=== PATIENT | female | born 2005 | race Caucasian/White ===

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

== ENCOUNTER 2024-05-26 17:03 | Outpatient (REF) | payer MEDICAID, SELFPAY ==
[2024-05-26 15:09] LABS: Epithelial Cells Moderate HPF (Negative)
[2024-05-26 15:10] LABS: Bacteria Few HPF (Negative); C & S Indicated? C&S Done As Ordered; Crystals Negative HPF (Negative); Mucus Negative (Negative)
--- OUTSIDE RECORDS SUMMARY | 2024-05-26 17:15 | XMS_ITS | Continuity of Care Document ---
Author Organization [facility] Address [address] [place] [address] Care Team Providers Care Ribbon Cleaner Name Role Phone SIERRA GUAJARDO Primary Care Physician Encounter [facility] NBR [id number] Date(s): 09/03/23 - 09/03/23 [facility] [address] [place] [address]- [place] Encounter Diagnosis Encounter for supervision of normal first , second trimester(Final) - Weeks of gestation of not specified(Final) - Discharge Disposition: Home or Self Care Attending Physician: Javier Nance MD Admitting Physician: Javier Nance MD Allergies, Adverse Reactions, Alerts No Known Allergies Assessment and Plan Future Appointments Appointment Date:09/17/2023 02:00:00 PM Scheduled Provider:Pamela Hill APRN Location:[facility] Appointment Type:OB Follow Up Medications C-Titus DHA oral capsule 1 cap, Oral, Daily, # 90 cap, 3 Refill(s), Pharmacy: [facility] #93 Start Date: 06/24/23 Status: Ordered Phenergan 12.5 mg oral tablet 12.5 mg = 1 tab, Oral, every 6 hr, PRN as needed for nausea/vomiting, # 30 tab, 1 Refill(s), Pharmacy: [facility] #[facility] Start Date: 04/15/23 Status: Ordered Tylenol 325 mg oral capsule 325 mg = 1 cap, Oral, every 4 hr, PRN as needed for pain, # 20 cap, 0 Refill(s) Start Date: 04/15/23 Status: Ordered Vitamin C 500 mg oral tablet 500 mg = 1 tab, Oral, Daily, # 90 tab, 0 Refill(s) Start Date: 06/11/23 Status: Ordered Problem List Condition Confirmation Course Effective Dates Status Health St atus Informant Confirmed 04/15/23 Active Normal first in second trimester Confirmed Active Rubella non-immune status, antepartum Confirmed Active Procedures Procedure Date Related Diagnosis Body Site Status Extraction of wisdom tooth 1 2021 Completed 1X 4 Results Laboratory List Name Date CBC w/ Diff 09/03/23 Glucose 1Hr 50 gm OB 09/03/23 Automated Diff 09/03/23 Most recent to oldest [Reference Range]: 1 WBC [4.8-10.8 K/mcL] 10.1 K/mcL (09/03/23 1:29 PM) RBC [4.20-5.40 Million/mcL] 3.73 Million /mcL *LOW* (09/03/23 1:29 PM) Neutro Auto [42.2-75.2 %] 78.3 % *HI* (09/03/23 1:29 PM) Lymph Auto [20.5-51.1 %] 16.4 % *LOW* (09/03/23 1:29 PM) Mccone Auto [1.7-9.3 %] 4.7 % (09/03/23 1:29 PM) Basophil Auto [0.0-0.8 %] 0.3 % (09/03/23 1:29 PM) Baso Absolute [0.0-0.2 K/mcL] 0.0 K/mcL (09/03/23 1:29 PM) MCV [81.0-99.0 fL] 91.5 fL (09/03/23 1:29 PM) MCHC [32.0-37.0 g/dL] 34.0 g/dL (09/03/23 1:29 PM) Lymph Absolute [1.2-3.4 K/mcL] 1.7 K/mcL (09/03/23 1:29 PM) Hct [37.0-47.0 %] 34.1 % *LOW* (09/03/23 1:29 PM) Mccone Absolute [0.1-0.6 K/mcL] 0.5 K/mcL (09/03/23 1:29 PM) MCH [27.0-31.0 pg] 31.1 pg *HI* (09/03/23 1:29 PM) Neutro Absolute [1.4-6.5 K/mcL] 7.9 K/mc L *HI* (09/03/23 1:29 PM) Hgb [12.0-16.0 g/dL] 11.6 g/dL *LOW* (09/03/23 1:29 PM) MPV [7.4-10.4 fL] 9.1 fL (09/03/23 1:29 PM) Platelets [130-400 K/mcL] 185 K/mcL (09/03/23 1:29 PM) Eos Absolute [0.0-0.2 K/mcL] 0.0 K/mcL (09/03/23 1:29 PM) RDW-CV [11.5-14.5 %] 12.8 % (09/03/23 1:29 PM) Slide Review Not Indicated (09/03/23 1:29 PM) Gluc 1hr OB 72 *NA* (09/03/23 1:29 PM) Eos, Auto [0.00-3.00 %] 0.30 % (09/03/23 1:29 PM) Social History Social History Type Response Smoking Status Smoking tobacco use: Never tobacco user;Never entered on: 06/11/23 Sex Female Patient Care team information Care Team Personnel Name: SIERRA GUAJARDO Position: No Access Member Role: Primary Care Physician Address: Address: [address] Care Team Related Persons Name: FLORESITA VICTORIA Address: Home [address] [place], [place] [phone] [facility] Name: FLORESITA VICTORIA Address: Home [address] [place], [place] [phone] [place]
--- OUTSIDE RECORDS SUMMARY | 2024-05-26 17:15 | XMS_ITS | Continuity of Care Document ---
Author Organization [facility] Address [address] [place] [address] Care Team Providers Care Machine Baster Name Role Phone SIERRA GUAJARDO Primary Care Physician Encounter [facility] NBR [id number] Date(s): 12/03/23 - 12/03/23 [facility] [address] [place] [address] [place] Encounter Diagnosis Encounter for supervision of normal first , third trimester(Final) - Discharge Disposition: Home or Self Care Attending Physician: Javier Nance MD Admitting Physician: Javier Nance MD Referring Physician: Javier Nance MD Allergies, Adverse Reactions, Alerts No Known Allergies Assessment and Plan Future Appointments Medications C-Titus DHA oral capsule 1 cap, Oral, Daily, # 90 cap, 3 Refill(s), Pharmacy: [facility] #[facility] Start Date: 06/24/23 Status: Ordered NIFEdipine 10 mg oral capsule 10 mg = 1 cap, Oral, every 6 hr, 0 Refill(s) Start Date: 10/31/23 Status: Ordered Phenergan 12.5 mg oral tablet 12.5 mg = 1 tab, Oral, every 6 hr, PRN as needed for nausea/vomiting, # 30 tab, 1 Refill(s), Pharmacy: [email or web address] Start Date: 04/15/23 Status: Ordered Protonix 40 mg oral delayed release tablet 40 mg = 1 tab, Oral, Daily, # 30 tab, 1 Refill(s), Pharmacy: [facility] #93, 165.1, cm, 11/18/23 15:24:00 EST, Height, 60.5, kg, 12/01/23 15:42:00 EST, Weight Dosing Start Date: 12/01/23 Status: Ordered Tylenol 325 mg oral capsule 325 mg = 1 cap, Oral, every 4 hr, PRN as needed for pain, # 20 cap, 0 Refill(s) Start Date: 04/15/23 Status: Ordered Vitamin C 500 mg oral tablet 500 mg = 1 tab, Oral, Daily, # 90 tab, 0 Refill(s) Start Date: 06/11/23 Status: Ordered Problem List Condition Confirmation Course Effective Dates Status H ealth Status Informant growth restriction Confirmed Active Oligohydramnios without rupture of membranes Confirmed Active Confirmed 04/15/23 Active labor Confirmed Active Rubella non-immune status, antepartum Confirmed Active Encounter for care in third trimester of first Confirmed Active Uterine size-date discrepancy, third trimester Confirmed Active Procedures Procedure Date Related Diagnosis Body Site Status Extraction of wisdom tooth 2021 Completed 1X 4 Results Radiology Reports * Exam Date Time Procedure Performing Provider Status 12/03/23 7:35 AM US OB Follow Up Fadia Rodriguez; Renu ( Verified) Notes: (US OB Follow Up) Reason For Exam: Growth S<D US OB Follow Up EXAM DESCRIPTION: US OB Follow Up 12/03/2023 INDICATION: GROWTH S<D TECHNIQUE: Grayscale obstetric ultrasound COMPARISON: 10/06/2023 FINDINGS: Single live intrauterine gestation in cephalic position with average ultrasound age of 35 weeks 0 days for an ultrasound ANGELIQUE of 01/07/2024. This gestational age is significantly less than expected gestational age of approximately 39 weeks 3 days based on prior study and time interval. BPD: 33 weeks 0 days Head circumference: 35 weeks 4 days Abdominal circumference: 35 weeks 3 days Femur length: 36 weeks 0 days heart rate was 143 beats per minute. NI is 4.8 cm which is abnormally low. Estimated weight is 2637 g which is the 2nd percentile by LMP. IMPRESSION: Single live intrauterine gestation in cephalic position with average ultrasound age of 35 weeks 0 days for an ultrasound ANGELIQUE of 01/07/2024. This gestational age is significantly less than expected gestational age based on prior study and time interval as detailed above. Oligohydramnios Estimated weight is at the 2nd percentile by LMP. Results telephoned to referring physician at the time of interpretation. JOB #: [id number] Final Signed by: Javier Allan MD Signed (Electronic Signature): 12/03/2023 8:27 am Social History Social History Type Response Smoking Status Smoking tobacco use: Never tobacco user;Never entered on: 06/11/23 Sex Female Patient Care team information Care Team Personnel Name: CASANDRA SIERRA Position: No Access Member Role: Primary Care Physician Address: Address: [id number] [place] [address] Care Team Related Persons Name: LADONNA VICTORIA Address: Home [address] [place], [place] [id number] Name: FLORESITA VICTORIA Address: Home [address] [place], [place] [phone] [facility]
--- OUTSIDE RECORDS SUMMARY | 2024-05-26 17:15 | XMS_ITS | Continuity of Care Document ---
Author Organization [facility] Address [address] [place] [address] Care Team Providers Care Pre Planning Advisor Name Role Phone SIERRA GUAJARDO Primary Care Physician Encounter [facility] NBR [id number] Date(s): 07/10/23 - 07/10/23 [facility] [address] [place] [address] [place] Discharge Disposition: Home or Self Care Attending Physician: Dillon Connolly MD Admitting Physician: Dillon Connolly MD Referring Physician: Dillon Connolly MD Allergies, Adverse Reactions, Alerts No Known Allergies Assessment and Plan Future Scheduled Tests Radiology* US OB Limited 07/10/23 Medications C-Titus DHA oral capsule 1 cap, Oral, Daily, # 90 cap, 3 Refill(s), Pharmacy: [facility] Start Date: 06/24/23 Status: Ordered Phenergan 12.5 mg oral tablet 12.5 mg = 1 tab, Oral, every 6 hr, PRN as needed for nausea/vomiting, # 30 tab, 1 Refill(s), Pharmacy: [facility] #[facility] Start Date: 04/15/23 Status: Ordered Tylenol [...] of wisdom tooth 2021 Completed 1X 4 Social History Social History Type Response Smoking Status Smoking tobacco use: Never tobacco user;Never entered on: 06/11/23 Sex Female Patient Care team information Care Team Personnel Name: CASANDRA SIERRA Position: No Access Member Role: Primary Care Physician Address: Address: [id number] [place] [address] Care Team Related Persons Name: FLORESITA VICTORIA Address: Home [address] [place] [phone] [facility] Name: FLORESITA VICTORIA Address: Home [address] [place] [phone] [facility]
--- OUTSIDE RECORDS SUMMARY | 2024-05-26 17:15 | XMS_ITS | Continuity of Care Document ---
Author Organization [facility] Address [address] [place] [address] Care Team Providers Care Manager Fashion Name Role Phone SIERRA GUAJARDO Primary Care Physician Encounter [facility] NBR [id number] Date(s): 06/11/23 - 06/11/23 [facility] Ambulatory Clinics [address] [place], [place] [address] Discharge Disposition: Home Allergies, Adverse Reactions, Alerts No Known Allergies Assessment and Plan Future Appointments Appointment Date:07/16/2023 11:15:00 AM Scheduled Provider:Pamela Hill APRN Location:[facility] Appointment Type:OB Follow Up Future Scheduled Tests Radiology* US OB Greater Than 14 Weeks 07/16/23 Medications multivitamin adult, oral tablet 1 tab, Oral, Daily, # 30 tab, 0 Refill(s) Start Date: 04/15/23 Status: Ordered Phenergan 12.5 mg oral tablet 12.5 mg = 1 tab, Oral, every 6 hr, PRN as needed for nausea/vomiting, # 30 tab, 1 Refill(s), Pharmacy: [facility] #93 Start Date: 04/15/23 Status: Ordered Multivitamins 0 Refill(s) Start Date: 05/14/23 Status: Ordered Tylenol 325 mg oral capsule [...] Member Role: Primary Care Physician Address: Address: [place] [address]- Care Team Related Persons Name: FLORESITA VICTORIA Address: Home [address] [place] [phone] [facility] Name: FLORESITA VICTORIA Address: Home [address] [place] [phone] [facility]
--- OUTSIDE RECORDS SUMMARY | 2024-05-26 17:15 | XMS_ITS | Continuity of Care Document ---
Author Organization [facility] Ambulatory Clinics Address [address] [place] [address] Care Team Providers Care Social Security Assessor Name Role Phone SIERRA GUAJARDO Primary Care Physician [phone] Encounter [facility] NBR [id number] Date(s): 09/17/23 - 09/17/23 [facility] Ambulatory Clinics [address] [place], [place] [address] Encounter Diagnosis Encounter for care in third trimester of first (Discharge Diagnosis) - 09/17/23 Discharge Disposition: Home or Self Care Attending Physician: Pamela Hill APRN Allergies, Adverse Reactions, Alerts No Known Allergies Assessment and Plan Future Appointments Appointment Date:09/30/2023 02:45:00 PM Scheduled Provider:Pamela Hill APRN Location:[facility] Appointment Type:OB Follow Up Medications C-Titus DHA oral capsule 1 cap, Oral, Daily, # 90 cap, 3 Refill(s), Pharmacy: [facility] #[facility] Start Date: 06/24/23 Status: Ordered Phenergan 12.5 mg oral tablet 12.5 mg = 1 tab, Oral, every 6 hr, PRN as needed for nausea/vomiting, # 30 tab, 1 Refill(s), Pharmacy: [facility] #93 Start Date: 04/15/23 Status: Ordered Tylenol [...] Dates Status Health St atus Informant Confirmed 7/19/23 Active Rubella non-immune status, antepartum Confirmed Active Encounter for care in third trimester of first Confirmed Active Procedures Procedure Date Related Diagnosis Body Site Status Extraction of wisdom tooth 1 2021 Completed 1X 4 Vital Signs Most recent to oldest [Reference Range]: 1 Blood Pressure [90-140/60-90 mmHg] 94/56 mmHg (09/17/23 2:07 PM) Mean Arterial Pressure, Cuff [70-110 mmH g] 69 mmHg *LOW* (09/17/23 2:07 PM) Weight 58.3 kg (09/17/23 2:07 PM) Weight Measured (lbs) 128.529 lb (09/17/23 2:07 PM) Weight Dosing 58.300 kg (09/17/23 2:07 PM) [place] Body Weight Calculated 57 kg (09/17/23 2:07 PM) Height 165.1 cm (09/17/23 2:07 PM) Height/Length Measured (inches) 65 inch (09/17/23 2:07 PM) BSA Measured 1.64 m2 (09/17/23 2:07 PM) Body Mass Index 21.39 kg/m2 (09/17/23 2:07 PM) Body Mass Index Percentile 47.97 1 (09/17/23 2:07 PM) Height/Length Percentile 61.20 2 (09/17/23 2:07 PM) Weight Percentile 53.95 3 (09/17/23 2:07 PM) 1Result Comment: ^~:!Percentile Source -[facility] 2Result Comment: ^~:!Percentile Source -[facility] 3Result Comment: ^~:!Percentile Source -[facility] Social History Social History Type Response Smoking Status Smoking tobacco use: Never tobacco user;Never entered on: 06/11/23 Sex Female Physician Outpatient Note * Pamela Hill, EXPLOSIVE ORDNANCE MANAGER: PERFORM Event Display: Office Clinic Note Physician Authored Date: [id number] MIKEY VICTORIA :2005 Age:18 years Sex:Female Visit Date:09/17/2023 Primary Care Physician: SIERRA GUAJARDO ANGELIQUE/EGA Gestational Age (EGA) and ANGELIQUE? * Note: EGA calculated as of 09/17/2023 ?? ANGELIQUE:??12/05/2023?EGA*:??28 weeks 5 days ?Type:??Authoritative?Method Date:??04/15/2023 ?Method:??Ultrasound??(04/15/2023) ?Confirmation:??Confirmed ?Description:??-- ?Comments:??-- ?Entered by:??Shashank Ling MD on 05/14/2023? Other ANGELIQUE Calculations for this : ?Method:??Ultrasound ?Method Date:??07/31/2023 ?ANGELIQUE:??12/07/2023 ?EGA (At Entry):??21 weeks 4 days ?Type:??Non-Authoritative ?Comments:?? anatomy survey was completed ?Entered by:??Pamela Hill APRN on 09/16/2023 ?Method:??Ultrasound ?Method Date:??07/10/2023 ?ANGELIQUE:??12/07/2023 ?EGA (At Entry):??18 weeks 4 days ?Type:??Non-Authoritative ?Comments:??The technologist reports that the kidneys, abdominal ? cord insertion and spine are not well seen ?Entered by:??Pamela Hill APRN on 09/16/2023 ?Method:??Ultrasound ?Method Date:??05/14/2023 ?ANGELIQUE:??12/02/2023 ?EGA (At Entry):??11 weeks 1 days ?Type:??Non-Authoritative ?Comments:??BSUS transabd ?Entered by:??Shashank Ling MD on 05/14/2023 Chief Complaint OB follow up some RLP History of Present Illness OB f/u Physical Exam Vitals & Measurements BP:??94/56?? HT:??61.20??(Percentile)?? HT:??165.1??cm?? WT:??53.95??(Percentile)?? WT:??58.3??kg?? BMI:??47.97??(Percentile)?? BMI:??21.39?? BSA:??1.64?? Risk Factors Risk Factors, Antepartum Current Preg: Other: rubella nonimmune (05/15/23) Assessment/Plan 1.??Encounter for care in third trimester of first ??Z34.03 Baby is active. No lof/bleeding/ctx. Reviewed fm counting in the setting of decreased fm. Reviewed TDAP and RSV and will consider. Cards Exam and Notes ?? Exams and Notes ?? Date:??09/17/23 EGA:??28w5d Weight (lbs kg):??*128... Fundal Height (cm):??28 ? Blood Pressure (mmHg):??94/56 ? Cervix Exam (Dil cm/Eff %/Sta -):--/--/--?? Labor S/S:??None Urine Glucose:?? Urine Protein:?? Next Visit:??+2 weeks from 09/17/2023 Baby A?FHR:??145 ? Movement:??Present per patient ?Presentation:??-- ? Date:??09/03/23 EGA:??26w5d Weight (lbs kg):??*128... Fundal Height (cm):??-- ? Blood Pressure (mmHg):??92/50 ? Cervix Exam (Dil cm/Eff %/Sta -):--/--/--?? Labor S/S:?? Urine Glucose:?? Urine Protein:?? Next Visit:? Date:??08/07/23 EGA:??22w6d Weight (lbs kg):??*117... Fundal Height (cm):??23 ? Blood Pressure (mmHg):??98/52 ? Cervix Exam (Dil cm/Eff %/Sta -):--/--/--?? Labor S/S:??None Urine Glucose:?? Urine Protein:?? Next Visit:??+4 weeks from 08/07/2023 Baby A?FHR:??156 ? Movement:??Present per patient ?Presentation:??-- ? Date:??07/10/23 EGA:??18w6d Weight (lbs kg):??*118... Fundal Height (cm):??18 ? Blood Pressure (mmHg):??108/54 ? Cervix Exam (Dil cm/Eff %/Sta -):--/--/--?? Labor S/S:??None Urine Glucose:??Negative Urine Protein:??Negative Next Visit:??+4 weeks from 07/10/2023 Baby A?FHR:??150 ? Movement:?Presentation:??-- ? Date:??06/11/23 EGA:??14w5d Weight (lbs kg):??*112... Fundal Height (cm):??14 ? Blood Pressure (mmHg):??98/62 ? Cervix Exam (Dil cm/Eff %/Sta -):--/--/--?? Labor S/S:??None Urine Glucose:??Negative Urine Protein:??Trace Next Visit:??+5 weeks from 06/11/2023 Baby A?FHR:??154 ? Movement:?Presentation:??-- ? Date:??05/14/23 EGA:??10w5d Weight (lbs kg):??*110... Fundal Height (cm):??11 ? Blood Pressure (mmHg):??106/68 ? Cervix Exam (Dil cm/Eff %/Sta -):--/--/--?? Labor S/S:?? Urine Glucose:??Negative Urine Protein:??Trace Next Visit:??+4 weeks from 05/14/2023 Baby A?FHR:??165 ? Movement:?Presentation:??-- ? Date:??04/15/23 EGA:??6w4d?? Weight (lbs kg):??*109... Fundal Height (cm):??-- ? Blood Pressure (mmHg):??104/62 ? Cervix Exam (Dil cm/Eff %/Sta -):--/--/--?? Labor S/S:?? Urine Glucose:?? Urine Protein:?? Next Visit:? Problem List/Past Medical History Ongoing Encounter for care in third trimester of first Rubella non-immune status, antepartum Historical No qualifying data Procedure/Surgical History ???Extraction of wisdom tooth (2021) Medications C-Titus DHA oral capsule, 1 cap, Oral, Daily, 3 refills Phenergan 12.5 mg oral tablet, 12.5 mg= 1 tab, Oral, every 6 hr, PRN, 1 refills Tylenol 325 mg oral capsule, 325 mg= 1 cap, Oral, every 4 hr, PRN Vitamin C 500 mg oral tablet, 500 mg= 1 tab, Oral, Daily Allergies No Known Allergies Social History Alcohol Never Electronic Cigarette/Vaping Electronic Cigarette Use: Never. Employment/School Work/School description: Looking for work. 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 Previous employment/school: Inprocess of taking GED.. Exercise Exercise frequency: 3-4 times/week. Home/Environment Lives with Father, Mother, Siblings. Living situation: Home/Independent. Sexual Sexually active: Yes. Sexual orientation: Straight or heterosexual. Substance Use Never Tobacco Never tobacco user Tobacco Use:. Never Smokeless Tobacco use:. Family History Alive and well: Mother, Father, Brother, Grandfather (M), Grandfather (P), Grandmother (M) and Grandmother (P). PCM Transcribed Labs ABO/Rh Echo: A POS Blood Type, Transcribed: A positive Chlamydia Date Performed: 05/14/23 Chlamydia, Transcribed: Negative Genetic Testing Date Performed: 05/14/23 Genetic Testing, Results Text: Inheritest: negativeMaterniT 21: negative Genetic Testing, Transcribed: Yes Gonorrhea Date Performed: 05/14/23 Gonorrhea, Transcribed: Negative Hep Bs Ag: Non Reactive1 Hepatitis B Date Performed: 05/14/23 Hepatitis B, Transcribed: Negative HIV Antibodies, Transcribed: Negative HIV Date Performed: 05/14/23 RPR Date Performed: 05/14/23 RPR, Transcribed: Negative Rubella Date Performed: 05/14/23 Rubella,Transcribed: Nonimmune Electronically Signed on 09/17/23 02:38 PM Pamela Hill APRN Patient Care team information Care Team Personnel Name: SIERRA GUAJARDO Position: No Access Member Role: Primary Care Physician Address: Address: [id number] [place] [address] Care Team Related Persons Name: FLORESITA VICTORIA Address: Home [address] [place], [place] [phone] [facility] Name: FLORESITA VICTORIA Address: Home [address] [facility] [facility] [facility] [place], [place] [phone] [facility]
--- OUTSIDE RECORDS SUMMARY | 2024-05-26 17:15 | XMS_ITS | Continuity of Care Document ---
Author Organization [facility] Ambulatory Clinics Address [address] [place] [address] Care Team Providers Care Quality Assurance Lead Name Role Phone CASANDRA SIERRA Primary Care Physician Encounter [facility] NBR [id number] Date(s): 05/14/23 - 05/14/23 [facility] Ambulatory Clinics [address] [place], [place] [address] Encounter Diagnosis Irregular menses(Discharge Diagnosis) - 05/14/23 Supervision of normal first in first trimester(Discharge Diagnosis) - 05/14/23 Discharge Disposition: Home or Self Care Attending Physician: Shashank Ling MD Allergies, Adverse Reactions, Alerts No Known Allergies Assessment and Plan Future Appointments Appointment Date:06/11/2023 09:45:00 AM Scheduled Provider:Dillon Connolly Location:[facility] Appointment Type:OB Follow Up Medications multivitamin adult, oral tablet 1 tab, Oral, Daily, # 30 tab, 0 Refill(s) Start Date: 04/15/23 Status: Ordered Phenergan 12.5 mg oral tablet 12.5 mg = 1 tab, Oral, every 6 hr, PRN as needed for nausea/vomiting, # 30 tab, 1 Refill(s), Pharmacy: [id number] Start Date: 04/15/23 Status: Ordered DHA 200 mg oral capsule 200 mg = 1 cap, Oral, Daily, # 90 cap, 4 Refill(s), Pharmacy: [id number] Start Date: 04/15/23 Status: Ordered Multivitamins 0 Refill(s) Start Date: 05/14/23 Status: Ordered Tylenol 325 mg oral capsule 325 mg = 1 cap, Oral, every 4 hr, PRN as needed for pain, # 20 cap, 0 Refill(s) Start Date: 04/15/23 Status: Ordered Problem List Condition Confirmation Course Effective Dates Status Health St [facility] Informant Confirmed 04/15/23 Active Results Most recent to oldest [Reference Range]: 1 Protein Urine Dipstick Trace (05/14/23 9:58 AM) Glucose Urine Dipstick Negative (05/14/23 9:58 AM) Urine Color Urine Dipstick Yellow (05/14/23 9:58 AM) Urine Appearance Urine Dipstick Clear (05/14/23 9:58 AM) Vital Signs Most recent to oldest [Reference Range]: 1 2 Blood Pressure [90-140/60-90 mmHg] 106/6 8mmHg (05/14/23 9:58 AM) Weight 49.9 kg (05/14/23 9:58 AM) Weight Measured (lbs) 110.011 lb (05/14/23 9:58 AM) Moon Body Weight Calculated 57 kg (05/14/23 9:58 AM) Height 165.10 cm (05/14/23 9:58 AM) 165.10 cm (05/14/23 9:58 AM) Height/Length Measured (inches) 65 inch (05/14/23 9:58 AM) BSA Measured 1.51 m2 (05/14/23 9:58 AM) Body Mass Index 18.31 kg/m2 (05/14/23 9:58 AM) 18.31 kg/m2 (05/14/23 9:58 AM) Body Mass Index Percentile 9.60 1 (05/14/23 9:58 AM) Height/Length Percentile 61.41 2 (05/14/23 9:58 AM) Weight Percentile 17.84 3 (05/14/23 9:58 AM) 1Result Comment: ^~:!Percentile Source -CDC 2Result Comment: ^~:!Percentile Source -CDC 3Result Comment: ^~:!Percentile Source -CDC Social History Social History Type Response Tobacco Never tobacco user T obacco Use:. Sex Female Physician Outpatient Note * Shashank Ling MD: PERFORM Event Display: Office Clinic Note Physician Authored Date: [id number] MIKEY VICTORIA :2005 Age:17 years Sex:Female Visit Date:05/14/2023 Primary Care Physician: YOUNG, SIERRA ANGELIQUE/EGA Gestational Age (EGA) and ANGELIQUE? * Note: EGA calculated as of 05/14/2023 ?? ANGELIQUE:??12/05/2023?EGA*:??10 weeks 5 days ?Type:??Authoritative?Method Date:??04/15/2023 ?Method:??Ultrasound??(04/15/2023) ?Confirmation:??Confirmed ?Description:??-- ?Comments:??-- ?Entered by:??Shashank Ling MD on 05/14/2023? Other ANGELIQUE Calculations for this : ?Method:??Ultrasound ?Method Date:??05/14/2023 ?ANGELIQUE:??12/02/2023 ?EGA (At Entry):??11 weeks 1 days ?Type:??Non-Authoritative ?Comments:??BSUS transabd ?Entered by:??Shashank Ling MD on 05/14/2023 Chief Complaint OB follow-up History of Present Illness She feels well overall.?? No cramps or bleeding.?? 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 She would like to move forward with genetic screening.?? She states her partner??is involved and excited about the .?? As best as she??can tell, his??health is??fine. ??He does not see a doctor for anything on a regular basis. ??No known genetic??issues in his family. Physical Exam Vitals & Measurements BP:??106/68?? HT:??61.41??(Percentile)?? HT:??165.10??cm?? HT:??165.10??cm?? WT:??17.84??(Percentile)?? WT:??49.9??kg?? BMI:??9.60??(Percentile)?? BMI:??18.31?? BMI:??18.31?? BSA:??1.51?? Risk Factors No risk factors documented Assessment/Plan 1.??Irregular menses??N92.6 ?? 2.??Supervision of normal first in first trimester??Z34.01 Overall things look good with the .?Progressing nicely.?? Her nausea has improved significantly.?? I reviewed some??early OB?? care information.?? No??concerning??issues??on further??questioning.?? She would like to move forward with genetic testing and would like to know the gender of the baby as well.?? Down for these tests as well as her routine labs today.?? I reviewed information surrounding the logistics of our practice.?? I explained the different labs that we typically recommend??and??explained when she would have her formal ultrasound. Ordered: ABO/Rh Echo, Blood, Routine, 05/14/23 17:20:00 EDT, by Gro[facility] Lab Collect, Encounter for supervision of normal first , first trimester ABSC Echo, Blood, Routine, 05/14/23 17:20:00 EDT, by Grover GOLD, Lab Collect, Encounter for supervision of normal first , first trimester Automated Diff, Blood, Routine, Collected, 05/14/23 10:51:00 EDT, by Grover GOLD, Lab Collect, Encounter for supervision of normal first , first trimester, [id number] CBC w/ Diff, Blood, Routine, Collected, 05/14/23 10:51:00 EDT, by [facility] Lab Collect, Encounter for supervision of normal first , first trimester Hepatitis B Surface Antigen, Blood, Routine, 05/14/23 17:20:00 EDT, by Grover GOLD, Lab Collect,Encounter for supervision of normal first , first trimester HIV Ag/Ab Combo 1/2, Blood, Routine, Collected, 05/14/23 10:51:00 EDT, by Grover GOLD, Lab Collect, Encounter for supervision of normal first , first trimester Inheritest Core Panel Ref, Blood, Routine, 05/14/23 17:20:00 EDT, by Grover GOLD, Lab Collect, Encounter for supervision of normal first , first trimester MaterniT 21 PLUS w/ESS and SCA Ref, Blood, Routine, 05/14/23 17:20:00 EDT, by Grover GOLD, Lab Collect, Encounter for supervision of normal first , first trimester Rubella IgG, Blood, Routine, 05/14/23 17:20:00 EDT, by Grover GOLD, Lab Collect, Encounter for supervision of normal first , first trimester Syphilis Abs Qual, Blood, Routine, 05/14/23 17:20:00 EDT, by Grover GOLD, Lab Collect, Encounterfor supervision of normal first , first trimester ?? Orders: Chlamydia trachomatis and Neisseria gonorrhoeae (GeneXpert), Urine, Routine Collect, 05/14/23 17:19:00 EDT, Once, Nurse collect, Print Label, Routine screening for STI (sexually transmitted infection) Cards Exam and Notes ?? Exams and Notes ?? Date:??05/14/23 EGA:??10w5d Weight (lbs kg):??*110... Fundal Height [...] Next Visit:? Problem List/Past Medical History Ongoing Historical No qualifying data Medications multivitamin adult, oral tablet, 1 tab, Oral, Daily Phenergan 12.5 mg oral tablet, 12.5 mg= 1 tab, Oral, every 6 hr, PRN, 1 refills DHA 200 mg oral capsule, 200 mg= 1 cap, Oral, Daily, 4 refills Multivitamins Tylenol 325 mg oral capsule, 325 mg= 1 cap, Oral, every 4 hr, PRN Allergies No Known Allergies Social History Alcohol Never Electronic Cigarette/Vaping Electronic Cigarette Use: Never. Employment/School Work/School description: Looking for work. 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 Previous employment/school: Inprocess of taking GED.. Exercise Exercise frequency: 3-4 times/week. Home/Environment Lives with Father, Mother, Siblings. Living situation: Home/Independent. Sexual Sexually active: Yes. Sexual orientation: Straight or heterosexual. Substance Use Never Tobacco Never tobacco user Tobacco Use:. Family History Alive and well: Mother, Father, Brother, Grandfather (M), Grandfather (P), Grandmother (M) and Grandmother (P). PCM Transcribed Labs No qualifying data Electronically Signed on 05/14/23 10:57 AM Shashank Ling MD Patient Care team information Care Team Personnel Name: SIERRA GUAJARDO Position: No Access Member Role: Primary Care Physician Address: Address: [place] [address]- Care Team Related Persons Name: FLORESITA VICTORIA Address: Home [address] [place], [place] [id number] [facility] Name: FLORESITA VICTORIA Address: Home [address] [place], [place] [id number] [place]
--- OUTSIDE RECORDS SUMMARY | 2024-05-26 17:15 | XMS_ITS | Continuity of Care Document ---
Author Organization [facility] Ambulatory Clinics Address [address] [place] [address] Care Team Providers Care Biofuels Processing Technician Name Role Phone SIERRA GUAJARDO Primary Care Physician [phone] Encounter [facility] NBR [id number] Date(s): 08/06/23 - 08/06/23 [facility] Ambulatory Clinics [address] [place], [place] [address] Discharge Disposition: Home Allergies, Adverse Reactions, Alerts No Known Allergies Medications C-Titus DHA oral capsule 1 cap, Oral, Daily, # 90 cap, 3 Refill(s), Pharmacy: [id number] Start Date: 06/24/23 Status: Ordered Phenergan 12.5 mg oral tablet 12.5 mg = 1 tab, Oral, every 6 hr, PRN as needed for nausea/vomiting, # 30 tab, 1 Refill(s), Pharmacy: [id number] Start Date: 04/15/23 Status: Ordered [...] Member Role: Primary Care Physician Address: Address: [address] [address]- Care Team Related Persons Name: FLORESITA VICTORIA Address: Home [address] [place], [place] [id number] [facility] Name: FLORESITA VICTORIA Address: Home [address] [place], [place] [phone] [facility]
--- OUTSIDE RECORDS SUMMARY | 2024-05-26 17:15 | XMS_ITS | Continuity of Care Document ---
Author Organization [facility] Ambulatory Clinics Address [address] [place] [address] Care Team Providers Care Substation Operator Apprentice Name Role Phone CASANDRA SIERRA Primary Care Physician [phone] Encounter [facility] NBR [id number] Date(s): 11/24/23 - 11/24/23 [facility] Ambulatory Clinics [address] [place] [address]- Encounter Diagnosis Encounter for care in third trimester of first (Discharge Diagnosis) - 11/24/23 Discharge Disposition: Home or Self Care Attending Physician: Javier Nance MD Allergies, Adverse Reactions, Alerts No Known Allergies Assessment and Plan Extracted from: Title:OB Extended Office Visit Author:Javier redman MD Date:11/24/23 1.??Encounter for c are in third trimester of first ??Z34.03 Low abdominal cramping Has had fevers and chills for 1-2 days. Had home Covid test that returned negative. Referred to urgent care for flu swab. Size measures less than dates. Referred for growth US this week. ? Ordered: US OB Follow Up, 11/24/23, Routine, Reason: Growth S<D, Transport Mode: Ambulatory, Encounter for care in third trimester of first ?? Future Appointments Appointment Date:12/03/2023 08:00:00 AM Scheduled Provider:Javier Nance MD Location:[facility] Appointment Type:OB Follow Up Appointment Date:12/07/2023 02:30:00 PM Scheduled Provider:Dillon Connolly MD Location:[facility] Appointment Type:OB Follow Up Future Scheduled Tests Radiology* US OB Follow Up 12/03/23 Medications C-Titus DHA oral capsule 1 cap, Oral, Daily, # 90 cap, 3 Refill(s), Pharmacy: [id number] Start Date: 06/24/23 Status: Ordered NIFEdipine 10 mg oral capsule 10 mg = 1 cap, Oral, every 6 hr, 0 Refill(s) Start Date: 10/31/23 Status: Ordered Phenergan 12.5 mg oral tablet 12.5 mg = 1 tab, Oral, every 6 hr, PRN as needed for nausea/vomiting, # 30 tab, 1 Refill(s), Pharmacy: [id number] Start Date: 04/15/23 Status: Ordered Tylenol [...] Health [facility] Informant Confirmed 04/15/23 Active labor Confirmed Active Rubella non-immune status, antepartum Confirmed Active Encounter for care in third trimester of first Confirmed Active Uterine size-date discrepancy, third trimester Confirmed Active Procedures Procedure Date Related Diagnosis Body Site Status Extraction of wisdom tooth 2021 Completed 1X 4 Results Most recent to oldest [Reference Range]: 1 Protein Urine Dipstick 1+ (30 mg/dl) (11/24/23 1:36 PM) Glucose Urine Dipstick Negative (11/24/23 1:36 PM) Urine Color Urine Dipstick Dark yellow (11/24/23 1:36 PM) Urine Appearance Urine Dipstick Clear (11/24/23 1:36 PM) Vital Signs Most recent to oldest [Reference Range]: 1 Blood Pressure [90-140/60-90 mmHg] 108/8 0mmHg (11/24/23 1:36 PM) Mean Arterial Pressure, Cuff [65-140 mmH g] 89 mmHg (11/24/23 1:36 PM) Weight 60.8 kg (11/24/23 1:36 PM) Weight Measured (lbs) 134.041 lb (11/24/23 1:36 PM) Weight Dosing 60.800 kg (11/24/23 1:36 PM) Weight Percentile 62.62 1 (11/24/23 1:36 PM) 1Result Comment: ^~:!Percentile Source -[facility] Social History Social History Type Response Smoking Status Smoking tobacco use: Never tobacco user;Never entered on: 06/11/23 Sex Female Physician Outpatient Note * Javier Nance MD: PERFORM Event Display: Office Clinic Note Physician Authored Date: [id number] MIKEY VICTORIA :2005 Age:18 years Sex:Female Visit Date:11/24/2023 Primary Care Physician: SIERRA GUAJARDO Chief Complaint OB FU 38wks, 3d. GBS negative 10/30. Fever and aches. COVID and flu negative. No nausea or vomiting. Staying well hydrated. Not eating, feels she has no appetite. Visit Vital Signs/Measurements Systolic Blood Ubjwryng234 mmHg Diastolic Blood Efvxiads53 mmHg Zheuen65.8 kg Urine POC Protein Urine Dipstick1+ (30 mg/dl) Glucose Urine DipstickNegative Physical Exam Vitals & Measurements BP:??108/80?? WT:??60.8??kg?? WT:??62.62??(Percentile)?? Assessment/Plan 1.??Encounter for care in third trimester of first ??Z34.03 Low abdominal cramping Has had fevers and chills for 1-2 days. Had home Covid test that returned negative. Referred to urgent care for flu swab. Size measures less than dates. Referred for growth US this week. ?? Ordered: US OB Follow Up, 11/24/23, Routine, Reason: Growth S<D, Transport Mode: Ambulatory, Encounter for care in third trimester of first ?? Future Orders US OB Follow Up, 11/24/23, Routine, Reason: Growth S<D, Transport Mode: Ambulatory, Encounter for care in third trimester of first LMP/EGA/ANGELIQUE No qualifying data available. Gestational Age (EGA) and ANGELIQUE? * Note: EGA calculated as of 11/24/2023 ?? ANGELIQUE:??12/05/2023?EGA*:??38 weeks 3 days ?Type:??Authoritative?Method Date:??04/15/2023 ?Method:??Ultrasound??(04/15/2023) ?Confirmation:??Confirmed ?Description:??-- ?Comments:??-- ?Entered by:??Shashank Ling MD on 05/14/2023? Other ANGELIQUE Calculations for this : ?Method:??Ultrasound ?Method Date:??10/06/2023 ?ANGELIQUE:??12/07/2023 ?EGA (At Entry):??31 weeks 1 days ?Type:??Non-Authoritative ?Comments:??NI 8.7 1776 grams, 40th percentile ?Entered by:??Pamela Hill APRN on 10/06/2023 ?Method:??Ultrasound ?Method Date:??07/31/2023 ?ANGELIQUE:??12/07/2023 ?EGA (At Entry):??21 [...] transabd ?Entered by:??Shashank Ling MD on 05/14/2023 OB History History?(0,0,0,0)?No previous pregnancies history have been recorded Risk Screening Risk Factors (Current ) Unique Risk Factors:?Other: 10/06/2023 growth US NI 8.7cm, 1776 grams, 40th percentile, Other: rubella nonimmune ?? Ethnic Screening Self: ??, *Other ?? *Comments Other: ??[place]ican ?? Genetic Disorders Screening Baby's Mother - Negative:?? Defect, Cystic Fibrosis, Down Syndrome, Hemophilia, Rafa's Chorea, Mental Retardation, Muscular Dystrophy, Neural Tube, Sickle Cell Disease, Odell Sachs, Thalassemia, Other, Alda Disease, Congenital Heart Defect, Maternal Metabolic Disorder, Recurrent Preg Los s/Stillbirth Problem List/Past Medical History Ongoing Encounter for care in third trimester of first labor Rubella non-immune status, antepartum Uterine size-date discrepancy, third trimester Historical Breech presentation Procedure/Surgical History ???Extraction of wisdom tooth (2021) Medications C-Titus DHA oral capsule, 1 cap, Oral, Daily, 3 refills NIFEdipine 10 mg oral capsule, 10 mg= 1 cap, Oral, every 6 hr Phenergan 12.5 mg oral tablet, 12.5 mg= 1 tab, Oral, every 6 hr, PRN, 1 refills Tylenol 325 mg oral capsule, 325 mg= 1 cap, Oral, every 4 hr, PRN Vitamin C 500 mg oral tablet, 500 mg= 1 tab, Oral, Daily Allergies No Known Allergies Social History Alcohol Never Electronic Cigarette/Vaping Electronic Cigarette Use: Never. 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 Previous employment/school: In process of taking GED.. Exercise Exercise frequency: 3-4 times/week. Home/Environment Lives with Father, Mother, Siblings. Living situation: Home/Independent. Sexual Sexually active: Yes. Sexual orientation: Straight or heterosexual. Substance Use Never Tobacco Never tobacco user Tobacco Use:. Never Smokeless Tobacco use:. Family History Alive and well: Mother, Father, Brother, Grandfather (M), Grandfather (P), Grandmother (M) and Grandmother (P). Transcribed Labs ABO/Rh Echo: A POS Blood [...] Performed: 05/14/23 Rubella,Transcribed: Nonimmune Electronically Signed on 11/24/23 02:03 PM Javier Nance MD Patient Care team information Care Team Personnel Name: SIERRA GUAJARDO Position: No Access Member Role: Primary Care Physician Address: Address: [address] [address] Care Team Related Persons Name: FLORESITA VICTORIA Address: Home [address] [id number] [facility]
--- OUTSIDE RECORDS SUMMARY | 2024-05-26 17:15 | XMS_ITS | Continuity of Care Document ---
Author Organization [facility] Ambulatory Clinics Address [address] [place] [address] Care Team Providers Care Locum Tenens Psychiatrist Name Role Phone CASANDRA SIERRA Primary Care Physician Encounter [facility] NBR [id number] Date(s): 04/15/23 - 04/15/23 [facility] Ambulatory Clinics [address] [place], [place] [address] Encounter Diagnosis Early stage of (Discharge Diagnosis) - 04/15/23 Discharge Disposition: Home or Self Care Attending Physician: Javier Nance MD Allergies, Adverse Reactions, Alerts No Known Allergies Assessment and Plan Future Appointments Appointment Date:05/14/2023 10:00:00 AM Scheduled Provider:Shashank Ling MD Location:[facility] Appointment Type:OB Follow Up Functional Status 04/15/23 Other exposure to Infectious Disease Non e Medications multivitamin adult, oral tablet 1 tab, Oral, Daily, # 30 tab, 0 Refill(s) Start Date: 04/15/23 Status: Ordered Phenergan 12.5 mg oral tablet 12.5 mg = 1 tab, Oral, every 6 hr, PRN as needed for nausea/vomiting, # 30 tab, 1 Refill(s), Pharmacy: [facility] Start Date: 04/15/23 Status: Ordered DHA 200 mg oral capsule 200 mg = 1 cap, Oral, Daily, # 90 cap, 4 Refill(s), Pharmacy: [id number] Start Date: 04/15/23 Status: Ordered Tylenol 325 mg oral capsule 325 mg = 1 cap, Oral, every 4 hr, PRN as needed for pain, # 20 cap, 0 Refill(s) Start Date: 04/15/23 Status: Ordered Problem List Condition Confirmation Course Effective Dates Status Health St [facility] Informant Confirmed 04/15/23 Active Vital Signs Most recent to oldest [Reference Range]: 1 Blood Pressure [90-140/60-90 mmHg] 104/6 2mmHg (04/15/23 9:42 AM) Weight 49.5 kg (04/15/23 9:42 AM) Weight Measured (lbs) 109.129 lb (04/15/23 9:42 AM) [place] Body Weight Calculated 57 kg (04/15/23 9:42 AM) Height 165.10 cm (04/15/23 9:42 AM) Height/Length Measured (inches) 65 inch (04/15/23 9:42 AM) BSA Measured 1.51 m2 (04/15/23 9:42 AM) Body Mass Index 18.16 kg/m2 (04/15/23 9:42 AM) Body Mass Index Percentile 8.43 1 (04/15/23 9:42 AM) Height/Length Percentile 61.47 2 (04/15/23 9:42 AM) Weight Percentile 16.50 3 (04/15/23 9:42 AM) 1Result Comment: ^~:!Percentile Source -CDC 2Result Comment: ^~:!Percentile Source -CDC 3Result Comment: ^~:!Percentile Source -CDC Social History Social History Type Response Tobacco Never tobacco user T obacco Use:. Sex Female Physician Outpatient Note * Javier Nance MD: PERFORM Event Display: Office Clinic Note Physician Authored Date: [id number] MIKEY VICTORIA ADOLPH :2005 Age:17 years Sex:Female Visit Date:04/15/2023 Primary Care Physician: SIERRA GUAJARDO Chief Complaint Unsure of LMP. Periods monthly but start at different days of the month. Lasts 2-7 days, normal flow. LMP may have been the end of January. Positive home test 2 weeks ago. On OCP, takes as directed. Breast tenderness and nausea, vomited yesterday. History of Present Illness 17 year old G0 presents today for confirmation. Menses are irregular with LMP at end of January, Reports that she has been taking oral contraceptives regularly.?? Patient is accompanied by her mother today. ??She is generally healthy has had no chronic medical problems. ?? Patient does report some difficulty with nausea and vomiting.?? Review of Systems Constitutional:?No??fevers,?No??chills,?No??sweats Eye:?No??recent visual problems ENT:?No??ear pain,?No??nasal congestion,?No??sore throat Respiratory:?No??shortness of breath,?No??cough Cardiovascular:?No??Chest pain,?No??palpitations,?No??syncope Gastrointestinal:?Nonausea,?No??vomiting,?No??diarrhea Genitourinary:?No??hematuria Gagan/Lymph:?No??bruising tendency,?No??swollen lymph glands Endocrine:?No??excessive thirst,??No??excessive hunger Musculoskeletal:??No??back pain,??No??neck pain,??No??joint pain,??No??muscle pain,??No??decreased range of motion Integumentary:?No??rash,?No??pruritus,?No??abrasions Neurologic: Alert & oriented X 4 Psychiatric:?No??anxiety,?No??depression Physical Exam Vitals & Measurements BP:??104/62?? HT:??165.10??cm?? HT:??61.47??(Percentile)?? WT:??49.5??kg?? WT:??16.50??(Percentile)?? BMI:??18.16?? BMI:??8.43??(Percentile)?? BSA:??1.51?? Assessment/Plan 1.??Early stage of ??Z34.90 Normal viable IUP. Plan for follow-up in 4 weeks.?? Did discuss plan to repeat her pelvic ultrasound to confirm viability at next visit. Discussed?? labs and aneuploidy screening to be ordered at next visit as well.?? We will also plan to order??CF screen and SMA. Prescription provided for vitamin and??Phenergan. Orders: DHA 200 mg oral capsule, 200 mg = 1 cap, Oral, Daily, # 90 cap, 4 Refill(s), Pharmacy: [facility] Phenergan 12.5 mg oral tablet, 12.5 mg = 1 tab, Oral, every 6 hr, PRN as needed for nausea/vomiting, # 30 tab, 1 Refill(s), Pharmacy: [facility] Problem List/Past Medical History Ongoing Historical No qualifying data Medications multivitamin adult, oral tablet, 1 tab, Oral, Daily Phenergan 12.5 mg oral tablet, 12.5 mg= 1 tab, Oral, every 6 hr, PRN, 1 refills DHA 200 mg oral capsule, 200 mg= 1 cap, Oral, Daily, 4 refills Tylenol 325 mg oral capsule, 325 [...] Grandfather (P), Grandmother (M) and Grandmother (P). Electronically Signed on 04/15/23 05:40 PM Jaiver Nance MD Patient Care team information Care Team Personnel Name: SIERRA GUAJARDO Position: No Access Member Role: Primary Care Physician Address: Address: [address] [address] Care Team Related Persons Name: FLORESITA VICTORIA Address: Home [address] [place] [phone] [facility]
--- OUTSIDE RECORDS SUMMARY | 2024-05-26 17:15 | XMS_ITS | Continuity of Care Document ---
Author Organization [facility] Ambulatory Clinics Address [address] [place] [address] Care Team Providers Care Automatic Machine Attendant Name Role Phone CASANDRA SIERRA Primary Care Physician Encounter [facility] NBR [id number] Date(s): 03/10/24 - 03/10/24 [facility] Ambulatory Clinics [address] [place] [address]- Encounter Diagnosis Encounter for monitoring of etonogestrel implant(Discharge Diagnosis) - 03/10/24 Encounter for surveillance of implantable subdermal contraceptive(Final) - Discharge Disposition: Home or Self Care Attending Physician: Pamela Hill APRN Allergies, Adverse Reactions, Alerts No Known Allergies Assessment and Plan Extracted from: Title:Office Visit Note Author:DAVID Torres RN Date:03/10/24 1.??Encounter for monitoring of etonogestrel implant??Z30.46 Overall she seems very happy with the implant. 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 The studies suggest an average of 5-7 episodes of bleeding in the 3 years, but the length of bleeding/spotting varies from days to weeks.??If she any??questions or concerns, to reach out.? Nurse states Sally hasn't had much to eat today, and encouraged proper nutrition and hydration as this could be why she is feeling nauseated. ?? Medications Nexplanon 68 mg subcutaneous implant 0 Refill(s) Start Date: 03/10/24 Status: Ordered Tylenol 325 mg oral capsule 325 mg = 1 cap, Oral, every 4 hr, PRN as needed for pain, # 20 cap, 0 Refill(s) Start Date: 04/15/23 Status: Ordered Problem List Condition Confirmation Course Effective Dates Status Health St atus Informant Encounter for monitoring of etonogestrel implant Confirmed Active Encounter for visit Confirmed Active Rubella non-immune status, antepartum Confirmed Active Procedures Procedure Date Related Diagnosis Body Site Status Extraction of wisdom tooth 1 2021 Completed 1X 4 Vital Signs Most recent to oldest [Reference Range]: 1 Blood Pressure [90-140/60-90 mmHg] 100/6 4mmHg (03/10/24 3:10 PM) Mean Arterial Pressure, Cuff [65-140 mmH g] 76 mmHg (03/10/24 3:10 PM) Weight 50 kg (03/10/24 3:10 PM) Weight Measured (lbs) 110.231 lb (03/10/24 3:10 PM) Weight Dosing 50.000 kg (03/10/24 3:10 PM) [place] Body Weight Calculated 57 kg (03/10/24 3:10 PM) Height 165.1 cm (03/10/24 3:10 PM) Height/Length Measured (inches) 65 inch (03/10/24 3:10 PM) BSA Measured 1.51 m2 (03/10/24 3:10 PM) Body Mass Index 18.34 kg/m2 (03/10/24 3:10 PM) Body Mass Index Percentile 8.86 1 (03/10/24 3:10 PM) Height/Length Percentile 60.93 2 (03/10/24 3:10 PM) Weight Percentile 15.90 3 (03/10/24 3:10 PM) 1Result Comment: ^~:!Percentile Source -[facility] [place] 2] 2Result Comment: ^~:!Percentile Source -[facility] [place] 2] 3Result Comment: ^~:!Percentile Source -[facility] [place]NOTE 2] Social History Social History Type Response Smoking Status Smoking tobacco use: Never tobacco user;Never entered on: 06/11/23 Sex Female summary Document * Event Display: Summary Document Authored Date: [id number] SALLY VICTORIA : 2005 Age: 18 Years SALLY VICTORIA : [birth year] Summary (Date of Report: 12/18/23) G 1 P 0 (0,0,0,0) Gestation: Miller LMP (from pt. history): -- ANGELIQUE: 12/05/2023 ANGELIQUE/EGA Method: Ultrasound EGA: Delivered Gestation info at delivery: Baby A : 39 weeks 5 days SALLY VICTORIA : [birth year] Antepartum Note Date: 12/03/23 08:42 (39 weeks) By: Javier Nance MD Severe IUGR and Oligo on USTo L&D for IOL . Date: 12/01/23 22:07 (39 weeks) By: Javier Nance MD US for growth 12/02 Date: 11/24/23 14:04 (38 weeks) By: Javier Nance MD To urgent care for flu swab. Growth US this week Date: 11/18/23 15:46 (37 weeks) By: Shashank Ling MD Doing well. Acceleron on OB Signed PP. Date: 11/09/23 16:45 (36 weeks) By: Pamela Hill APRN GBS was neg 10/30 Date: 11/04/23 15:23 (35 weeks) By: Javier Nance MD US confirms vertex Date: 10/21/23 15:23 (33 weeks) By: Shashank Ling MD Feels transverse today. Declines RSV vaccine. Acceleron Date: 10/06/23 14:39 (31 weeks) By: Pamela Hill APRN today, report pending Date: 08/07/23 13:08 (22 weeks) By: Javier Nance MD GCT next visit. Date: 07/10/23 12:05 (18 weeks) By: Dillon Connolly MD 2nd Trimester US, needs follow-up Date: 05/14/23 10:54 (10 weeks) By: Shashank Ling MD BBSUS done. Down for labs SALLY VICTORIA : 04 Problems (Active Problems Only) (SNOMED CT: 113961470, Onset: 04/15/23) Rubella non-immune (SNOMED CT: 435088578, Onset: --) Third trimester (SNOMED CT: 44376222, Onset: --) Uterine size for dates discrepancy (SNOMED CT: 9688044860, Onset: --) labor in third trimester with delivery in third trimester (SNOMED CT: 0870990243, Onset: --) Oligohydramnios (SNOMED CT: 96590543, Onset: --) Disorder of (SNOMED CT: 723212976, Onset: --) SALLY VICTORIA : [birth year] Risk Factors and Genetic Screening All Results Documented Since 04/15/2023 Risk Factors (Current ) Unique Risk Factors: Other: 10/06/2023 growth US NI 8.7cm, 1776 grams, 40th percentile, Other: rubella nonimmune Ethnic Screening Self: , *Other *Comments Other: [facility] Genetic Disorders Screening Baby's Mother - Negative: Defect, Cystic Fibrosis, Down Syndrome, Hemophilia, Swan's Chorea, Mental Retardation, Muscular Dystrophy, Neural Tube, Sickle Cell Disease, Odell Sachs, Thalassemia, Other, Alda Disease, Congenital Heart Defect, Maternal Metabolic Disorder, Recurrent Preg Loss /Stillbirth SALLY VICTORIA : 04 Gestational Age (EGA) and ANGELIQUE * Note: EGA calculated as of 12/18/2023 ANGELIQUE: 12/05/2023 EGA*: 39 weeks 5 days Type: Authoritative Method Date: 04/15/2023 Method: Ultrasound (04/15/2023) Confirmation: Confirmed Description: -- Comments: -- Entered by: Shashank Ling MD on 05/14/2023 Other ANGELIQUE Calculations for this : Method: Ultrasound Method Date: 10/06/2023 ANGELIQUE: 12/07/2023 EGA (At Entry): 31 weeks 1 days Type: Non-Authoritative Comments: NI 8.7 1776 grams, 40th percentile Entered by: Pamela Hill APRN on 10/06/2023 Method: Ultrasound Method Date: 07/31/2023 ANGELIQUE: 12/07/2023 EGA (At Entry): 21 weeks 4 days Type: Non-Authoritative Comments: anatomy survey was completed Entered by: Pamela Hill APRN on 09/16/2023 Method: Ultrasound Method Date: 07/10/2023 ANGELIQUE: 12/07/2023 EGA (At Entry): 18 weeks 4 days Type: Non-Authoritative Comments: The technologist reports that the kidneys, abdominal cord insertion and spine are not well seen Entered by: Pamela Hill APRN on 09/16/2023 Method: Ultrasound Method Date: 05/14/2023 ANGELIQUE: 12/02/2023 EGA (At Entry): 11 weeks 1 days Type: Non-Authoritative Comments: BSUS transabd Entered by: Shashank Ling MD on 05/14/2023 SALLY VICTORIA : 04 Measurements Pre- Weight: 49.90 kg 08/07/23 (22 weeks) Recent Weight Measured: 60.4 kg (+11) 12/03/23 (39 weeks) Height/Length Measured: 135.1 cm 12/03/23 (39 weeks) Body Mass Index Measured: 33.09 kg/m2 12/03/23 (39 weeks) SALLY VICTORIA : 04 Exam and Notes Date SHEILAA Debby PTL S/S Cervix BP Weight Urine Baby cm Dil Eff(%) Sta mmHg lbs kg Gluc Prot FHR Activity Fet Pres 12/03/23 39w5d -- -- 4 100% 0 123/59 *133... -- -- Baby A = 125 *Present pe... -- 12/01/23 39w3d 37 None -- -- -- 90/70 *133... Negative Trace Baby A = 125 *Present pe... Vertex 11/24/23 38w3d 35 -- -- -- -- 113/75 *133... Negative *1+ ... Baby A = 145 *Present pe... Vertex 11/18/23 37w4d 37 -- -- -- -- 104/66 *138... -- -- Baby A = 135 *Present pe... Vertex 11/09/23 36w2d 36 -- -- -- -- 94/58 *134... Negative Trace Baby A = 140 *Present pe... Vertex 11/04/23 35w4d 35 -- -- -- -- 100/64 *136... Negative Trace Baby A = 136 *Present pe... Vertex 10/31/23 35w0d -- -- 1 80% -2 111/61 *130... -- -- Baby A = 145 *Present pe... -- 10/21/23 33w4d 32 -- -- -- -- 106/60 *130... Negative Trace Baby A = 145 *Present pe... Transverse 10/06/23 31w3d 30 -- -- -- -- 104/58 *128... Negative Trace Baby A = 145 *Present pe... Vertex 09/30/23 30w4d 29 -- -- -- -- 106/68 *127... Negative Trace Baby A = 145 *Present pe... -- 09/17/23 28w5d 28 None -- -- -- 94/56 *128... -- -- Baby A = 145 *Present pe... -- 09/03/23 26w5d -- -- -- -- -- 92/50 *128... -- -- -- -- -- 08/07/23 22w6d 23 None -- -- -- 98/52 *117... -- -- Baby A = 156 *Present pe... -- 07/10/23 18w6d 18 None -- -- -- 108/54 *118... Negative Negative Baby A = 150 -- -- 06/11/23 14w5d 14 None -- -- -- 98/62 *112... Negative Trace Baby A = 154 -- -- 05/14/23 10w5d 11 -- -- -- -- 106/68 *110... Negative Trace Baby A = 165 -- -- 04/15/23 6w4d -- -- -- -- -- 104/62 *109... -- -- -- -- -- Next Visit: +1 weeks from 12/01/2023 * Weight 12/03/2023 133.182(lbs) 60.4(kg) 12/01/2023 133.403(lbs) 60.5(kg) 11/24/2023 133.028(lbs) 60.33(kg) 11/18/2023 138.033(lbs) 62.6(kg) 11/09/2023 134.064(lbs) 60.8(kg) 11/04/2023 136.269(lbs) 61.8(kg) 10/31/2023 130.095(lbs) 59(kg) 10/21/2023 130.095(lbs) 59.0(kg) 10/06/2023 128.331(lbs) 58.2(kg) 09/30/2023 127.008(lbs) 57.6(kg) 09/17/2023 128.552(lbs) 58.3(kg) 2023 128.552(lbs) 58.3(kg) 08/07/2023 117.968(lbs) 53.5(kg) 07/10/2023 118.409(lbs) 53.7(kg) 06/11/2023 112.455(lbs) 51.0(kg) 05/14/2023 110.029(lbs) 49.9(kg) 04/15/2023 109.148(lbs) 49.5(kg) * Urine Protien 11/24/2023 1+ (30 mg/dl) * Activity 12/03/2023 Present per patient 12/03/2023 Present per patient 12/03/2023 Present per patient 12/03/2023 Present per patient 12/03/2023 Present per patient 12/03/2023 Present per patient 12/03/2023 Present per patient 12/03/2023 Present per patient 12/03/2023 Present per patient 12/03/2023 Present per patient 12/03/2023 Present per patient 12/03/2023 Present per patient 12/03/2023 Present per patient 12/03/2023 Present per patient 12/03/2023 Present per patient 12/03/2023 Present per patient 12/03/2023 Present per patient 12/03/2023 Present per patient 12/03/2023 Present per patient 12/03/2023 Present per patient 12/03/2023 Present per patient 12/03/2023 Present per patient 12/03/2023 Present per patient 12/03/2023 Present per patient 12/03/2023 Present per patient 12/03/2023 Present per patient 12/01/2023 Present per patient 11/24/2023 Present per patient 11/18/2023 Present per patient 11/09/2023 Present per patient 11/04/2023 Present per patient 10/31/2023 Present per patient 10/31/2023 Present per patient 10/31/2023 Present per patient 10/31/2023 Present per patient 10/31/2023 Present per patient 10/31/2023 Present per patient 10/31/2023 Present per patient 10/31/2023 Present per patient 10/21/2023 Present per patient 10/06/2023 Present per patient 09/30/2023 Present per patient 09/17/2023 Present per patient 08/07/2023 Present per patient SALLY VICTORIA : 04 Physical Exams Physical Exam Mental Status Level of Consciousness: Alert (12/06/23) Orientation Assessment: Oriented x 4 (12/06/23) Affect/Behavior: Appropriate (12/05/23) Distress: None (12/03/23) HEENT Mouth: Mouth appears normal (10/31/23) Throat: Throat appears normal (10/31/23) Cardiovascular Cardiovascular Symptoms: None (12/06/23) Nail Bed Color: Normal for ethnicity (12/03/23) Capillary Refill: 2 seconds or less (10/31/23) Skin Temperature, Upper Extremities: Warm (10/31/23) Skin Temperature, Lower Extremities: Warm (10/31/23) Heart Rhythm: Regular (12/03/23) Respiratory Respiratory Symptoms: None (12/06/23) Respirations: Unlabored (12/06/23) Respiratory Pattern: Regular (12/06/23) Chest Motion: Symmetrical (12/05/23) SpO2: 100 % (12/03/23) Cough: None (12/06/23) Sputum Amount: Scant (12/03/23) All Lobes Breath Sounds: Clear (12/03/23) Gastrointestinal GI Symptoms: None (12/06/23) Abdomen Description: Flat (12/04/23) Abdomen Palpation: Non-Tender, Soft (12/04/23) Bowel Sounds All Quadrants: Present (12/03/23) Passing Flatus: Yes (12/04/23) Extremities Edema Edema: None (12/06/23) Integumentary Skin Color General: Usual for ethnicity (10/31/23) Skin Color: Normal for ethnicity (12/05/23) Skin Description: [place], Dry (12/03/23) Skin Temperature: Warm (12/06/23) Skin Turgor: Elastic (12/06/23) Skin Moisture General: Dry (12/06/23) Skin Integrity: Intact, no abnormalities (12/05/23) Mucous Membrane Color: [place] (12/06/23) SALLY VICTORIA : 04 Blood Types and Anti-D Immune Globulin Blood Type and Screen Mother ABO/Rh: -- Mother Antibody Screen: -- Father of Baby ABO/Rh: -- Father of Baby Antibody Screen: -- Anti-D Immune Globulin Rho(D) Initial Status: -- Rho(D) 28 Week Status: -- Rho(D) Dates Given: -- SALLY VICTORIA : 04 Tests and Lab Results Results ending with 'TR' have been keyed in by the practice or interpreted manually. Result Date: Estimated weeks post onset will display next to actual result date. Test Result Date Ref Range Urine Color Urine Dipstick Yellow 05/14/23 (10 weeks) Glucose Urine Dipstick Negative 05/14/23 (10 weeks) Urine Appearance Urine Dipstick Clear 05/14/23 (10 weeks) Protein Urine Dipstick Trace 05/14/23 (10 weeks) MCV 88.9 fL 05/14/23 (10 weeks) (81.0 - 99.0) MPV (H) 11.1 fL 05/14/23 (10 weeks) (7.4 - 10.4) WBC 7.5 K/mcL 05/14/23 (10 weeks) (4.8 - 10.8) RBC (L) 4.07 Million/mcL 05/14/23 (10 weeks) (4.20 - 5.40) Slide Review Not Indicated 05/14/23 (10 weeks) RDW-CV 12.1 % 05/14/23 (10 weeks) (11.5 - 14.5) MCHC 34.3 g/dL 05/14/23 (10 weeks) (32.0 - 36.0) Hgb 12.4 g/dL 05/14/23 (10 weeks) (12.0 - 16.0) Hct (L) 36.2 % 05/14/23 (10 weeks) (37.0 - 47.0) Platelets 215 K/mcL 05/14/23 (10 weeks) (130 - 400) MCH 30.5 pg 05/14/23 (10 weeks) (27.0 - 31.0) Neutro Absolute 5.5 K/mcL 05/14/23 (10 weeks) (1.4 - 6.5) [place] Absolute 0.3 K/mcL 05/14/23 (10 weeks) (0.1 - 0.6) Baso Absolute 0.0 K/mcL 05/14/23 (10 weeks) (0.0 - 0.2) Basophil Auto 0.5 % 05/14/23 (10 weeks) (0.0 - 0.8) [place] Auto 4.4 % 05/14/23 (10 weeks) (1.7 - 9.3) Lymph Auto (L) 20.4 % 05/14/23 (10 weeks) (20.5 - 51.1) Neutro Auto 73.5 % 05/14/23 (10 weeks) (42.2 - 75.2) Lymph Absolute 1.5 K/mcL 05/14/23 (10 weeks) (1.2 - 3.4) Imm Gran Auto 0.3 % 05/14/23 (10 weeks) (0.0 - 0.5) Imm Gran Absolute (N) 0.02 05/14/23 (10 weeks) Eos, Auto 0.90 % 05/14/23 (10 weeks) (0.00 - 3.00) Eos Absolute 0.1 K/mcL 05/14/23 (10 weeks) (0.0 - 0.2) ABO/Rh Echo (U) A POS 05/14/23 (10 weeks) ABSC Echo Negative ABSC 05/14/23 (10 weeks) Neisseria gonorrhoeae DNA -GeneXpert Not Detected 05/14/23 (10 weeks) Not Detected Chlamydia trachomatis DNA -GeneXpert Not Detected 05/14/23 (10 weeks) Not Detected Syphilis Abs Qual Non Reactive 05/14/23 (10 weeks) Non Reactive Hep Bs Ag Non Reactive 05/14/23 (10 weeks) Non Reactive Rubella IgG (N) 3.2 IntlUnit/mL 05/14/23 (10 weeks) HIV 1/2 Ag/Ab Combo by CMIA Non Reactive 05/14/23 (10 weeks) Non Reactive MaterniT 21 PLUS w/ESS and SCA Ref See scan report 05/14/23 (10 weeks) Inheritest Core Panel Ref See scan report 05/14/23 (10 weeks) Urine Color Urine Dipstick Dark yellow 06/11/23 (14 weeks) Glucose Urine Dipstick Negative 06/11/23 (14 weeks) Protein Urine Dipstick Trace 06/11/23 (14 weeks) Urine Appearance Urine Dipstick Slightly cloudy 06/11/23 (14 weeks) Protein Urine Dipstick Negative 10/13/23 (18 weeks) Urine Appearance Urine Dipstick Clear 07/10/23 (18 weeks) Urine Color Urine Dipstick Yellow 07/10/23 (18 weeks) Glucose Urine Dipstick Negative 07/10/23 (18 weeks) Test Result Date Ref Range Slide Review Not Indicated 09/03/23 (26 weeks) RDW-CV 12.8 % 09/03/23 ( weeks) (11.5 - 14.5) Platelets 185 K/mcL 09/03/23 ( weeks) (130 - 400) MPV 9.1 fL 09/03/23 ( weeks) (7.4 - 10.4) Hgb (L) 11.6 g/dL 09/03/23 ( weeks) (12.0 - 16.0) WBC 10.1 K/mcL 09/03/23 ( weeks) (4.8 - 10.8) Hct (L) 34.1 % 09/03/23 ( weeks) (37.0 - 47.0) MCHC 34.0 g/dL 09/03/23 ( weeks) (32.0 - 37.0) MCV 91.5 fL 09/03/23 ( weeks) (81.0 - 99.0) RBC (L) 3.73 Million/mcL 09/03/23 ( weeks) (4.20 - 5.40) MCH (H) 31.1 pg 09/03/23 (26 weeks) (27.0 - 31.0) Basophil Auto 0.3 % 09/03/23 (26 weeks) (0.0 - 0.8) Eos, Auto 0.30 % 09/03/23 (26 weeks) (0.00 - 3.00) Eos Absolute 0.0 K/mcL 09/03/23 (26 weeks) (0.0 - 0.2) Neutro Absolute (H) 7.9 K/mcL 09/03/23 (26 weeks) (1.4 - 6.5) [place] Absolute 0.5 K/mcL 09/03/23 (26 weeks) (0.1 - 0.6) Lymph Absolute 1.7 K/mcL 09/03/23 (26 weeks) (1.2 - 3.4) Baso Absolute 0.0 K/mcL 09/03/23 (26 weeks) (0.0 - 0.2) [place] Auto 4.7 % 09/03/23 ( weeks) (1.7 - 9.3) Lymph Auto (L) 16.4 % 09/03/23 ( weeks) (20.5 - 51.1) Neutro Auto (H) 78.3 % 09/03/23 ( weeks) (42.2 - 75.2) Gluc 1hr OB (N) 72 09/03/23 ( weeks) Test Result Date Ref Range Urine Color Urine Dipstick Yellow 09/30/23 (30 weeks) Glucose Urine Dipstick Negative 09/30/23 (30 weeks) Protein Urine Dipstick Trace 09/30/23 (30 weeks) Urine Appearance Urine Dipstick Slightly cloudy 09/30/23 (30 weeks) Protein Urine Dipstick Trace 10/06/23 (31 weeks) Glucose Urine Dipstick Negative 10/06/23 (31 weeks) Urine Appearance Urine Dipstick Cloudy 10/21/23 (33 weeks) Glucose Urine Dipstick Negative 10/21/23 (33 weeks) Urine Color Urine Dipstick Dark yellow 10/21/23 (33 weeks) Protein Urine Dipstick Trace 10/21/23 (33 weeks) Platelets 170 K/mcL 10/30/23 (34 weeks) (130 - 400) MPV 8.9 fL 10/30/23 (34 weeks) (7.4 - 10.4) MCV 90.2 fL 10/30/23 (34 weeks) (81.0 - 99.0) Hct (L) 35.9 % 10/30/23 (34 weeks) (37.0 - 47.0) MCH 30.7 pg 10/30/23 (34 weeks) (27.0 - 31.0) MCHC 34.1 g/dL 10/30/23 (34 weeks) (32.0 - 37.0) Slide Review Not Indicated 10/30/23 (34 weeks) RDW-CV 14.3 % 10/30/23 (34 weeks) (11.5 - 14.5) Hgb 12.2 g/dL 10/30/23 (34 weeks) (12.0 - 16.0) WBC (H) 14.9 K/mcL 10/30/23 (34 weeks) (4.8 - 10.8) RBC (L) 3.98 Million/mcL 10/30/23 (34 weeks) (4.20 - 5.40) Eos Absolute 0.1 K/mcL 10/30/23 (34 weeks) (0.0 - 0.2) Eos, Auto 0.50 % 10/30/23 (34 weeks) (0.00 - 3.00) Baso Absolute 0.0 K/mcL 10/30/23 (34 weeks) (0.0 - 0.2) Basophil Auto 0.3 % 10/30/23 (34 weeks) (0.0 - 0.8) Lymph Absolute 2.2 K/mcL 10/30/23 (34 weeks) (1.2 - 3.4) [place] Auto 5.3 % 10/30/23 (34 weeks) (1.7 - 9.3) [place] Absolute (H) 0.8 K/mcL 10/30/23 (34 weeks) (0.1 - 0.6) Lymph Auto (L) 14.7 % 10/30/23 (34 weeks) (20.5 - 51.1) Neutro Auto (H) 79.2 % 10/30/23 (34 weeks) (42.2 - 75.2) Neutro Absolute (H) 11.8 K/mcL 10/30/23 (34 weeks) (1.4 - 6.5) ABO/Rh Echo (U) A POS 10/30/23 (34 weeks) ABSC Echo Negative ABSC 10/30/23 (34 weeks) Group B Strep (GeneXpert) Negative 10/30/23 (34 weeks) Negative Glucose Urine Dipstick Negative 11/04/23 (35 weeks) Protein Urine Dipstick Trace 11/04/23 (35 weeks) Urine Color Urine Dipstick Dark yellow 11/04/23 (35 weeks) Urine Appearance Urine Dipstick Slightly cloudy 11/04/23 (35 weeks) Urine Appearance Urine Dipstick Slightly cloudy 11/09/23 (36 weeks) Urine Color Urine Dipstick Dark yellow 11/09/23 (36 weeks) Glucose Urine Dipstick Negative 11/09/23 (36 weeks) Protein Urine Dipstick Trace 11/09/23 (36 weeks) Protein Urine Dipstick 1+ (30 mg/dl) 11/24/23 (38 weeks) Glucose Urine Dipstick Negative 11/24/23 (38 weeks) Urine Color Urine Dipstick Dark yellow 11/24/23 (38 weeks) Urine Appearance Urine Dipstick Clear 11/24/23 (38 weeks) Influenza B (Ibeth) POCT (A) Positive 11/24/23 (38 weeks) Negative Influenza A (Ibeth) POCT Negative 11/24/23 (38 weeks) Negative Urine Appearance Urine Dipstick Cloudy 12/01/23 (39 weeks) Protein Urine Dipstick Trace 12/01/23 (39 weeks) Glucose Urine Dipstick Negative 12/01/23 (39 weeks) Urine Color Urine Dipstick Dark yellow 12/01/23 (39 weeks) Neutro Absolute (H) 8.9 K/mcL 12/03/23 (39 weeks) (1.4 - 6.5) [place] Absolute 0.5 K/mcL 12/03/23 (39 weeks) (0.1 - 0.6) Neutro Auto (H) 79.8 % 12/03/23 (39 weeks) (42.2 - 75.2) Baso Absolute 0.0 K/mcL 12/03/23 (39 weeks) (0.0 - 0.2) Lymph Absolute 1.7 K/mcL 12/03/23 (39 weeks) (1.2 - 3.4) Eos, Auto 0.10 % 12/03/23 (39 weeks) (0.00 - 3.00) [place] Auto 4.7 % 12/03/23 (39 weeks) (1.7 - 9.3) Eos Absolute 0.0 K/mcL 12/03/23 (39 weeks) (0.0 - 0.2) Basophil Auto 0.1 % 12/03/23 (39 weeks) (0.0 - 0.8) Lymph Auto (L) 15.3 % 12/03/23 (39 weeks) (20.5 - 51.1) MCHC 33.9 g/dL 12/03/23 (39 weeks) (32.0 - 37.0) MCH 30.3 pg 12/03/23 (39 weeks) (27.0 - 31.0) Platelets 289 K/mcL 12/03/23 (39 weeks) (130 - 400) Hct (L) 36.5 % 12/03/23 (39 weeks) (37.0 - 47.0) RBC (L) 4.09 Million/mcL 12/03/23 (39 weeks) (4.20 - 5.40) MCV 89.3 fL 12/03/23 (39 weeks) (81.0 - 99.0) Hgb 12.4 g/dL 12/03/23 (39 weeks) (12.0 - 16.0) WBC (H) 11.2 K/mcL 12/03/23 (39 weeks) (4.8 - 10.8) RDW-CV 13.8 % 12/03/23 (39 weeks) (11.5 - 14.5) MPV 8.3 fL 12/03/23 (39 weeks) (7.4 - 10.4) Creatinine Level (L) 0.40 mg/dL 12/03/23 (39 weeks) (0.60 - 1.20) BUN (L) 5 mg/dL 12/03/23 (39 weeks) (7 - 25) Glucose Level 77 mg/dL 12/03/23 (39 weeks) (70 - 109) Potassium Level 4.3 mmol/L 12/03/23 (39 weeks) (3.5 - 5.1) AST 17 IntlUnit/L 12/03/23 (39 weeks) (13 - 39) ALT 16 IntlUnit/L 12/03/23 (39 weeks) (7 - 52) Osmolality (L) 272 mOsm/kg 12/03/23 (39 weeks) (275 - 295) Sodium Level 138 mmol/L 12/03/23 (39 weeks) (136 - 145) Calcium Level 8.7 mg/dL 12/03/23 (39 weeks) (8.6 - 10.3) Albumin Level (L) 3.4 g/dL 12/03/23 (39 weeks) (3.5 - 5.7) Protein Total 6.6 g/dL 12/03/23 (39 weeks) (6.4 - 8.9) Bilirubin Total 0.5 mg/dL 12/03/23 (39 weeks) (0.3 - 1.0) Alk Phos (H) 148 IntlUnit/L 12/03/23 (39 weeks) (34 - 104) CO2 24 mmol/L 12/03/23 (39 weeks) (21 - 31) Chloride Level 105 mmol/L 12/03/23 (39 weeks) (98 - 107) Anion Gap 9.0 12/03/23 (39 weeks) (3.0 - 12.0) A/G Ratio 1.1 g/dL 12/03/23 (39 weeks) (1.0 - 2.5) BUN/Creat Ratio 12.5 12/03/23 (39 weeks) (8.0 - 20.0) Globulin 3.2 g/dL 12/03/23 (39 weeks) (2.3 - 3.5) eGFR CKD-EPI 146 mL/min/1.73 m2 12/03/23 (39 weeks) >=60 ABO/Rh Echo (U) A POS 12/03/23 (39 weeks) ABSC Echo Negative ABSC 12/03/23 (39 weeks) Treponema pallidum Antibodies: LC (N) Non Reactive 12/03/23 (39 weeks) Non Reactive SALYL VICTORIA: 04 Actions No Actions have been documented. SALLY VICTORIA : 04 Situational Awareness No comments have been documented. SALLY VICTORIA : 04 Allergies (Active and Proposed Allergies Only) No Known Allergies (Severity: Unknown severity, Onset: Unknown) SALLY VICTORIA : 04 Medications Prescriptions and Home Medications Currently Active or Taking ferrous sulfate 325 mg (65 mg elemental iron) oral delayed release tablet (Historically recorded) SI mg = 1 tab, Oral, Daily, 0 Refill(s) Ordered: 12/06/23 Provider: Dillon Connolly MD Tylenol 325 mg oral capsule (Historically recorded) SI mg = 1 cap, Oral, every 4 hr, PRN: as needed for pain, 20 cap, 0 Refill(s) Ordered: 04/15/23 Provider: -- Vitamin C 500 mg oral tablet (Historically recorded) SI mg = 1 tab, Oral, Daily, 90 tab, 0 Refill(s) Ordered: 06/11/23 Provider: -- Inactive or Suspended (Prescriptions and documented medications since 01/14/23) C-Titus DHA oral capsule SI cap, Oral, Daily, 90 cap, 3 Refill(s) Status: Discontinued Ordered: 06/24/23 Provider: Dillon Connolly MD multivitamin adult, oral tablet (Historically recorded) SI tab, Oral, Daily, 30 tab, 0 Refill(s) Status: Discontinued Ordered: 04/15/23 Provider: -- NIFEdipine 10 mg oral capsule (Historically recorded) SI mg = 1 cap, Oral, every 6 hr, 0 Refill(s) Status: Completed Ordered: 10/31/23 Provider: Dillon Connolly MD Phenergan 12.5 mg oral tablet SI.5 mg = 1 tab, Oral, every 6 hr, PRN: as needed for nausea/vomiting, 30 tab, 1 Refill(s) Status: Discontinued Ordered: 04/15/23 Provider: Javier Nance MD DHA 200 mg oral capsule SI mg = 1 cap, Oral, Daily, 90 cap, 4 Refill(s) Status: Discontinued Ordered: 04/15/23 Provider: Javier Nance MD Multivitamins (Historically recorded) SI Refill(s) Status: Discontinued Ordered: 05/14/23 Provider: -- Protonix 40 mg oral delayed release tablet SI mg = 1 tab, Oral, Daily, 30 tab, 1 Refill(s) Status: Discontinued Ordered: 12/01/23 Provider: Javier Nance MD Medication Administrations In-Office/Hospital (All in-office/hospital administrated medications ordered since 01/14/23) betamethasone 30 mg = 5 mL, N/A, Once Status: Completed Ordered: 10/31/23 Provider: Dorian Sun betamethasone (Betamethasone Acet-Phos 6 mg/ml Inj 5ml [LTTL]) 12 mg = 2 mL, Intramuscular, Once Status: Completed Ordered: 10/31/23 Provider: Dillon Connolly MD betamethasone (Betamethasone Acet-Phos 6 mg/ml Inj 5ml [LTTL]) 12 mg = 2 mL, Intramuscular, Once Status: Completed Ordered: 10/31/23 Provider: Dillon Connolly MD BUPivacaine 0.25% preservative-free (bupivacaine) 75 mg = 30 mL, N/A, Once Status: Completed Ordered: 12/03/23 Provider: DomainUser, Generated lidocaine 1% (lidocaine) 20 mL, N/A, Once Status: Completed Ordered: 12/03/23 Provider: DomainUser, Generated lidocaine 1% injectable solution (lidocaine 1% 20 mL Vial [LTTL]) 20 mL, !-percutaneous, Once Status: Completed Ordered: 12/03/23 Provider: Dillon Connolly MD Methergine (methylergonovine 0.2 mg/mL 1 mL Vial [LTTL]) 0.2 mg = 1 mL, Intramuscular, Once Status: Completed Ordered: 12/03/23 Provider: Dillon Connolly MD mineral oil 100% (mineral oil) 30 mL, N/A, Once Status: Completed Ordered: 12/03/23 Provider: CynthiaUser, Generated morphine (Morphine 2 mg/mL Inj 1 ml [LTTL]) 5 mg = 2.5 mL, Intramuscular, Once Status: Completed Ordered: 10/31/23 Provider: Dillon Connolly MD morphine 6 mg = 3 mL, N/A, Once Status: Completed Ordered: 10/31/23 Provider: CynthiaUser, Generated NIFEdipine (NIFEdipine 10 mg Cap [LTTL]) 10 mg = 1 cap, Oral, every 6 hr Status: Completed Ordered: 10/31/23 Provider: Dillon Connolly MD NIFEdipine (NIFEdipine 10 mg Cap [LTTL]) 20 mg = 2 cap, Oral, Once Status: Completed Ordered: 10/31/23 Provider: Dillon Connolly MD NIFEdipine (NIFEdipine 10 mg Cap [LTTL]) 20 mg = 2 cap, Oral, Once Status: Completed Ordered: 10/31/23 Provider: Dillon Connolly MD NIFEdipine 20 mg = 2 cap, N/A, Once Status: Completed Ordered: 10/31/23 Provider: DomainUser, Generated oxytocin 10 units = 1 mL, N/A, Once Status: Completed Ordered: 12/03/23 Provider: DomainUser, Generated Phenergan (Promethazine 25 mg/mL Inj 1 mL Vial [LTTL]) 12.5 mg = 0.5 mL, Intramuscular, Once Status: Completed Ordered: 10/31/23 Provider: Dillon Connolly MD promethazine 25 mg = 1 mL, N/A, Once Status: Completed Ordered: 10/31/23 Provider: CynthiaUser Generated ROPivacaine 0.2% (ropivacaine) 200 mg = 100 mL, N/A, Once Status: Completed Ordered: 12/03/23 Provider: DadarDorian acetaminophen (acetaminophen 325 mg Tab [LTTL]) 650 mg = 2 tab, Oral, every 4 hr, PRN: pain, mild Status: Discontinued Ordered: 12/03/23 Provider: Dillon Connolly MD benzocaine-menthol 20%-0.5% topical spray (benzocaine-menthol 20-0.5% topical Oriental [LTTL]) 1 luz, Topical, As Directed, PRN: other (see comment) Status: Discontinued Ordered: 12/03/23 Provider: Dillon Connolly MD calcium (as carbonate) 500 mg oral tablet (Calcium Carbonate 500 mg Chew Tab (Tums) [LTTL]) 500 mg = 1 tab, Oral, every 2 hr, PRN: dyspepsia Status: Discontinued Ordered: 12/03/23 Provider: Dillon Connolly MD calcium (as carbonate) 500 mg oral tablet (Calcium Carbonate 500 mg Chew Tab (Tums) [LTTL]) 1,000 mg = 2 tab, Oral, every 2 hr, PRN: dyspepsia Status: Discontinued Ordered: 12/03/23 Provider: Dillon Connolly MD docusate-senna 50 mg-8.6 mg oral tablet (docusate-senna 50 mg-8.6 mg Tab [LTTL]) 1 tab, Oral, BID, PRN: constipation Status: Discontinued Ordered: 12/03/23 Provider: Dillon Connolly MD ferrous sulfate (Ferrous Sulfate 325 mg Tab [LTTL]) 325 mg = 1 tab, Oral, Daily Status: Discontinued Ordered: 12/03/23 Provider: Dillon Connolly MD ibuprofen (Ibuprofen 600 mg Tab [LTTL]) 600 mg = 1 tab, Oral, every 4 hr, PRN: pain, mild Status: Discontinued Ordered: 12/03/23 Provider: Dillon Connolly MD methylergonovine (methylergonovine 0.2 mg/mL 1 mL Vial [LTTL]) 0.2 mg = 1 mL, Intramuscular, Once, PRN: other (see comment) Status: Discontinued Ordered: 12/03/23 Provider: Dillon Connolly MD miSOPROStol (miSOPROStol 25 mcg (Quarter) Tab [LTTL]) 25 mcg = 0.25 tab, Vaginal, every 3 hr, PRN: other (see comment) Status: Discontinued Ordered: 12/03/23 Provider: Dillon Connolly MD miSOPROStol (miSOPROStol 50 mcg (Half) Tab [LTTL]) 50 mcg = 0.5 tab, Vaginal, every 3 hr, PRN: other (see comment) Status: Discontinued Ordered: 12/03/23 Provider: Dillon Connolly MD miSOPROStol (miSOPROStol 200 mcg Tab [LTTL]) 1,000 mcg = 5 tab, Rectal, Once, PRN: bleeding Status: Discontinued Ordered: 12/03/23 Provider: Dillon Connolly MD morphine (morphine 10 mg/mL 1 mL Vial [LTTL]) 10 mg = 1 mL, Intramuscular, Once Status: Discontinued Ordered: 12/03/23 Provider: Dillon Connolly MD morphine (morphine 4 mg/mL 1 mL Vial [LTTL]) 12 mg = 3 mL, Intramuscular, Once Status: Discontinued Ordered: 12/03/23 Provider: Dillon Connolly MD multivitamin, (Multiple Vitamins [LTTL]) 1 tab, Oral, Daily Status: Discontinued Ordered: 12/03/23 Provider: Dillon Connolly MD naloxone (naloxone 0.4 mg/mL 1 mL Vial [LTTL]) 0.1 mg = 0.25 mL, IV Push, every 5 min, PRN: other (see comment) Status: Discontinued Ordered: 12/03/23 Provider: Dillon Connolly MD NIFEdipine (NIFEdipine 10 mg Cap [LTTL]) 10 mg = 1 cap, Oral, every 6 hr Status: Discontinued Ordered: 10/31/23 Provider: Dillon Connolly MD oxytocin (oxytocin 10 units/mL 1 mL Vial [LTTL]) 10 units = 1 mL, Intramuscular, Once, PRN: other (see comment) Status: Discontinued Ordered: 12/03/23 Provider: Dillon Connolly MD oxytocin IV additive 10 units + LR Diluent 1,000 mL (oxytocin 10 units + Lactated Ringers 1,000 mL) Titrate per protocol, IV Status: Discontinued Ordered: 12/03/23 Provider: Dillon Connolly MD oxytocin IV additive 30 units + LR Diluent 500 mL (oxytocin 30 units + Lactated Ringers 500 mL) Titrate Per Protocol, IV Status: Discontinued Ordered: 12/03/23 Provider: Dillon Connolly MD Phenergan (promethazine 25 mg/mL 1 mL Vial [LTTL]) 25 mg = 1 mL, Intramuscular, Once Status: Discontinued Ordered: 12/03/23 Provider: Dillon Connolly MD ropivacaine 0.2% IV additive 200 mg + Premix Diluent 100 mL (ROPivacaine 0.2% 200 mg + Premix Diluent 100 mL) 10 mL/hr, Epidural Status: Discontinued Ordered: 12/03/23 Provider: Jay Pickett simethicone (simethicone 80 mg Chew Tab [LTTL]) 80 mg = 1 tab, Oral, As Directed, PRN: gas Status: Discontinued Ordered: 12/03/23 Provider: Dillon Connolly MD tranexamic acid 1,000 mg = 10 mL, 330 mL/hr, IV Piggyback, Once, PRN: bleeding Status: Discontinued Ordered: 12/03/23 Provider: Dillon Connolly MD witch jane 50% rectal pad (Witch Jane 50% Top Pad [LTTL]) 1 luz, Topical, As Directed, PRN: other (see comment) Status: Discontinued Ordered: 12/03/23 Provider: Dillon Connolly MD SALLY VICTORIA : 04 Immunizations No immunizations have been administered or recorded as given SALLY VICTORIA : 04 Menstrual History Last Recorded Menstrual Period: -- Last Menstrual Period Description: Normal amount/duration Menarche Onset: 13 years Menarche Frequency: -- Menarche Length: 2-7 days Date of Menses Prior to LMP: -- On Hormonal Contracept within 2 months of LMP: -- Date of Home Test: -- Comments: monthly, lasting 2-7 days, normal flow SALLY VICTORIA : 04 History (0,0,0,0) No previous pregnancies history have been recorded SALLY VICTORIA : 04 Medical History Past Medical History Malpresentation of fetus (SNOMED CT: ) Onset Age: -- Resolved: -- Family History Father (Name not documented, Alive) Alive and well Mother (Name not documented, Alive) Alive and well Brother (Name not documented, Alive) Alive and well Grandfather (M) (Name not documented, Alive) Alive and well Grandfather (P) (Name not documented, Alive) Alive and well Grandmother (M) (Name not documented, Alive) Alive and well Grandmother (P) (Name not documented, Alive) Alive and well Procedure or Surgical History Delivery of Products of Conception, External Approach Age: 18 Years Date: 12/03/2023 Introduction of Hormone into Female Reproductive, Via Natural or Artificial Opening Age: 18 Years Date: 12/03/2023 Repair Perineum Skin, External Approach Age: 18 Years Date: 12/03/2023 Extraction of wisdom tooth Age: 16 Years Date: 2021 Comment: X 4 (Alissa Das on 06/11/23) SALLY VICTORIA ML : 04 Social & Psychosocial History Social History Alcohol Never Employment/School 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 Previous employment/school: In process of taking GED.. Exercise Exercise frequency: 3-4 times/week. Home/Environment Lives with Father, Mother, Siblings. Living situation: Home/Independent. Sexual Sexually active: Yes. Sexual orientation: Straight or heterosexual. Substance Abuse Never Tobacco Never tobacco user Tobacco Use:. Never Smokeless Tobacco use:. Electronic Cigarette/Vaping Electronic Cigarette Use: Never. Psychosocial History No active psychosocial history has been recorded SALLY VICTORIA : 04 Infection History Infection history negative or not recorded SALLY VICTORIA : 04 Anesthesia and Transfusions Prior Anesthesia or Transfusion Received: Prior general anesthesia, No prior transfusion Prior Anesthesia Reaction(s): -- Prior Transfusion Reaction(s): -- Blood Transfusion Acceptable to Patient: -- SALLY VICTORIA : 04 Plan and Patient Requests Desired Delivery Location: -- Education: -- Written Plan: -- Written Plan Location: -- Support Person/Paper Plate Machine Tender Relationship to Pt: -- Oral Intake OB: -- Labor Preferences: -- Non-Medicinal Pain Relief: -- Anesthesia/Pain Medication During Labor: -- Delivery Plan: -- Infant Feeding: -- Circumcision: -- Baby For Adoption: -- Patient Requests: -- Father of the Baby's Name: -- Fabrication Technician Selected: -- Surrogate : -- Support Person's Name: -- SALLY VICTORIA : 04 Education Educational Materials/Leaflets Provided Title/Topic Date Provided [facility] - Vaginal or Delivery Post Discharge Instructions 12/06/23 and Breast Care, [id number] 12/06/23 Influenza, Adult 11/24/23 Labor, [id number] 10/31/23 SALLY VICTORIA : 04 Registration and Information Race: White Ethnicity: Not , , or Japanese Origin Marital Status: Single Language(s): Faroese Gnosticist Preference(s): Mandaeism Occupation/Education: Address, Phone, and Health Plans Home Address: [address], [place], [place] [id number] (Home), , -- Health Plans: 1 - SELF PAY Member/Group: -- Deductible: $ -- Type: Self Pay Address: [address] [address], [place] [address] Phone: -- 2 - [place] Member/Group: [id number] Deductible: $ -- Type: Medicaid Address: [address] [id number] 3 - [place] Member/Group: [id number] Deductible: $ -- Type: Medicaid Address: [address] [id number] General Information OB Provider(s) Information: Not explicitly recorded. May be noted in encounter section below. See below for detailed information for all visits and information. Delivery Center/Hospital Information: -- [facility] Provider Information: -- Referring Provider Information: Javier Nance MD Primary Provider Information: SIERRA GUAJARDO /Partner Information: -- -- Support Person Information: -- Planned/Unplanned : -- Date Consent Signed for Tubal Ligation: -- Date Record Sent to Hospital: -- SALLY VICTORIA : 04 Visits and Encounters (Known encounters since 04/15/2023. May include lab encounters.) Date Location Provider Type Medical Service 01/18/2024 [facility] Dillon Connolly MD [facility] 12/21/2023 [facility] Pamela Hill, [facility] 12/07/2023 [facility] -- [facility] 12/03/2023 Sofia Nance MD Inpatient Inpatient 12/03/2023 Sofia Connolly MD Inpatient Inpatient 12/03/2023 4 Javier Nance MD Clinic Clinic 12/03/2023 [facility] Javier Nance MD Outpatient 12/01/2023 4 Javier Nance MD Clinic Clinic 11/25/2023 [facility] -- Between Visit -- 11/24/2023 1 Eli Osorio, [facility] Clinic Clinic 11/24/2023 T2 Javier Nance MD Clinic Clinic 11/18/2023 1 Shashank Ling MD Clinic Clinic 11/09/2023 [facility] Pamela [place], [facility] Clinic Clinic 11/04/2023 5 Javier Nance MD Clinic Clinic 11/02/2023 [facility] -- Between Visit -- 10/30/2023 Sofia Connolly MD Inpatient Inpatient 10/21/2023 [facility] Shashank Ling MD Clinic Clinic 10/06/2023 [facility] Pamela Hill, [facility] Clinic Clinic 10/06/2023 [facility], [facility] Outpatient 09/30/2023 [facility] Pamela Hill, [facility] Clinic Clinic 09/17/2023 [facility] [place], [facility] Clinic Clinic 09/04/2023 [facility] -- Between Visit -- 2023 [facility] Javier Nance MD Outpatient Lab 2023 4 Javier Nance MD Clinic Clinic 08/07/2023 4 Javier Nance MD Clinic Clinic 08/06/2023 [facility]/2023 [facility] -- Between Visit -- 07/10/2023 3 Dillon Cononlly MD Clinic Clinic 07/10/2023 [facility] Dillon Connolly MD Outpatient 06/11/2023 [facility] -- Between Visit -- 06/11/2023 [facility] Dillon Connolly MD Outpatient Lab 06/11/2023 T2 Dillon Connolly MD Clinic Clinic 05/14/2023 [facility] Shashank Ling MD Outpatient Lab 05/14/2023 [facility] Shashank Ling MD Outpatient Lab 05/14/2023 3 Shashank Ling MD Clinic Clinic 04/15/2023 4 Javier Nance MD Clinic Clinic SALLY VICTORIA : 04 Visit / Encounter Location Information The following information represents known location and contact information for locations visitedduring [facility] Business Address: [address] [place] [address] Phone:[phone] [employer]) [facility] Business Address: [address] [place] [address] Phone: No phone numbers found on file for location SALLY VICTORIA : 04 Visit Diagnosis (Note: All diagnoses documented since 04/15/2023) 12/03/23 - Maternal care for other known or suspected poor growth, third trimester, not applicable or unspecified (ICD-10-CM: O36.5930, Date: ) 12/03/23 - 39 weeks gestation of (ICD-10-CM: Z3A.39, Date: ) 12/03/23 - Other underimmunization status (ICD-10-CM: Z28.39, Date: ) 12/03/23 - Spinal and epidural anesthesia-induced headache during the puerperium (ICD-10-CM: O89.4,Date: ) 12/03/23 - First degree perineal laceration during delivery (ICD-10-CM: O70.0, Date: ) 12/03/23 - Single live (ICD-10-CM: Z37.0, Date: ) 12/03/23 - Oligohydramnios, third trimester, not applicable or unspecified (ICD-10-CM: O41.03X0, Date: ) 12/03/23 - Maternal care for other known or suspected poor growth, third trimester, not applicable or unspecified (ICD-10-CM: O36.5930, Date: ) 12/03/23 - Other underimmunization status (ICD-10-CM: Z28.39, Date: 12/03/23) 12/03/23 - Supervision of other high risk pregnancies, unspecified trimester (ICD-10-CM: O09.899, Date: 12/03/23) 12/03/23 - Oligohydramnios, third trimester, fetus 1 (ICD-10-CM: O41.03X1, Date: 12/03/23) 12/03/23 - Maternal care for other known or suspected poor growth, third trimester, fetus 1 (ICD-10-CM: O36.5931, Date: 12/03/23) 12/03/23 - Encounter for full-term uncomplicated delivery (ICD-10-CM: O80, Date: 12/03/23) 12/03/23 - Encounter for supervision of normal first , third trimester (ICD-10-CM: Z34.03,Date: ) 12/03/23 - 39 weeks gestation of (ICD-10-CM: Z3A.39, Date: ) 12/03/23 - Encounter for supervision of normal first , third trimester (ICD-10-CM: Z34.03,Date: ) 12/03/23 - Encounter for supervision of normal first , third trimester (ICD-10-CM: Z34.03,Date: 12/03/23) 12/03/23 - Encounter for supervision of normal first , third trimester (ICD-10-CM: Z34.03,Date: ) 12/03/23 - Encounter for supervision of normal first , third trimester (ICD-10-CM: Z34.03,Date: ) 12/03/23 - Encounter for supervision of normal first , third trimester (ICD-10-CM: Z34.03,Date: ) 12/01/23 - Encounter for supervision of normal first , third trimester (ICD-10-CM: Z34.03,Date: ) 12/01/23 - 39 weeks gestation of (ICD-10-CM: Z3A.39, Date: ) 12/01/23 - Encounter for supervision of normal first , third trimester (ICD-10-CM: Z34.03,Date: ) 12/01/23 - Encounter for supervision of normal first , third trimester (ICD-10-CM: Z34.03,Date: 12/01/23) 11/24/23 - Nasal congestion (ICD-10-CM: R09.81, Date: ) 11/24/23 - Influenza due to unidentified influenza virus with other respiratory manifestations (ICD-10-CM: J11.1, Date: ) 11/24/23 - 38 weeks gestation of (ICD-10-CM: Z3A.38, Date: ) 11/24/23 - Cough, unspecified (ICD-10-CM: R05.9, Date: ) 11/24/23 - Nasal congestion (ICD-10-CM: R09.81, Date: ) 11/24/23 - Influenza due to unidentified influenza virus with other respiratory manifestations (ICD-10-CM: J11.1, Date: 11/24/23) 11/24/23 - Encounter for supervision of normal first , third trimester (ICD-10-CM: Z34.03,Date: ) 11/24/23 - 38 weeks gestation of (ICD-10-CM: Z3A.38, Date: ) 11/24/23 - Encounter for supervision of normal first , second trimester (ICD-10-CM: Z34.02, Date: ) 11/24/23 - Encounter for supervision of normal first , third trimester (ICD-10-CM: Z34.03,Date: 11/24/23) 11/18/23 - Supervision of other high risk pregnancies, third trimester (ICD-10-CM: O09.893, Date: ) 11/18/23 - 37 weeks gestation of (ICD-10-CM: Z3A.37, Date: ) 11/18/23 - Other underimmunization status (ICD-10-CM: Z28.39, Date: ) 11/18/23 - Supervision of other high risk pregnancies, third trimester (ICD-10-CM: O09.893, Date: ) 11/18/23 - Supervision of other high risk pregnancies, unspecified trimester (ICD-10-CM: O09.899, Date: 11/18/23) 11/18/23 - Other underimmunization status (ICD-10-CM: Z28.39, Date: 11/18/23) 11/18/23 - Encounter for supervision of normal first , third trimester (ICD-10-CM: Z34.03,Date: 11/18/23) 11/09/23 - Encounter for supervision of normal first , third trimester (ICD-10-CM: Z34.03,Date: ) 11/09/23 - 36 weeks gestation of (ICD-10-CM: Z3A.36, Date: ) 11/09/23 - Encounter for supervision of normal first , third trimester (ICD-10-CM: Z34.03,Date: ) 11/09/23 - Encounter for supervision of normal first , third trimester (ICD-10-CM: Z34.03,Date: 11/09/23) 11/04/23 - Encounter for supervision of normal first , third trimester (ICD-10-CM: Z34.03,Date: ) 11/04/23 - 35 weeks gestation of (ICD-10-CM: Z3A.35, Date: ) 11/04/23 - Encounter for supervision of normal first , third trimester (ICD-10-CM: Z34.03,Date: ) 11/04/23 - Encounter for supervision of normal first , third trimester (ICD-10-CM: Z34.03,Date: 11/04/23) 10/30/23 - labor without delivery, third trimester (ICD-10-CM: O60.03, Date: ) 10/30/23 - Other underimmunization status (ICD-10-CM: Z28.39, Date: ) 10/30/23 - 35 weeks gestation of (ICD-10-CM: Z3A.35, Date: ) 10/30/23 - Maternal care for other malpresentation of fetus, not applicable or unspecified (ICD-10-CM: O32.8XX0, Date: ) 10/30/23 - labor without delivery, third trimester (ICD-10-CM: O60.03, Date: ) 10/30/23 - Supervision of other high risk pregnancies, unspecified trimester (ICD-10-CM: O09.899, Date: 10/31/23) 10/30/23 - Other underimmunization status (ICD-10-CM: Z28.39, Date: 10/30/23) 10/30/23 - labor third trimester with delivery third trimester, fetus 1 (ICD-10-CM:O60.14X1, Date: 10/31/23) 10/30/23 - Maternal care for breech presentation, fetus 1 (ICD-10-CM: O32.1XX1, Date: 10/31/23) 10/21/23 - Encounter for supervision of normal first , third trimester (ICD-10-CM: Z34.03,Date: ) 10/21/23 - 33 weeks gestation of (ICD-10-CM: Z3A.33, Date: ) 10/21/23 - Encounter for supervision of normal first , third trimester (ICD-10-CM: Z34.03,Date: ) 10/21/23 - Encounter for supervision of normal first , third trimester (ICD-10-CM: Z34.03,Date: 10/21/23) 10/06/23 - Encounter for supervision of normal first , third trimester (ICD-10-CM: Z34.03,Date: ) 10/06/23 - 31 weeks gestation of (ICD-10-CM: Z3A.31, Date: ) 10/06/23 - Encounter for supervision of normal first , third trimester (ICD-10-CM: Z34.03,Date: ) 10/06/23 - Encounter for supervision of normal first , third trimester (ICD-10-CM: Z34.03,Date: 10/06/23) 10/06/23 - Uterine size-date discrepancy, third trimester (ICD-10-CM: O26.843, Date: ) 10/06/23 - Uterine size-date discrepancy, third trimester (ICD-10-CM: O26.843, Date: ) 10/06/23 - Uterine size-date discrepancy, third trimester (ICD-10-CM: O26.843, Date: ) 09/30/23 - Uterine size-date discrepancy, third trimester (ICD-10-CM: O26.843, Date: ) 09/30/23 - 30 weeks gestation of (ICD-10-CM: Z3A.30, Date: ) 09/30/23 - Uterine size-date discrepancy, third trimester (ICD-10-CM: O26.843, Date: ) 09/30/23 - Uterine size-date discrepancy, third trimester (ICD-10-CM: O26.843, Date: 09/30/23) 09/30/23 - Encounter for supervision of normal first , third trimester (ICD-10-CM: Z34.03,Date: 09/30/23) 09/17/23 - Encounter for supervision of normal first , third trimester (ICD-10-CM: Z34.03,Date: ) 09/17/23 - 28 weeks gestation of (ICD-10-CM: Z3A.28, Date: ) 09/17/23 - Encounter for supervision of normal first , third trimester (ICD-10-CM: Z34.03,Date: ) 09/17/23 - Encounter for supervision of normal first , third trimester (ICD-10-CM: Z34.03,Date: 09/17/23) 09/03/23 - Encounter for supervision of normal first , second trimester (ICD-10-CM: Z34.02, Date: ) 09/03/23 - Weeks of gestation of not specified (ICD-10-CM: Z3A.00, Date: ) 09/03/23 - Encounter for supervision of normal first , second trimester (ICD-10-CM: Z34.02, Date: 09/03/23) 09/03/23 - Encounter for supervision of normal first , second trimester (ICD-10-CM: Z34.02, Date: 09/03/23) 09/03/23 - Encounter for supervision of normal first , second trimester (ICD-10-CM: Z34.02, Date: ) 09/03/23 - Encounter for supervision of normal first , second trimester (ICD-10-CM: Z34.02, Date: ) 09/03/23 - 26 weeks gestation of (ICD-10-CM: Z3A.26, Date: ) 09/03/23 - Encounter for supervision of normal first , third trimester (ICD-10-CM: Z34.03,Date: 10/12/23) 08/07/23 - Encounter for supervision of normal first , second trimester (ICD-10-CM: Z34.02, Date: ) 08/07/23 - 22 weeks gestation of (ICD-10-CM: Z3A.22, Date: ) 08/07/23 - Encounter for supervision of normal first , second trimester (ICD-10-CM: Z34.02, Date: ) 08/07/23 - Encounter for supervision of normal first , second trimester (ICD-10-CM: Z34.02, Date: 08/07/23) 07/31/23 - Encounter for supervision of normal first , second trimester (ICD-10-CM: Z34.02, Date: ) 07/31/23 - Encounter for supervision of normal first , second trimester (ICD-10-CM: Z34.02, Date: ) 07/31/23 - Encounter for supervision of normal first , second trimester (ICD-10-CM: Z34.02, Date: ) 07/10/23 - Encounter for supervision of normal first , second trimester (ICD-10-CM: Z34.02, Date: ) 07/10/23 - Other underimmunization status (ICD-10-CM: Z28.39, Date: ) 07/10/23 - 14 weeks gestation of (ICD-10-CM: Z3A.14, Date: ) 07/10/23 - Supervision of other high risk pregnancies, second trimester (ICD-10-CM: O09.892, Date: ) 07/10/23 - Supervision of other high risk pregnancies, unspecified trimester (ICD-10-CM: O09.899, Date: 07/10/23) 07/10/23 - Other underimmunization status (ICD-10-CM: Z28.39, Date: 07/10/23) 07/10/23 - Encounter for supervision of normal first , second trimester (ICD-10-CM: Z34.02, Date: 07/10/23) 07/10/23 - Encounter for supervision of normal first , second trimester (ICD-10-CM: Z34.02, Date: ) 07/10/23 - Encounter for supervision of normal first , second trimester (ICD-10-CM: Z34.02, Date: ) 06/11/23 - Encounter for supervision of normal first , second trimester (ICD-10-CM: Z34.02, Date: ) 06/11/23 - Encounter for supervision of normal first , second trimester (ICD-10-CM: Z34.02, Date: ) 06/11/23 - Encounter for supervision of normal first , second trimester (ICD-10-CM: Z34.02, Date: 06/11/23) 06/11/23 - Encounter for supervision of normal first , second trimester (ICD-10-CM: Z34.02, Date: ) 06/11/23 - Other underimmunization status (ICD-10-CM: Z28.39, Date: ) 06/11/23 - 14 weeks gestation of (ICD-10-CM: Z3A.14, Date: ) 06/11/23 - Supervision of other high risk pregnancies, second trimester (ICD-10-CM: O09.892, Date: ) 06/11/23 - Other underimmunization status (ICD-10-CM: Z28.39, Date: 06/11/23) 06/11/23 - Supervision of other high risk pregnancies, unspecified trimester (ICD-10-CM: O09.899, Date: 06/11/23) 06/11/23 - Encounter for supervision of normal first , second trimester (ICD-10-CM: Z34.02, Date: 06/11/23) 05/14/23 - Encounter for supervision of normal first , first trimester (ICD-10-CM: Z34.01,Date: ) 05/14/23 - Encounter for supervision of normal first , first trimester (ICD-10-CM: Z34.01,Date: 05/14/23) 05/14/23 - Encounter for supervision of normal first , first trimester (ICD-10-CM: Z34.01,Date: 05/14/23) 05/14/23 - Encounter for supervision of normal first , first trimester (ICD-10-CM: Z34.01,Date: 05/14/23) 05/14/23 - Encounter for supervision of normal first , first trimester (ICD-10-CM: Z34.01,Date: 05/14/23) 05/14/23 - Encounter for supervision of normal first , first trimester (ICD-10-CM: Z34.01,Date: 05/14/23) 05/14/23 - Encounter for supervision of normal first , first trimester (ICD-10-CM: Z34.01,Date: 05/14/23) 05/14/23 - Encounter for supervision of normal first , first trimester (ICD-10-CM: Z34.01,Date: 05/14/23) 05/14/23 - Encounter for supervision of normal first , first trimester (ICD-10-CM: Z34.01,Date: 05/14/23) 05/14/23 - Encounter for supervision of normal first , first trimester (ICD-10-CM: Z34.01,Date: 05/14/23) 05/14/23 - Encounter for screening for infections with a predominantly sexual mode of transmission (ICD-10-CM: Z11.3, Date: ) 05/14/23 - Encounter for screening for infections with a predominantly sexual mode of transmission (ICD-10-CM: Z11.3, Date: 05/14/23) 05/14/23 - Encounter for supervision of normal first , first trimester (ICD-10-CM: Z34.01,Date: ) 05/14/23 - 10 weeks gestation of (ICD-10-CM: Z3A.10, Date: ) 05/14/23 - Encounter for supervision of normal first , first trimester (ICD-10-CM: Z34.01,Date: ) 05/14/23 - Encounter for supervision of normal first , first trimester (ICD-10-CM: Z34.01,Date: 05/14/23) 05/14/23 - Irregular menstruation, unspecified (ICD-10-CM: N92.6, Date: 05/14/23) 04/15/23 - Encounter for supervision of normal first , unspecified trimester (ICD-10-CM: Z34.00, Date: ) 04/15/23 - Weeks of gestation of not specified (ICD-10-CM: Z3A.00, Date: ) 04/15/23 - Encounter for supervision of normal , unspecified, unspecified trimester (ICD-10-CM: Z34.90, Date: 04/15/23) 09/28/99 - Encounter for supervision of normal first , second trimester (ICD-10-CM: Z34.02, Date: 09/03/23) 09/28/99 - Encounter for supervision of normal first , first trimester (ICD-10-CM: Z34.01,Date: 09/28/99) 09/28/99 - Encounter for screening for infections with a predominantly sexual mode of transmission (ICD-10-CM: Z11.3, Date: 09/28/99) SALLY VICTORIA : 04 Delivery Summary Baby A Membrane Status Information ROM Date/Time: 12/03/23 16:20:00 Amniotic Fluid Color/Description: Clear Labor Information Labor Onset Methods: Medical Induction Induction Methods: Misoprostol Precipitous Labor: No Prolonged Labor: No Monitoring FHR Monitoring Method: Doppler ultrasound Delivery Information Delivery Type: Vaginal Delivery of Head Date/Time: 12/03/23 19:45:00 Date/Time of : 12/03/23 19:45:00 Placenta Delivery Date/Time: 12/03/23 19:49:00 Placenta Delivery Method: Spontaneous Placenta to Pathology: Yes Cord Blood Sent to Lab: Yes Maternal Delivery Complications: None Delivery Physician: Dillon Connolly MD Information Risk Factors: None Complications: None Umbilical Cord Description: 3 vessel cord Data Gender: Female Outcome: Live Security Tag Number: [id number] Weight: 2.620 kg Score 1 Minute: 8 Score 5 Minute: 9 Fabrication Technician: Mor Silva MD Note: Items documented with '--' had no clinical data which qualified at time of report creation END OF REPORT Physician Outpatient Note * Pamela Hill APRN: PERFORM Event Display: Office Clinic Note Physician Authored Date: [id number] SALLY VICTORIA :2005 Age:18 years Sex:Female Visit Date:03/10/2024 Primary Care Physician: SIERRA GUAJARDO Chief Complaint nexplanon follow up feeling nauseous History of Present Illness Sally is here??in follow-up to having the etonogestrel implant placed on 01/14/24 at her 6 week PP visit. Overall she is happy with the implant. She is breast and supplementing??feedings with formula.She hasn't had any bleeding. Review of Systems GENERAL??Overall she feels well. 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 Physical Exam Vitals & Measurements BP:??100/64?? HT:??165.1??cm?? HT:??60.93??(Percentile)?? WT:??50??kg?? WT:??15.90??(Percentile)?? BMI:??18.34?? BMI:??8.86??(Percentile)?? BSA:??1.51?? GENERAL?Alert and oriented, well nourished, no acute distress Reasonable historian.?? EXTREMITIES?Grossly normal exam. Implant palpable in the left upper arm. Assessment/Plan 1.??Encounter for monitoring of etonogestrel implant??Z30.46 Overall she seems very happy with the implant. 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 The studies suggest an average of 5-7 episodes of bleeding in the 3 years, but the length of bleeding/spotting variesfrom days to weeks.??If she any??questions or concerns, to reach out.? Nurse states Sally hasn't had much to eat today, and encouraged proper nutrition and hydration as this could be why she is feeling nauseated. Follow Up Instructions prn Problem List/Past Medical History Ongoing Encounter for monitoring of etonogestrel implant Encounter for visit Rubella non-immune status, antepartum Historical Breech presentation Procedure/Surgical History ???Extraction of wisdom tooth (2021) Medications Nexplanon 68 mg subcutaneous implant Tylenol 325 mg oral capsule, 325 mg= [...] (M) and Grandmother (P). Electronically Signed on 03/10/2024 17:11 EDT Pamela Hill APRN Patient Care team information Care Team Personnel Name: SIERRA GUAJARDO Position: No Access Member Role: Primary Care Physician Address: Address: [address] [address]- Care Team Related Persons Name: FLORESITA VICTORIA Address: Home [address] [phone] [facility]
--- OUTSIDE RECORDS SUMMARY | 2024-05-26 17:15 | XMS_ITS | Continuity of Care Document ---
Author Organization [facility] Ambulatory Clinics Address [address] [place] [address] Care Team Providers Care Business Intelligence Administrator Name Role Phone SIERRA GUAJARDO Primary Care Physician [phone] Encounter [facility] NBR [id number] Date(s): 09/30/23 - 09/30/23 [facility] Ambulatory Clinics [address] [place] [address]- Encounter Diagnosis Encounter for care in third trimester of first (Discharge Diagnosis) - 09/30/23 Uterine size-date discrepancy, third trimester(Discharge Diagnosis) - 09/30/23 Discharge Disposition: Home or Self Care Attending Physician: Pamela Hill APRN Allergies, Adverse Reactions, Alerts No Known Allergies Assessment and Plan Future Appointments Appointment Date:10/06/2023 02:00:00 PM Scheduled Provider:Pamela Hill APRN Location:[facility] Appointment Type:OB Follow Up Future Scheduled Tests Radiology* US OB Follow Up 10/06/23 Medications C-Titus DHA oral capsule 1 cap, Oral, Daily, # 90 cap, 3 Refill(s), Pharmacy: [facility] #93 Start Date: 06/24/23 Status: Ordered Phenergan 12.5 mg oral tablet 12.5 mg = 1 tab, Oral, every 6 hr, PRN as needed for nausea/vomiting, # 30 tab, 1 Refill(s), Pharmacy: [facility] #[id number] Start Date: 04/15/23 Status: Ordered [...] Health St atus Informant Confirmed 04/15/23 Active Rubella non-immune status, antepartum Confirmed Active Encounter for care in third trimester of first Confirmed Active Uterine size-date discrepancy, third trimester Confirmed Active Procedures Procedure Date Related Diagnosis Body Site Status Extraction of wisdom tooth 1 2021 Completed 1X 4 Results Most recent to oldest [Reference Range]: 1 Protein Urine Dipstick Trace (09/30/23 2:48 PM) Glucose Urine Dipstick Negative (09/30/23 2:48 PM) Urine Color Urine Dipstick Yellow (09/30/23 2:48 PM) Urine Appearance Urine Dipstick Slightly cloudy (09/30/23 2:48 PM) Vital Signs Most recent to oldest [Reference Range]: 1 Blood Pressure [90-140/60-90 mmHg] 106/6 8mmHg (09/30/23 2:48 PM) Mean Arterial Pressure, Cuff [70-110 mmH g] 81 mmHg (09/30/23 2:48 PM) Weight 57.6 kg (09/30/23 2:48 PM) Weight Measured (lbs) 126.986 lb (09/30/23 2:48 PM) Weight Dosing 57.600 kg (09/30/23 2:48 PM) [place] Body Weight Calculated 57 kg (09/30/23 2:48 PM) Height 165.1 cm (09/30/23 2:48 PM) Height/Length Measured (inches) 65 inch (09/30/23 2:48 PM) BSA Measured 1.63 m2 (09/30/23 2:48 PM) Body Mass Index 21.13 kg/m2 (09/30/23 2:48 PM) Body Mass Index Percentile 44.60 1 (09/30/23 2:48 PM) Height/Length Percentile 61.20 2 (09/30/23 2:48 PM) Weight Percentile 51.05 3 (09/30/23 2:48 PM) 1Result Comment: ^~:!Percentile Source -CDC 2Result Comment: ^~:!Percentile Source -CDC 3Result Comment: ^~:!Percentile Source -CDC Social History Social History Type Response Smoking Status Smoking tobacco use: Never tobacco user;Never entered on: 06/11/23 Sex Female Physician Outpatient Note * Pamela J Liz, CUSTODIAN SUPERVISOR: PERFORM Event Display: Office Clinic Note Physician Authored Date: [id number] MIKEY VICTORIA [place] :2005 Age:18 years Sex:Female Visit Date:09/30/2023 Primary Care Physician: SIERRA GUAJARDO ANGELIQUE/EGA Gestational Age (EGA) and ANGELIQUE? * Note: EGA calculated as of 09/30/2023 ?? ANGELIQUE:??12/05/2023?EGA*:??30 weeks 4 days ?Type:??Authoritative?Method Date:??04/15/2023 ?Method:??Ultrasound??(04/15/2023) ?Confirmation:??Confirmed ?Description:??-- ?Comments:??-- [...] on 05/14/2023 Chief Complaint OB follow up ?Tdap / flu today History of Present Illness OB f/u Physical Exam Vitals & Measurements BP:??106/68?? HT:??61.20??(Percentile)?? HT:??165.1??cm?? WT:??51.05??(Percentile)?? WT:??57.6??kg?? BMI:??44.60??(Percentile)?? BMI:??21.13?? BSA:??1.63?? Risk Factors Risk Factors, Antepartum Current Preg: Other: rubella nonimmune (05/15/23) Assessment/Plan 1.??Encounter for care in third trimester of first ??Z34.03 Baby is active. No lof/bleeding/ctx. Considering Tdap, flu and RSV vaccines. VIS info provided. EncCBE classes. Ordered: OB Follow Up, 10/06/23, Routine, Reason: growth US, Transport Mode: Ambulatory, Encounter for care in third trimester of first Uterine size-date discrepancy, third trimester, ABN Status: Not Required ?? 2.??Uterine size-date discrepancy, third trimester??O26.843 Will set up US for growth/NI. Ordered: OB Follow Up, 10/06/23, Routine, Reason: growth US, Transport Mode: Ambulatory, Encounter for care in third trimester of first Uterine size-date discrepancy, third trimester, ABN Status: Not Required ?? Cards Exam and Notes ?? Exams and Notes ?? Date:??09/30/23 EGA:??30w4d Weight (lbs kg):??*127... Fundal Height (cm):??29 ? Blood Pressure (mmHg):??106/68 ? Cervix Exam (Dil cm/Eff %/Sta -):--/--/--?? Labor S/S:?? Urine Glucose:??Negative Urine Protein:??Trace Next Visit:??+2 weeks from 09/30/2023 Baby A?FHR:??145 ? Movement:??Present per patient ?Presentation:??-- ? Date:??09/17/23 EGA:??28w5d Weight (lbs kg):??*128... Fundal Height [...] trimester of first Rubella non-immune status, antepartum Uterine size-date discrepancy, third trimester Historical No qualifying data Procedure/Surgical History ???Extraction [...] Performed: 05/14/23 Rubella,Transcribed: Nonimmune Electronically Signed on 09/30/23 04:12 PM Pamela Hill APRN Patient Care team information Care Team Personnel Name: SIERRA GUAJARDO Position: No Access Member Role: Primary Care Physician Address: Address: [address] [address]- Care Team Related Persons Name: FLORESITA VICTORIA Address: Home [address] [facility] [address] [place] [phone] [facility] Name: FLORESITA VICTORIA Address: Home [address] [facility] [address] [place], [place] [phone] [facility]
--- OUTSIDE RECORDS SUMMARY | 2024-05-26 17:15 | XMS_ITS | Continuity of Care Document ---
Author Organization [facility] Ambulatory Clinics Address [address] [place] [address] Care Team Providers Care Cable Reeler Name Role Phone SIERRA GUAJARDO Primary Care Physician Encounter [facility] NBR [id number] Date(s): 07/10/23 - 07/10/23 [facility] Ambulatory Clinics [address] [place] [address]- Encounter Diagnosis Normal first in second trimester(Discharge Diagnosis) - 07/10/23 Rubella non-immune status, antepartum(Discharge Diagnosis) - 07/10/23 Other underimmunization status(Discharge Diagnosis) - 07/10/23 Discharge Disposition: Home or Self Care Attending Physician: Dillon Connolly MD Allergies, Adverse Reactions, Alerts No Known Allergies Assessment and Plan Future Scheduled Tests Radiology* US OB Limited 07/10/23 Medications C-Titus DHA oral capsule 1 cap, Oral, Daily, # 90 cap, 3 Refill(s), Pharmacy: [facility] #93 Start Date: 06/24/23 Status: Ordered Phenergan 12.5 mg oral tablet 12.5 mg = 1 tab, Oral, every 6 hr, PRN as needed for nausea/vomiting, # 30 tab, 1 Refill(s), Pharmacy: [facility] #93 Start Date: 04/15/23 Status: Ordered Tylenol [...] oldest [Reference Range]: 1 Protein Urine Dipstick Negative (07/10/23 11:37 AM) Glucose Urine Dipstick Negative (07/10/23 11:37 AM) Urine Color Urine Dipstick Yellow (07/10/23 11:37 AM) Urine Appearance Urine Dipstick Clear (07/10/23 11:37 AM) Vital Signs Most recent to oldest [Reference Range]: 1 2 Blood Pressure [90-140/60-90 mmHg] 108/5 4mmHg (07/10/23 11:37 AM) Weight 53.7 kg (07/10/23 11:37 AM) Weight Measured (lbs) 118.388 lb (07/10/23 11:37 AM) [place] Body Weight Calculated 57 kg (07/10/23 11:37 AM) Height 165.10 cm (07/10/23 11:37 AM) Height/Length Measured (inches) 65 inch (07/10/23 11:37 AM) BSA Measured 1.57 m2 (07/10/23 11:37 AM) Body Mass Index 19.7 kg/m2 (07/10/23 11:37 AM) 19.7 kg/m2 (07/10/23 11:37 AM) Body Mass Index Percentile 25.49 1 (07/10/23 11:37 AM) Height/Length Percentile 61.30 2 (07/10/23 11:37 AM) Weight Percentile 34.24 3 (07/10/23 11:37 AM) 1Result Comment: ^~:!Percentile Source -CDC 2Result Comment: ^~:!Percentile Source -CDC 3Result Comment: ^~:!Percentile Source -CDC Social History Social History Type Response Smoking Status Smoking tobacco use: Never tobacco user;Never entered on: 06/11/23 Sex Female Note * Alissa Das: PERFORM Event Display: OB Note Authored Date: [id number] Transcribed Labs Entered On: 07/07/2023 13:29 EDT Performed On: 07/07/2023 13:28 EDT by Alissa Das Transcribed Labs Blood Type, Transcribed : A positive Rubella,Transcribed : Nonimmune Rubella Date Performed : 05/14/2023 EDT Hepatitis B, Transcribed : Negative Hepatitis B Date Performed : 05/14/2023 EDT HIV Antibodies, Transcribed : Negative RPR, Transcribed : Negative RPR Date Performed : 05/14/2023 EDT Chlamydia Date Performed : 05/14/2023 EDT Gonorrhea Date Performed : 05/14/2023 EDT Chlamydia, Transcribed : Negative Gonorrhea, Transcribed : Negative ABS, Transcribed : Negative ABS Date Performed : 05/14/2023 EDT Other Transcribed Labs : urine culture done 06/11/2023 Genetic Testing Date Performed : 05/14/2023 EDT Genetic Testing, Transcribed : Yes Genetic Testing, Results Text : Inheritest: negative MaterniT 21: negative Alissa Das - 07/07/2023 13:28 EDT Electronically Signed on 07/07/2023 01:28 PM Alissa Das Physician Outpatient Note * Dillon Connolly MD: PERFORM Event Display: Office Clinic Note Physician Authored Date: [id number] MIKEY VICTORIA :2005 Age:17 years Sex:Female Visit Date:07/10/2023 Primary Care Physician: SIERRA GUAJARDO ANGELIQUE/EGA Gestational Age (EGA) and ANGELIQUE? * Note: EGA calculated as of 07/10/2023 ?? ANGELIQUE:??12/05/2023?EGA*:??18 weeks 6 days ?Type:??Authoritative?Method Date:??04/15/2023 ?Method:??Ultrasound??(04/15/2023) ?Confirmation:??Confirmed ?Description:??-- ?Comments:??-- ?Entered by:??Shashank Ling MD on 05/14/2023? Other ANGELIQUE Calculations for this : ?Method:??Ultrasound ?Method Date:??07/10/2023 ?ANGELIQUE:??12/07/2023 ?EGA (At Entry):??18 weeks 4 days ?Type:??Non-Authoritative ?Comments:??-- ?Entered by:??Dillon Connolly MD on 07/10/2023 ?Method:??Ultrasound ?Method Date:??05/14/2023 ?ANGELIQUE:??12/02/2023 ?EGA (At Entry):??11 weeks 1 days ?Type:??Non-Authoritative ?Comments:??BSUS transabd ?Entered by:??Shashank Ling MD on 05/14/2023 Chief Complaint OB follow appointment, 18.6 weeks, no concerns Physical Exam Vitals & Measurements BP:??108/54?? HT:??165.10??cm?? HT:??61.30??(Percentile)?? WT:??53.7??kg?? WT:??34.24??(Percentile)?? BMI:??19.7?? BMI:??19.7?? BMI:??25.49??(Percentile)?? BSA:??1.57?? Risk Factors Risk Factors, Antepartum Current Preg: Other: rubella nonimmune (05/15/23) Assessment/Plan 1.??Normal first in second trimester??Z34.02 Ordered: US OB Greater Than 14 Weeks, 07/10/23 10:00:00 EDT, Routine, Reason: anatomy, Consulting Dr: Dillon Connolly P, Transport Mode: Ambulatory, Normal first in second trimester, ABN Status: Not Required US OB Limited, 07/10/23, Routine, Reason: Follow-up spine, kidneys, ACL to complete anatomic survey, Transport Mode: Ambulatory, Normal first in second trimester ?? 2.??Rubella non-immune status, antepartum??O09.899 ?? Other underimmunization status??Z28.39 ?? Pt doing well. ??She has a good appetite and is taking vitamins. ??Occasional round ligament pains, no bleeding or dysuria. ??Second Trimester US today, she is having a girl.?? Needs a Follow-up??Ultrasound to complete anatomical survey. Cards Exam and Notes ?? Exams and Notes ?? Date:??07/10/23 EGA:??18w6d Weight (lbs kg):??*118... Fundal Height [...] Next Visit:? Problem List/Past Medical History Ongoing Normal first in second trimester Rubella non-immune status, antepartum Historical No qualifying [...] Performed: 05/14/23 Rubella,Transcribed: Nonimmune Electronically Signed on 07/10/23 12:06 PM Dillon Connolly MD Patient Care team information Care Team Personnel Name: SIERRA GUAJARDO Position: No Access Member Role: Primary Care Physician Address: Address: [id number] [place] [address] Care Team Related Persons Name: FLORESITA VICTORIA Address: Home [address] [place] [address] [address] [place] [phone] [facility] Name: FLORESITA VICTORIA Address: Home [address] [place], [place] [phone] [facility]
--- OUTSIDE RECORDS SUMMARY | 2024-05-26 17:15 | XMS_ITS | Continuity of Care Document ---
Author Organization [facility] Ambulatory Clinics Address [address] [place] [address] Care Team Providers Care Body Cleaner Name Role Phone SIERRA GUAJARDO Primary Care Physician Encounter [facility] NBR [id number] Date(s): 12/01/23 - 12/01/23 [facility] Ambulatory Clinics [address] [place] [address]- Encounter Diagnosis Encounter for care in third trimester of first (Discharge Diagnosis) - 12/01/23 Encounter for supervision of normal first , third trimester(Final) - 39 weeks gestation of (Final) - Discharge Disposition: Home or Self Care Attending Physician: Javier Nance MD Allergies, Adverse Reactions, Alerts No Known Allergies Assessment and Plan Extracted from: Title:OB Extended Office Visit Author:Javier redman MD Date:12/01/23 1.??Encounter for c are in third trimester of first ??Z34.03 Complains of continued nausea and vomiting. This has been a problem for approximately two days and reports that it is worse at night when laying down. She is scheduled for US this week to evaluate S<D I feel that based on symptoms reflux is contributory. Rx for Protonix provided. Will follow up once US is done and has appointment immediately thereafter ? Orders: Protonix 40 mg oral delayed release tablet, 40 mg = 1 tab, Oral, Daily, # 30 tab, 1 Refill(s), Pharmacy: [facility] #93, 165.1, cm, 11/18/23 15:24:00 EST, Height, 60.5, kg, 12/01/23 15:42:00 EST, Weight Dosing Future Appointments Appointment Date:12/03/2023 08:00:00 AM Scheduled Provider:Javier Nance MD Location:[facility] Appointment Type:OB Follow Up Appointment Date:12/07/2023 02:30:00 PM Scheduled Provider:Dillon Connolly MD Location:[facility] Appointment Type:OB Follow Up Future Scheduled Tests Radiology* US OB Follow Up 12/03/23 Medications C-Titus DHA oral capsule 1 cap, Oral, Daily, # 90 cap, 3 Refill(s), Pharmacy: [facility] #93 Start Date: 06/24/23 Status: Ordered NIFEdipine 10 mg oral capsule 10 mg = 1 cap, Oral, every 6 hr, 0 Refill(s) Start Date: 10/31/23 Status: Ordered Phenergan 12.5 mg oral tablet 12.5 mg = 1 tab, Oral, every 6 hr, PRN as needed for nausea/vomiting, # 30 tab, 1 Refill(s), Pharmacy: [facility] #93 Start Date: 04/15/23 Status: Ordered Protonix 40 mg oral delayed release tablet 40 mg = 1 tab, Oral, Daily, # 30 tab, 1 Refill(s), Pharmacy: [facility] #93, 165.1, cm, 11/18/23 15:24:00 EST, Height, [...] [Reference Range]: 1 Protein Urine Dipstick Trace (12/01/23 3:27 PM) Glucose Urine Dipstick Negative (12/01/23 3:27 PM) Urine Color Urine Dipstick Dark yellow (12/01/23 3:27 PM) Urine Appearance Urine Dipstick Cloudy (12/01/23 3:27 PM) Vital Signs Most recent to oldest [Reference Range]: 1 Blood Pressure [90-140/60-90 mmHg] 90/70 mmHg (12/01/23 3:27 PM) Mean Arterial Pressure, Cuff [65-140 mmH g] 77 mmHg (12/01/23 3:27 PM) Weight 60.5 kg (12/01/23 3: PM) Weight Measured (lbs) 133.38 lb (12/01/23 3:27 PM) Weight Dosing 60.500 kg (12/01/23 3:27 PM) Weight Percentile 61.56 1 (12/01/23 3:27 PM) 1Result Comment: ^~:!Percentile Source -[facility] Social History Social History Type Response Smoking Status Smoking tobacco use: Never tobacco user;Never entered on: 06/11/23 Sex Female Physician Outpatient Note * Javier Nance MD: PERFORM Event Display: Office Clinic Note Physician Authored Date: [id number] MIKEY VICTORIA :2005 Age:18 years Sex:Female Visit Date:12/01/2023 Primary Care Physician: SIERRA GUAJARDO Chief Complaint OB FU 39wks, 3d. Nauseous, comes close to vomiting. Not able to eat or keep food down. Able to keepfluids down. Denies any fevers, chills, wasast week. Unable to smell or taste. Baby moving. Denies and leaking, bleeding. Some lower cramping down low. Visit Vital Signs/Measurements Systolic Blood Hkpfgmly39 mmHg Diastolic Blood Utylhodh48 mmHg Xfeffc06.5 kg Urine POC Protein Urine DipstickTrace Glucose Urine DipstickNegative Physical Exam Vitals & Measurements BP:??90/70?? WT:??60.5??kg?? WT:??61.56??(Percentile)?? Assessment/Plan 1.??Encounter for care in third trimester of first ??Z34.03 Complains of continued nausea and vomiting. This has been a problem for approximately two days and reports that it is worse at night when laying down. She is scheduled for US this week to evaluate S<D I feel that based on symptoms reflux is contributory. Rx for Protonix provided. Will follow up onceUS is done and has appointment immediately thereafter ? Orders: Protonix 40 mg oral delayed release tablet, 40 mg = 1 tab, Oral, Daily, # 30 tab, 1 Refill(s), Pharmacy: [facility], 165.1, cm, 11/18/23 15:24:00 EST, Height, 60.5, kg, 12/01/23 15:42:00 EST, Weight Dosing LMP/EGA/ANGLEIQUE No qualifying data available. Gestational Age (EGA) and ANGELIQUE? * Note: EGA calculated as of 12/01/2023 ?? ANGELIQUE:??12/05/2023?EGA*:??39 weeks 3 days ?Type:??Authoritative?Method Date:??04/15/2023 ?Method:??Ultrasound??(04/15/2023) ?Confirmation:??Confirmed [...] Hill APRN on 09/16/2023 ?Method:??Ultrasound ?Method Date:??07/10/2023 ?ANGLEIQUE:??12/07/2023 ?EGA (At Entry):??18 weeks 4 days ?Type:??Non-Authoritative [...] Negative:?? Defect, Cystic Fibrosis, Down Syndrome, Hemophilia, Mccloud's Chorea, Mental Retardation, Muscular Dystrophy, Neural Tube, [...] Oral, every 6 hr, PRN, 1 refills Protonix 40 mg oral delayed release tablet, 40 mg= 1 tab, Oral, Daily, 1 refills Tylenol 325 mg oral capsule, [...] Performed: 05/14/23 Rubella,Transcribed: Nonimmune Electronically Signed on 12/01/23 10:06 PM Javier Nance MD Patient Care team information Care Team Personnel Name: SIERRA GUAJARDO Position: No Access Member Role: Primary Care Physician Address: Address: [address] [address]- Care Team Related Persons Name: JULIEN FLORESITA Address: Home [address] [phone] [facility]
--- OUTSIDE RECORDS SUMMARY | 2024-05-26 17:15 | XMS_ITS | Continuity of Care Document ---
Author Organization [facility] Ambulatory Clinics Address [address] [place] [address] Care Team Providers Care Ehr Trainer Name Role Phone SIERRA GUAJARDO Primary Care Physician Encounter [facility] NBR [id number] Date(s): 12/03/23 - 12/03/23 [facility] Ambulatory Clinics [address] [place] [address]- Encounter Diagnosis Encounter for care in third trimester of first (Discharge Diagnosis) - 12/03/23 Discharge Disposition: Home or Self Care Attending Physician: Javier Nance MD Allergies, Adverse Reactions, Alerts No Known Allergies Assessment and Plan Extracted from: Title:OB Extended Office Visit Author:Javier redman MD Date:12/03/23 1.??Encounter for c are in third trimester of first ??Z34.03 Nausea is improved. US today shows growth at 2% and NI of 4. Discussed with patient and her mother. Recommend IOL at this point. Patient referred to Labor and delivery. ? Ordered: US OB Follow Up, 12/03/23 7:00:00 EST, Routine, Reason: Growth S<D, Consulting Dr: Javier Nance MD, Transport Mode: Ambulatory, Encounter for care in third trimester of first , ABN Status: Not Required ?? Future Appointments Medications C-Titus DHA oral capsule 1 cap, Oral, Daily, # 90 cap, 3 Refill(s), Pharmacy: [facility] Start Date: 06/24/23 Status: Ordered NIFEdipine 10 mg oral capsule 10 mg = 1 cap, Oral, every 6 hr, 0 Refill(s) Start Date: 10/31/23 Status: Ordered Phenergan 12.5 mg oral tablet 12.5 mg = 1 tab, Oral, every 6 hr, PRN as needed for nausea/vomiting, # 30 tab, 1 Refill(s), Pharmacy: [facility] Start Date: 04/15/23 Status: Ordered Protonix 40 mg oral delayed release tablet 40 mg = 1 tab, Oral, Daily, # 30 tab, 1 Refill(s), Pharmacy: [facility] #[facility], 165.1, cm, 11/18/23 15:24:00 EST, Height, [...] of wisdom tooth 2021 Completed 1X 4 Vital Signs Most recent to oldest [Reference Range]: 1 Blood Pressure [90-140/60-90 mmHg] 94/60 mmHg (12/03/23 8:06 AM) Mean Arterial Pressure, Cuff [65-140 mmH g] 71 mmHg (12/03/23 8:06 AM) Weight 60.4 kg (12/03/23 8:06 AM) Weight Measured (lbs) 133.159 lb (12/03/23 8:06 AM) Weight Dosing 60.400 kg (12/03/23 8:06 AM) Weight Percentile 61.21 1 (12/03/23 8:06 AM) 1Result Comment: ^~:!Percentile Source -[facility] Social History Social History Type Response Smoking Status Smoking tobacco use: Never tobacco user;Never entered on: 06/11/23 Sex Female Physician Outpatient Note * Javier Nance MD: PERFORM Event Display: Office Clinic Note Physician Authored Date: [id number] MIKEY VICTORIA :2005 Age:18 years Sex:Female Visit Date:12/03/2023 Primary Care Physician: SIERRA GUAJARDO Chief Complaint OB FU 39wks, 5d. GBS negative 10/30. Feeling better, but a little nauseous today. Unable to leave [place] today. Visit Vital Signs/Measurements Systolic Blood Scpsgedn68 mmHg Diastolic Blood Ppooajdt51 mmHg Tygczt22.4 kg Physical Exam Vitals & Measurements BP:??94/60?? WT:??61.21??(Percentile)?? WT:??60.4??kg?? Assessment/Plan 1.??Encounter for care in third trimester of first ??Z34.03 Nausea is improved. US today shows growth at 2% and NI of 4. Discussed with patient and her mother. Recommend IOL at this point. Patient referred to Labor and delivery. ? Ordered: OB Follow Up, 12/03/23 7:00:00 EST, Routine, Reason: Growth S<D, Consulting Dr: Javier Nance MD, Transport Mode: Ambulatory, Encounter for care in third trimester of first , ABN Status: Not Required ?? LMP/EGA/ANGELIQUE No qualifying data available. Gestational Age (EGA) and ANGELIQUE? * Note: EGA calculated as of 12/03/2023 ?? ANGELIQUE:??12/05/2023?EGA*:??39 weeks 5 days ?Type:??Authoritative?Method Date:??04/15/2023 ?Method:??Ultrasound??(04/15/2023) ?Confirmation:??Confirmed [...] Performed: 05/14/23 Rubella,Transcribed: Nonimmune Electronically Signed on 12/03/23 08:40 AM Javier Nance MD Patient Care team information Care Team Personnel Name: SIERRA GUAJARDO Position: No Access Member Role: Primary Care Physician Address: Address: [address] Care Team Related Persons Name: JULIEN, FEMALE Address: Home [address] [facility] [phone] Name: JULIENFLORESITA Address: Home [address] [place], [place] [phone] [facility]
--- OUTSIDE RECORDS SUMMARY | 2024-05-26 17:15 | XMS_ITS | Continuity of Care Document ---
Author Organization [facility] Address [address] [place] [address] Care Team Providers Care Lot Porter Name Role Phone SIERRA GUAJARDO Primary Care Physician [phone] Encounter [facility] NBR [id number] Date(s): 10/06/23 - 10/06/[address] [address] [place] Encounter Diagnosis Uterine size-date discrepancy, third trimester(Final) - Discharge Disposition: Home or Self Care Attending Physician: Pamela Hill APRN Admitting Physician: Pamela Hill APRN Referring Physician: Pamela Hill APRN Allergies, Adverse Reactions, Alerts No Known Allergies Assessment and Plan Future Appointments Appointment Date:10/21/2023 02:30:00 PM Scheduled Provider:Javier Nance MD Location:[facility] Appointment Type:OB Follow Up Medications C-Titus DHA oral capsule 1 cap, Oral, Daily, # 90 cap, 3 Refill(s), Pharmacy: [facility] #[facility] Start Date: 06/24/23 Status: Ordered Phenergan 12.5 mg oral tablet 12.5 mg = 1 tab, Oral, every 6 hr, PRN as needed for nausea/vomiting, # 30 tab, 1 Refill(s), Pharmacy: [facility] Start Date: 04/15/23 Status: Ordered [...] Exam Date Time Procedure Performing Provider Status 10/06/23 1:48 PM US OB Follow Up DomainUser, Generated; Auth (Verified) Notes: (US OB Follow Up) Reason For Exam: growth US US OB Follow Up EXAM DESCRIPTION: US OB Follow Up 10/06/2023 INDICATION: GROWTH US TECHNIQUE: Grayscale obstetric ultrasound COMPARISON: 07/10/2023 FINDINGS: Single live intrauterine gestation in cephalic position with average ultrasound age of 31 weeks 1 day for an ultrasound ANGELIQUE of 12/07/2023. Appropriate interval growth. BPD: 29 weeks 4 days Head circumference: 31 weeks 4 days Abdominal circumference: 32 weeks 2 days Femur length: 31 weeks 0 days heart rate was 144 beats per minute NI is 8.7 cm. Estimated weight is 1776 g which is the 40th percentile by LMP. IMPRESSION: Single live intrauterine gestation in cephalic position with average ultrasound age of 31 weeks 1 day for an ultrasound ANGELIQUE of 12/07/2023. Appropriate interval growth. JOB #: [id number] Final Signed by: Javier Allan MD Signed (Electronic Signature): 10/06/2023 3:13 pm Social History Social History Type Response Smoking Status Smoking tobacco use: Never tobacco user;Never entered on: 06/11/23 Sex Female Patient Care team information Care Team Personnel Name: SIERRA GUAJARDO Position: No Access Member Role: Primary Care Physician Address: Address: [address] [address] [place] Care Team Related Persons Name: FLORESITA VICTORIA Address: Home [address] [place], [place] [phone] [facility] Name: FLORESITA VICTORIA Address: Home [address] [place], [place] [phone] [facility]
--- OUTSIDE RECORDS SUMMARY | 2024-05-26 17:15 | XMS_ITS | Continuity of Care Document ---
Author Organization [facility] Address [address] [place] [address] Care Team Providers Care Truckload Owner Operator Name Role Phone SIERRA GUAJARDO Primary Care Physician Encounter [facility] NBR [id number] Date(s): 05/14/23 - 05/14/23 [facility] [address] [place], [place] [address] Encounter Diagnosis Routine screening for STI (sexually transmitted infection)(Discharge Diagnosis) - 05/14/23 Encounter for screening for infections with a predominantly sexual mode of transmission(Final) - Discharge Disposition: Home or Self Care Attending Physician: Shashank Ling MD Admitting Physician: Shashank Ling MD Allergies, Adverse Reactions, Alerts No Known Allergies Assessment and Plan Future Appointments Appointment Date:06/11/2023 09:45:00 AM Scheduled Provider:Dillon Connolly Location:[facility] Appointment Type:OB Follow Up Medications multivitamin adult, oral tablet 1 tab, Oral, Daily, # 30 tab, 0 Refill(s) Start Date: 04/15/23 Status: Ordered Phenergan 12.5 mg oral tablet 12.5 mg = 1 tab, Oral, every 6 hr, PRN as needed for nausea/vomiting, # 30 tab, 1 Refill(s), Pharmacy: [facility] Start Date: 04/15/23 Status: Ordered DHA 200 mg oral capsule 200 mg = 1 cap, Oral, Daily, # 90 cap, 4 Refill(s), Pharmacy: [email or web address] Start Date: 04/15/23 Status: Ordered Multivitamins 0 Refill(s) Start Date: 05/14/23 Status: Ordered Tylenol 325 mg oral capsule 325 mg = 1 cap, Oral, every 4 hr, PRN as needed for pain, # 20 cap, 0 Refill(s) Start Date: 04/15/23 Status: Ordered Problem List Condition Confirmation Course Effective Dates Status Health St atus Informant Confirmed 04/15/23 Active Results Laboratory List Name Date Chlamydia trachomatis and Neisseria gono rrhoeae (GeneXpert) 05/14/23 Most recent to oldest [Reference Range]: 1 Chlamydia trachomatis DNA -GeneXpert [No t Detected] Not Detected (05/14/23 10:20 AM) Neisseria gonorrhoeae DNA -GeneXpert [No t Detected] Not Detected (05/14/23 10:20 AM) Social History Social History Type Response Tobacco Never tobacco user T obacco Use:. Sex Female Patient Care team information Care Team Personnel Name: SIERRA GUAJARDO Position: No Access Member Role: Primary Care Physician Address: Address: [address] Care Team Related Persons Name: FLORESITA VICTORIA Address: Home [address] [place] [phone] [facility] Name: FLORESITA VICTORIA Address: Home [address] [place], [place] [phone] [place]
--- OUTSIDE RECORDS SUMMARY | 2024-05-26 17:15 | XMS_ITS | Continuity of Care Document ---
Author Organization [facility] Ambulatory Clinics Address [address] [place] [address] Care Team Providers Care Supervisor Housecleaner Name Role Phone CASANDRA SIERRA Primary Care Physician Encounter [facility] NBR [id number] Date(s): 09/03/23 - 09/03/23 [facility] Ambulatory Clinics [address] [place], [place] [address] Discharge Disposition: Home or Self Care Attending Physician: Javier Nance MD Allergies, Adverse Reactions, Alerts No Known Allergies Assessment and Plan Future Appointments Appointment Date:09/17/2023 02:00:00 PM Scheduled Provider:Pamela Hill APRN Location:[facility] Appointment Type:OB Follow Up Medications C-Titus DHA oral capsule 1 cap, Oral, Daily, # 90 cap, 3 Refill(s), Pharmacy: [facility] #[facility] Start Date: 06/24/23 Status: Ordered Phenergan 12.5 mg oral tablet 12.5 mg = 1 tab, Oral, every 6 hr, PRN as needed for nausea/vomiting, # 30 tab, 1 Refill(s), Pharmacy: [facility] #[facility] Start Date: 04/15/23 Status: Ordered [...] [Reference Range]: 1 Blood Pressure [90-140/60-90 mmHg] 92/50 mmHg (09/03/23 1:41 PM) Mean Arterial Pressure, Cuff [70-110 mmH g] 64 mmHg *LOW* (09/03/23 1:41 PM) Weight 58.3 kg (09/03/23 1:41 PM) Weight Measured (lbs) 128.529 lb (09/03/23 1:41 PM) Weight Dosing 58.300 kg (09/03/23 1:41 PM) Weight Percentile 54.35 1 (09/03/23 1:41 PM) 1Result Comment: ^~:!Percentile Source -[facility] Social History Social History Type Response Smoking Status Smoking tobacco use: Never tobacco user;Never entered on: 06/11/23 Sex Female Patient Care team information Care Team Personnel Name: SIERRA GUAJARDO Position: No Access Member Role: Primary Care Physician Address: Address: [id number] [place] [address] Care Team Related Persons Name: FLORESITA VICTORIA Address: Home [address] [place], [place] [phone] [facility] Name: FLORESITA VICTORIA Address: Home [address] [place], [place] [phone] [facility]
--- OUTSIDE RECORDS SUMMARY | 2024-05-26 17:15 | XMS_ITS | Continuity of Care Document ---
Author Organization [facility] Address [address] [place] [address] Care Team Providers Care Terminologist Name Role Phone SIERRA GUAJARDO Primary Care Physician Encounter [facility] NBR [id number] Date(s): 05/14/23 - 05/14/23 [facility] [address] [place] [address] [place] Encounter Diagnosis Encounter for supervision of normal first , first trimester(Final) - Discharge Disposition: Home or Self Care Attending Physician: Shashank Ling MD Admitting Physician: Shashank Ling MD Allergies, Adverse Reactions, Alerts No Known Allergies Assessment and Plan Future Appointments Appointment Date:06/11/2023 09:45:00 AM Scheduled Provider:Dillon Connolly Location:[facility] Appointment Type:OB Follow Up Diagnostic Tests Pending * HIV Ag/Ab Combo 1/2 05/14/23 * Hepatitis B Surface Antigen 05/14/23 * Syphilis Abs Qual 05/14/23 * Rubella IgG 05/14/23 * MaterniT 21 PLUS w/ESS and SCA Ref 05/14/23 * Inheritest Core Panel Ref 05/14/23 Medications multivitamin adult, oral tablet 1 tab, Oral, Daily, # 30 tab, 0 Refill(s) Start Date: 04/15/23 Status: Ordered Phenergan 12.5 mg oral tablet 12.5 mg = 1 tab, Oral, every 6 hr, PRN as needed for nausea/vomiting, # 30 tab, 1 Refill(s), Pharmacy: [facility] #[facility] Start Date: 04/15/23 Status: Ordered DHA 200 mg oral capsule 200 mg = 1 cap, Oral, Daily, # 90 cap, 4 Refill(s), Pharmacy: [facility] #93 Start Date: 04/15/23 Status: Ordered Multivitamins 0 Refill(s) Start Date: 05/14/23 Status: Ordered Tylenol 325 mg oral capsule 325 mg = 1 cap, Oral, every 4 hr, PRN as needed for pain, # 20 cap, 0 Refill(s) Start Date: 04/15/23 Status: Ordered Problem List Condition Confirmation Course Effective Dates Status Health St atus Informant Confirmed 04/15/23 Active Results Laboratory List Name Date ABO/Rh Echo 05/14/23 ABSC Echo (Antibody Screen Echo) 05/14/23 Automated Diff 05/14/23 CBC w/ Diff 05/14/23 Most recent to oldest [Reference Range]: 1 WBC [4.8-10.8 K/mcL] 7.5 K/mcL (05/14/23 10:51 AM) RBC [4.20-5.40 Million/mcL] 4.07 Million /mcL *LOW* (05/14/23 10:51 AM) Neutro Auto [42.2-75.2 %] 73.5 % (05/14/23 10:51 AM) Lymph Auto [20.5-51.1 %] 20.4 % *LOW* (05/14/23 10:51 AM) Tift Auto [1.7-9.3 %] 4.4 % (05/14/23 10:51 AM) Basophil Auto [0.0-0.8 %] 0.5 % (05/14/23 10:51 AM) Baso Absolute [0.0-0.2 K/mcL] 0.0 K/mcL (05/14/23 10:51 AM) MCV [81.0-99.0 fL] 88.9 fL (05/14/23 10:51 AM) MCHC [32.0-36.0 g/dL] 34.3 g/dL (05/14/23 10:51 AM) Lymph Absolute [1.2-3.4 K/mcL] 1.5 K/mcL (05/14/23 10:51 AM) Hct [37.0-47.0 %] 36.2 % *LOW* (05/14/23 10:51 AM) Tift Absolute [0.1-0.6 K/mcL] 0.3 K/mcL (05/14/23 10:51 AM) MCH [27.0-31.0 pg] 30.5 pg (05/14/23 10:51 AM) Neutro Absolute [1.4-6.5 K/mcL] 5.5 K/mc L (05/14/23 10:51 AM) Hgb [12.0-16.0 g/dL] 12.4 g/dL (05/14/23 10:51 AM) MPV [7.4-10.4 fL] 11.1 fL *HI* (05/14/23 10:51 AM) Platelets [130-400 K/mcL] 215 K/mcL (05/14/23 10:51 AM) Eos Absolute [0.0-0.2 K/mcL] 0.1 K/mcL (05/14/23 10:51 AM) RDW-CV [11.5-14.5 %] 12.1 % (05/14/23 10:51 AM) Imm Gran Absolute 0.02 *NA* (05/14/23 10:51 AM) Imm Gran Auto [0.0-0.5 %] 0.3 % (05/14/23 10:51 AM) Slide Review Not Indicated (05/14/23 10:51 AM) ABO/Rh Echo A POS *Unknown* (05/14/23 10:55 AM) Eos, Auto [0.00-3.00 %] 0.90 % (05/14/23 10:51 AM) ABSC Echo Negative ABSC (05/14/23 10:55 AM) Social History Social History Type Response Tobacco Never tobacco user T obacco Use:. Sex Female Patient Care team information Care Team Personnel Name: SIERRA GUAJARDO Position: No Access Member Role: Primary Care Physician Address: Address: [address] [address] Care Team Related Persons Name: FLORESITA VICTORIA Address: Home [address] [place], [place] [phone] [facility] Name: FLORESITA VICTORIA Address: Home [address] [place], [place] [phone] [facility]
--- OUTSIDE RECORDS SUMMARY | 2024-05-26 17:15 | XMS_ITS | Continuity of Care Document ---
Author Organization [facility] Ambulatory Clinics Address [address] [place] [address] Care Team Providers Care Geropsychologist Name Role Phone SIERRA GUAJARDO Primary Care Physician Encounter [facility] NBR [id number] Date(s): 11/02/23 - 11/02/23 [facility] Ambulatory Clinics [address] [place], [place] [address] Discharge Disposition: Home Allergies, Adverse Reactions, Alerts No Known Allergies Assessment and Plan Future Appointments Appointment Date:11/04/2023 02:45:00 PM Scheduled Provider:Javier Nance MD Location:[facility] Appointment Type:OB Follow Up Medications C-Titus DHA oral capsule 1 cap, Oral, Daily, # 90 cap, 3 Refill(s), Pharmacy: [facility] Start Date: 06/24/23 Status: Ordered NIFEdipine 10 mg oral capsule 10 mg = 1 cap, Oral, every 6 hr, 0 Refill(s) Start Date: 10/31/23 Status: Ordered Phenergan 12.5 mg oral tablet 12.5 mg = 1 tab, Oral, every 6 hr, PRN as needed for nausea/vomiting, # 30 tab, 1 Refill(s), Pharmacy: [facility] Start Date: 04/15/23 Status: Ordered Tylenol [...] Effective Dates Status Health St atus Informant Breech presentation Confirmed Active Confirmed 04/15/23 Active labor Confirmed [...] Member Role: Primary Care Physician Address: Address: [address] Care Team Related Persons Name: FLORESITA VICTORIA Address: Home [address] [place], [place] [phone] [facility] Name: FLORESITA VICTORIA Address: Home [address] [place], [place] [phone] [facility]
--- OUTSIDE RECORDS SUMMARY | 2024-05-26 17:15 | XMS_ITS | Continuity of Care Document ---
Author Organization [facility] Ambulatory Clinics Address [address] [place] [address] Care Team Providers Care Contact Center Director Name Role Phone CASANDRA SIERRA Primary Care Physician Encounter [facility] NBR [id number] Date(s): 11/04/23 - 11/04/23 [facility] Ambulatory Clinics [address] [place], [place] [address] Encounter Diagnosis Encounter for care in third trimester of first (Discharge Diagnosis) - 11/04/23 Discharge Disposition: Home or Self Care Attending Physician: Javier Nance MD Allergies, Adverse Reactions, Alerts No Known Allergies Assessment and Plan Extracted from: Title:OB Office Visit Note Author:Sherri Rashid Date:11/04/23 1.??Encounter for c are in third trimester of first ??Z34.03 Some round ligament pain. Had irregular contractions. Breech presentation noted previously. Vertex on today's exam. Follow up 1 week. ? Future Appointments Appointment Date:11/09/2023 03:30:00 PM Scheduled Provider:Pamela Hill APRN Location:[facility] Appointment Type:OB Follow Up Appointment Date:11/18/2023 03:30:00 PM Scheduled Provider:Shashank Ling MD Location:[facility] Appointment Type:OB Follow Up Appointment Date:11/24/2023 01:30:00 PM Scheduled Provider:Javier Nance MD Location:[facility] Appointment Type:OB Follow Up Appointment Date:12/03/2023 02:00:00 PM Scheduled Provider:Dillon Connolly MD Location:[facility] Appointment Type:OB Follow Up Appointment Date:12/07/2023 02:30:00 PM Scheduled Provider:Dillon Connolly MD Location:[facility] Appointment Type:OB Follow Up Medications C-Titus DHA oral capsule 1 cap, Oral, Daily, # 90 cap, 3 Refill(s), Pharmacy: [facility] #[facility] Start Date: 06/24/23 Status: Ordered NIFEdipine 10 mg oral capsule 10 mg = 1 cap, Oral, every 6 hr, 0 Refill(s) Start Date: 10/31/23 Status: Ordered Phenergan 12.5 mg oral tablet 12.5 mg = 1 tab, Oral, every 6 hr, PRN as needed for nausea/vomiting, # 30 tab, 1 Refill(s), Pharmacy: [facility] #[facility] Start Date: 04/15/23 Status: Ordered Tylenol [...] [Reference Range]: 1 Protein Urine Dipstick Trace (11/04/23 2:44 PM) Glucose Urine Dipstick Negative (11/04/23 2:44 PM) Urine Color Urine Dipstick Dark yellow (11/04/23 2:44 PM) Urine Appearance Urine Dipstick Slightly cloudy (11/04/23 2:44 PM) Vital Signs Most recent to oldest [Reference Range]: 1 Blood Pressure [90-140/60-90 mmHg] 100/6 4mmHg (11/04/23 2:44 PM) Mean Arterial Pressure, Cuff [70-110 mmH g] 76 mmHg (11/04/23 2:44 PM) Weight 61.8 kg (11/04/23 2:44 PM) Weight Measured (lbs) 136.246 lb (11/04/23 2:44 PM) Weight Dosing 61.800 kg (11/04/23 2:44 PM) Weight Percentile 65.96 1 (11/04/23 2:44 PM) 1Result Comment: ^~:!Percentile Source -[facility] Social History Social History Type Response Smoking Status Smoking tobacco use: Never tobacco user;Never entered on: 06/11/23 Sex Female Physician Outpatient Note * Javier Nance MD: PERFORM Event Display: Office Clinic Note Physician Authored Date: [id number] JULIENMIKEY Black ADOLPH :2005 Age:18 years Sex:Female Visit Date:11/04/2023 Primary Care Physician: SIERRA GUAJARDO ANGELIQUE/EGA Gestational Age (EGA) and ANGELIQUE? * Note: EGA calculated as of 11/04/2023 ?? ANGELIQUE:??12/05/2023?EGA*:??35 weeks 4 days ?Type:??Authoritative?Method Date:??04/15/2023 ?Method:??Ultrasound??(04/15/2023) ?Confirmation:??Confirmed [...] Ling MD on 05/14/2023 Chief Complaint OB FU 35wks, 4d. No questions. Sharp pains, both sides of abdomen. Baby moving a lot. Here Ej for contractions, denies any ctx since leaving the hospital. Was instructed needs a at 38/39wks. Tdap? Physical Exam Vitals & Measurements BP:??100/64?? WT:??65.96??(Percentile)?? WT:??61.8??kg?? Risk Factors Risk Factors, Antepartum Current Preg: Other: 10/06/2023 growth US NI 8.7cm, 1776 grams, 40th percentile (10/06/23) Risk Factors, Antepartum Current Preg: Other: rubella nonimmune (05/15/23) Assessment/Plan 1.??Encounter for care in third trimester of first ??Z34.03 Some round ligament pain. Had irregular contractions. Breech presentation noted previously. Vertex on today's exam. Follow up 1 week. Cards Exam and Notes ?? Exams and Notes ?? Date:??11/04/23 EGA:??35w4d Weight (lbs kg):??*136... Fundal Height (cm):??-- ? Blood Pressure (mmHg):??100/64 ? Cervix Exam (Dil cm/Eff %/Sta -):--/--/--?? Labor S/S:?? Urine Glucose:??Negative Urine Protein:??Trace Next Visit:? Date:??10/31/23 EGA:??35w0d Weight (lbs kg):??*130... Fundal Height (cm):??-- ? Blood Pressure (mmHg):??111/61 ? Cervix Exam (Dil cm/Eff %/Sta -):1/80%/-2?? Labor S/S:?? Urine Glucose:?? Urine Protein:?? Next Visit:?? Baby A?FHR:??145 ? Movement:??Present per patient ?Presentation:??-- ? Date:??10/21/23 EGA:??33w4d Weight (lbs kg):??*130... Fundal Height (cm):??32 ? Blood Pressure (mmHg):??106/60 ? Cervix Exam (Dil cm/Eff %/Sta -):--/--/--?? Labor S/S:?? Urine Glucose:??Negative Urine Protein:??Trace Next Visit:??+2 weeks from 10/21/2023 Baby A?FHR:??145 ? Movement:??Present per patient ?Presentation:??Transverse ? Date:??10/06/23 EGA:??31w3d Weight (lbs kg):??*128... Fundal Height (cm):??30 ? Blood Pressure (mmHg):??104/58 ? Cervix Exam (Dil cm/Eff %/Sta -):--/--/--?? Labor S/S:?? Urine Glucose:??Negative Urine Protein:??Trace Next Visit:??+2 weeks from 10/06/2023 Baby A?FHR:??145 ? Movement:??Present per patient ?Presentation:??Vertex ? Date:??09/30/23 EGA:??30w4d Weight (lbs kg):??*127... Fundal Height [...] Next Visit:? Problem List/Past Medical History Ongoing Breech presentation Encounter for care in third trimester of [...] Performed: 05/14/23 Rubella,Transcribed: Nonimmune Electronically Signed on 11/04/23 03:23 PM Javier Nance MD Patient Care team information Care Team Personnel Name: SIERRA GUAJARDO Position: No Access Member Role: Primary Care Physician Address: Address: [address] [address]- Care Team Related Persons Name: FLORESTIA VICTORIA Address: Home [address] [place], [place] [phone] [facility] Name: FLORESITA VICTORIA Address: Home [address] [place], [place] [phone] [facility]
--- OUTSIDE RECORDS SUMMARY | 2024-05-26 17:15 | XMS_ITS | Continuity of Care Document ---
Author Organization [facility] Ambulatory Clinics Address [address] [place] [address] Care Team Providers Care Charrer Name Role Phone SIERRA GUAJARDO Primary Care Physician [phone] Encounter [facility]MD FIN NBR [id number] Date(s): 11/25/23 - 11/25/23 [facility] Ambulatory Clinics [address] [place] [address]- Discharge Disposition: Home Allergies, Adverse Reactions, Alerts No Known Allergies Assessment and Plan Future Appointments Appointment Date:12/03/2023 08:00:00 AM Scheduled Provider:Javier Nance MD Location:[facility] Appointment Type:OB Follow Up Appointment Date:12/07/2023 02:30:00 PM Scheduled Provider:Dillon Connolly MD Location:[facility] Appointment Type:OB Follow Up Future Scheduled Tests Radiology* US OB Follow Up 12/03/23 Medications C-Titus DHA oral capsule 1 cap, Oral, Daily, # 90 cap, 3 Refill(s), Pharmacy: [id number] Start Date: 06/24/23 Status: Ordered NIFEdipine 10 mg oral capsule 10 mg = 1 cap, Oral, every 6 hr, 0 Refill(s) Start Date: 10/31/23 Status: Ordered Phenergan 12.5 mg oral tablet 12.5 mg = 1 tab, Oral, every 6 hr, PRN as needed for nausea/vomiting, # 30 tab, 1 Refill(s), Pharmacy: [id number] Start Date: 04/15/23 Status: Ordered [...] Member Role: Primary Care Physician Address: Address: [address] Care Team Related Persons Name: FLORESITA VICTORIA Address: Home [address] [phone] [facility]
--- OUTSIDE RECORDS SUMMARY | 2024-05-26 17:15 | XMS_ITS | Continuity of Care Document ---
Author Organization [facility] Address [address] [place] [id number] Care Team Providers Care Allergy Specialist Name Role Phone SIERRA GUAJARDO Primary Care Physician [phone] Encounter LTTL_FL FIN NBR [id number] Date(s): 10/30/23 - 10/31/[address] [address]- Encounter Diagnosis labor(Discharge Diagnosis) - 10/30/23 Breech presentation(Discharge Diagnosis) - 10/30/23 Rubella non-immune status, antepartum(Discharge Diagnosis) - 10/30/23 Other underimmunization status(Discharge Diagnosis) - 10/30/23 Discharge Disposition: Home or Self Care Attending Physician: Dillon Connolly MD Admitting Physician: Dillon Connolly MD Referring Physician: Dillon Connolly MD Allergies, Adverse Reactions, Alerts No Known Allergies Assessment and Plan Extracted from: Title:Discharge Note Author:Dillon Connolly MD Date :10/31/23 1.?? labor??O60.14X1 2.??Breech presentation??O32.1XX1 3.??Rubella non-immune status, antepartum??O09.899 Other underimmunization status??Z28.39 Orders: NIFEdipine 10 mg oral capsule, 10 mg = 1 cap, Oral, every 6 hr, 0 Refill(s) NIFEdipine, 10 mg = 1 cap, Oral, Cap, every 6 hr for 5 days, First Dose: 10/31/23 7:15:00 EST, Stop Date: 11/05/23 7:14:00 EST, Physician Stop, Routine Bathroom Privileges, 10/31/23 0:51:00 EST, Constant Order, 10/31/23 0:51:00 EST Diet Order, 10/31/23 8:38:00 EST, Regular Discharge Diet Instruction, Regular Discharge Follow Up Instructions, 10/31/23 11:56:00 EST, When following are met: Feeling improved, Follow-up with [facility] on Thursday11/04/2023 as scheduled . Discharge Patient, 10/31/23 11:56:00 EST, Home Independently Heart Monitoring, 10/31/23 0:51:00 EST, PRN, Continuous monitoring during a) epidural anesthesia;b) oxytocin administration, c) 2 hours after use of Cytotec Group B Strep (GeneXpert), Swab, Routine Collect, 10/31/23 0:18:00 EST, Once, Nurse collect, Print Label Hourly Rounding, 10/31/23 0:51:00 EST, PRN, Maternal and Monitoring per policy Isolation Precautions, 10/31/23 0:51:00 EST, [place] Precautions Misc Nursing Task, 10/31/23 11:56:00 EST, Stop date 10/31/23 11:56:00 EST, Check with pharmacy / [facility] for home meds prior to discharge Nitrous Oxide-OB, 10/31/23 0:51:00 EST, Stop date 10/31/23 0:51:00 EST, per OB standard of care Notify Provider, 10/31/23 0:51:00 EST, Constant order, For severe headaches, visual changes, RUQ pain. Notify Provider, 10/31/23 0:51:00 EST, Of patient arrival Notify Provider, 10/31/23 0:51:00 EST, Constant order, If temperature greater than 38 C, if pulse greater than 100, or if blood pressure is dropping Notify Provider of Vital Signs, 10/31/23 0:51:00 EST, If temperature greater than 38 C, if pulse greater than 100, or if blood pressure is dropping., Constant Indicator PSO Admit to Inpatient, Obstetrics, Inpatient, Dillon Connolly MD, 10/31/23 0:52:00 EST, 10/31/23 0:52:00 EST, 10/31/23 0:52:00 EST, 2 midnights or more Resuscitation Status, 10/31/23 0:51:00 EST, Full Code Shower Privileges, 10/31/23 0:51:00 EST, PRN Temperature, 10/31/23 0:51:00 EST, Constant order, q4 hours until ROM, then q1 hours Vaginal Exam, 10/31/23 0:51:00 EST, Perform vaginal exam prior to pain medication administration, epidural placement, & PRN - If gestation < 34weeks, documented Placenta Previa, or vaginal bleeding consult provider, Stop date 10/31/23 0:51:00 EST Extracted from: Title:OB Admission H&P Author:Dillon Connolly MD Da te:10/31/23 1.?? labor??O60.14X1 IUP 35 0/7 weeks 2.??Breech presentation??O32.1XX1 3.??Rubella non-immune status, antepartum??O09.899 Other underimmunization status??Z28.39 Orders: betamethasone, 12 mg = 2 mL, Intramuscular, Vial, Once, First Dose: 10/31/23 1:00:00 EST, Stop Date: 10/31/23 1:00:00 EST, Physician Stop, Routine ABO/Rh Echo, Blood, Routine, 10/31/23 0:20:00 EST, Once, Lab Collect, labor in third trimester ABSC Echo, Blood, Routine, 10/31/23 0:20:00 EST, Once, Lab Collect, labor in third trimester Activity, 10/31/23 0:51:00 EST, Stop date 10/31/23 0:51:00 EST, Up ad shabana Bathroom Privileges, 10/31/23 0:51:00 EST, Constant Order, 10/31/23 0:51:00 EST Diet Order, 10/31/23 0:51:00 EST, NPO Heart Monitoring, 10/31/23 0:51:00 EST, PRN, Continuous monitoring during a) epidural anesthesia;b) oxytocin administration, c) 2 hours after use of Cytotec Group B Strep (GeneXpert), Swab, Routine Collect, 10/31/23 0:18:00 EST, Once, Nurse collect, Print Label Hourly Rounding, 10/31/23 0:51:00 EST, PRN, Maternal and Monitoring per policy Isolation Precautions, 10/31/23 0:51:00 EST, [place] Precautions Misc Nursing Task, 10/31/23 0:51:00 EST, Once, Stop date 10/31/23 0:51:00 EST, Emergency orders as needed per standards of care [facility] Nursing Task, 10/31/23 0:51:00 EST, Stop date 10/31/23 0:51:00 EST, Initiate appropriate standards of care Nitrous Oxide-OB, 10/31/23 0:51:00 EST, Stop date 10/31/23 0:51:00 EST, per OB standard of care Notify Provider, 10/31/23 0:51:00 EST, Constant order, For severe headaches, visual changes, RUQ pain. Notify Provider, 10/31/23 0:51:00 EST, Of patient arrival Notify Provider, 10/31/23 0:51:00 EST, Constant order, If temperature greater than 38 C, if pulse greater than 100, or if blood pressure is dropping Notify Provider of Vital Signs, 10/31/23 0:51:00 EST, If temperature greater than 38 C, if pulse greater than 100, or if blood pressure is dropping., Constant Indicator PSO Admit to Inpatient, Obstetrics, Inpatient, Dillon Connolly MD, 10/31/23 0:52:00 EST, 10/31/23 0:52:00 EST, 10/31/23 0:52:00 EST, 2 midnights or more Resuscitation Status, 10/31/23 0:51:00 EST, Full Code Shower Privileges, 10/31/23 0:51:00 EST, PRN Temperature, 10/31/23 0:51:00 EST, Constant order, q4 hours until ROM, then q1 hours Vaginal Exam, 10/31/23 0:51:00 EST, Perform vaginal exam prior to pain medication administration, epidural placement, & PRN - If gestation < 34weeks, documented Placenta Previa, or vaginal bleeding consult provider, Stop date 10/31/23 0:51:00 EST Vital Signs, 10/31/23 0:51:00 EST, Once, Stop date 10/31/23 0:51:00 EST Admit to OB.?? IV??fluids,??Nifedipine??20 mg??p.o.??as per??protocol for toco lysis.?? steroids- Betamethasone 12 mg IM.?? Discussed plan of care with patient for?? labor and breech presentation.?? Plan delivery for progression of cervical dilation or??rupture membranes. Future Appointments Appointment Date:11/04/2023 02:45:00 PM Scheduled Provider:Javier Nance MD Location:[facility] Appointment Type:OB Follow Up Functional Status 10/31/23 Family Member Travel History No recent t ravel Recent Travel History No recent travel Other exposure to Infectious Disease Non e Medications C-Titus DHA oral capsule 1 cap, Oral, Daily, # 90 cap, 3 Refill(s), Pharmacy: [id number] Start Date: 06/24/23 Status: Ordered NIFEdipine 10 mg oral capsule 10 mg = 1 cap, Oral, every 6 hr, 0 Refill(s) Start Date: 10/31/23 Status: Ordered Phenergan 12.5 mg oral tablet 12.5 mg = 1 tab, Oral, every 6 hr, PRN as needed for nausea/vomiting, # 30 tab, 1 Refill(s), Pharmacy: [id number] Start Date: 04/15/23 Status: Ordered Tylenol [...] wisdom tooth 2021 Completed 1X 4 Results Laboratory List Name Date Automated Diff 10/31/23 ABO/Rh Echo 10/30/23 ABSC Echo (Antibody Screen Echo) 10/30/23 CBC w/ Diff 10/30/23 Group B Strep (GeneXpert) 10/30/23 Most recent to oldest [Reference Range]: 1 WBC [4.8-10.8 K/mcL] 14.9 K/mcL *HI* (10/30/23 11:45 PM) RBC [4.20-5.40 Million/mcL] 3.98 Million /mcL *LOW* (10/30/23 11:45 PM) Neutro Auto [42.2-75.2 %] 79.2 % *HI* (10/30/23 11:45 PM) Lymph Auto [20.5-51.1 %] 14.7 % *LOW* (10/30/23 11:45 PM) [place] Auto [1.7-9.3 %] 5.3 % (10/30/23 11:45 PM) Basophil Auto [0.0-0.8 %] 0.3 % (10/30/23 11:45 PM) Baso Absolute [0.0-0.2 K/mcL] 0.0 K/mcL (10/30/23 11:45 PM) MCV [81.0-99.0 fL] 90.2 fL (10/30/23 11:45 PM) MCHC [32.0-37.0 g/dL] 34.1 g/dL (10/30/23 11:45 PM) Lymph Absolute [1.2-3.4 K/mcL] 2.2 K/mcL (10/30/23 11:45 PM) Hct [37.0-47.0 %] 35.9 % *LOW* (10/30/23 11:45 PM) [place] Absolute [0.1-0.6 K/mcL] 0.8 K/mcL *HI* (10/30/23 11:45 PM) MCH [27.0-31.0 pg] 30.7 pg (10/30/23 11:45 PM) Neutro Absolute [1.4-6.5 K/mcL] 11.8 K/m cL *HI* (10/30/23 11:45 PM) Hgb [12.0-16.0 g/dL] 12.2 g/dL (10/30/23 11:45 PM) MPV [7.4-10.4 fL] 8.9 fL (10/30/23 11:45 PM) Platelets [130-400 K/mcL] 170 K/mcL (10/30/23 11:45 PM) Eos Absolute [0.0-0.2 K/mcL] 0.1 K/mcL (10/30/23 11:45 PM) RDW-CV [11.5-14.5 %] 14.3 % (10/30/23 11:45 PM) Slide Review Not Indicated (10/30/23 11:45 PM) Group B Strep (GeneXpert) [Negative] Neg ative (10/30/23 11:30 PM) ABO/Rh Echo A POS *Unknown* (10/30/23 11:45 PM) Eos, Auto [0.00-3.00 %] 0.50 % (10/30/23 11:45 PM) ABSC Echo Negative ABSC (10/30/23 11:45 PM) Vital Signs Most recent to oldest [Reference Range]: 1 2 3 Temperature Temporal Artery [36-38 Deg C] 37.3 Deg C (10/31/23 1:44 PM) 36.4 Deg C (10/31/23 1:10 PM) 36.8 Deg C (10/31/23 8:06 AM) Heart Rate Monitored [60-100 bpm] 111 bpm *HI* (10/31/23 10:37 AM) 100 bpm (10/31/23 8:06 AM) 102 bpm *HI* (10/31/23 7:36 AM) Respiratory Rate [12-24 br/min] 19 br/min (10/31/23 10:37 AM) Blood Pressure [90-140/60-90 mmHg] 111/61mmHg (10/31/23 10:37 AM) 100/55mmHg (10/31/23 8:06 AM) 89/50mmHg *LOW* (10/31/23 7:36 AM) Mean Arterial Pressure, Cuff [70-110 mmHg] 78 mmHg (10/31/23 10:37 AM) 70 mmHg (10/31/23 8:06 AM) 63 mmHg *LOW* (10/31/23 7:36 AM) Weight 59 kg (10/31/23 1:27 AM) 59 kg (10/31/23 1:06 AM) Weight Dosing 59.000 kg (10/31/23 1:06 AM) Height 165.1 cm (10/31/23 1:27 AM) 165.1 cm (10/31/23 1:06 AM) BSA Measured 1.64 m2 (10/31/23 1:06 AM) BSA Estimated 0 m2 (10/31/23 1:06 AM) Body Mass Index 21.65 kg/m2 (10/31/23 1:27 AM) 21.65 kg/m2 (10/31/23 1:06 AM) Body Mass Index Percentile 51.00 1 (10/31/23 1:27 AM) 51.00 2 (10/31/23 1:06 AM) Height/Length Percentile 61.15 3 (10/31/23 1:27 AM) 61.15 4 (10/31/23 1:06 AM) Weight Percentile 56.35 5 (10/31/23 1:27 AM) 56.35 6 (10/31/23 1:06 AM) 1Result Comment: ^~:!Percentile Source -[facility] 2Result Comment: ^~:!Percentile Source [facility] 3Result Comment: ^~:!Percentile Source [facility] 4Result Comment: ^~:!Percentile Source [facility] 5Result Comment: ^~:!Percentile Source [facility] 6Result Comment: ^~:!Percentile Source [facility] Social History Social History Type Response Smoking Status Smoking tobacco use: Never tobacco user;Never entered on: 06/11/23 Sex Female Hospital Discharge Instructions Patient Education 10/31/2023 10:53:33 Labor, [id number] Labor normally lasts 39???41 weeks. labor is when labor starts before you have been for 37 weeks. Babies who are born too early may have a higher risk for long-term problems likecerebral palsy or developmental delays. They may also have problems soon after , such as problems with blood sugar, body temperature, heart, and breathing. These problems may be very serious in babies who are born before 34 weeks of . What are the causes? The cause of this condition is not known. What increases the risk? You are more likely to have labor if: ??? You have medical problems, now or in the past. ??? You have problems now or in your past pregnancies. ??? You have lifestyle problems. Medical history ??? You have problems of the womb (uterus). ??? You have an infection, including infections you get from sex. ??? You have problems that do not go away, such as: ??? Blood clots. ??? High blood pressure. ??? High blood sugar. ??? You have low body weight or too much body weight. Present and past pregnancies ??? You have had labor before. ??? You are with two babies or more. ??? You have a condition in which the placenta covers your cervix. ??? You waited less than 18 months between giving and becoming again. ??? Your unborn baby has some problems. ??? You have bleeding from your vagina. ??? You became by a method called IVF. Lifestyle ??? You smoke. ??? You drink alcohol. ??? You use drugs. ??? You have stress. ??? You have abuse in your home. ??? You come in contact with chemicals that harm the body (pollutants). Other factors ??? You are younger than 17 years or older than 35 years. What are the signs or symptoms? Symptoms of this condition include: ??? Cramps. The cramps may feel like cramps from a period. You may also have watery poop (diarrhea). ??? Pain in the belly (abdomen). ??? Pain in the lower back. ??? Regular contractions. It may feel like your belly is getting tighter. ??? Pressure in the lower belly. ??? More fluid leaking from the vagina. The fluid may be watery or bloody. ??? Water breaking. How is this treated? Treatment for this condition depends on your health, the health of your baby, and how old your is. It may include: ??? Taking medicines, such as: ??? Hormone medicines. ??? Medicines to stop contractions. ??? Medicines to help mature the baby's lungs. ??? Medicines to prevent your baby from getting cerebral palsy or other problems. ??? Bed rest. If the labor happens before 34 weeks of , you may need to stay in the hospital. ??? Delivering the baby. Follow these instructions at home: ??? Do not smoke or use any products that contain nicotine or tobacco. If you need help quitting, ask your doctor. ??? Do not drink alcohol. ??? Take reyt-uuk-[id number] and prescription medicines only as told by your doctor. ??? Rest as told by your doctor. ??? Return to your normal activities when your doctor says that it is safe. ??? Keep all follow-up visits. How is this prevented? To have a healthy : ??? Do not use drugs. ??? Do not use any medicines unless you ask your doctor if they are safe for you. ??? Talk with your doctor before taking any herbal supplements. ??? Make sure you gain enough weight. ??? Watch for infection. If you think you might have an infection, get it checked right away. Symptoms of infection may include: ??? Fever. ??? Vaginal discharge that smells bad or is not normal. ??? Pain or burning when you pee. ??? Needing to pee urgently. ??? Needing to pee often. ??? Peeing small amounts often. ??? Blood in your pee. ??? Pee that smells bad or unusual. Where to find more information ??? U.S. Department of Health and Human Services Office on Women's Health: www.womenshealth.gov ??? The [place] [employer]: www.acog.org ??? Centers for Disease Control and Prevention: www.cdc.gov Contact a doctor if: ??? You think you are going into labor. ??? You have symptoms of labor. ??? You have symptoms of infection. Get help right away if: ??? You are having painful contractions every 5 minutes or less. ??? Your water breaks. Summary ??? labor is labor that starts before you reach 37 weeks of . ??? Your baby may have problems if delivered early. ??? You are more likely to have labor if you have certain medical problems or problems witha now or in the past. Some lifestyle factors can also increase the risk. ??? Contact a doctor if you have symptoms of labor. This information is not intended to replace advice given to you by your health care provider. Make sure you discuss any questions you have with your health care provider. Document Revised: 09/17/2021 Document Reviewed: 09/17/2021 [employer] Patient Education ?? 2022 [employer] History and physical note * Dillon Connolly MD: PERFORM Event Display: History and Physical Authored Date: [id number] MIKEY VICTORIA :2005 Age:18 years Sex:Female Visit Date:10/30/2023 Primary Care Physician: SIERRA GUAJARDO Reason for Visit OB Abdominal pain Labor check History of Present Illness 18yo , ANGELIQUE- 12/05/2023 The patient presented to OB due to regular uterine contractions. ??No leaking of fluid or vaginal bleeding.?? Upon arrival to OB??she was having regular uterine contractions every 2 to 4 minutes.?IV fluids were started??and a??GBS??was obtained.?? Her blood type is A Positive and she is Rubella Non-Immune. Review of Systems Constitutional: No fevers, chills, sweats Eye: No recent visual problems ENMT: No ear pain, nasal congestion, sore throat Respiratory: No shortness of breath, cough Cardiovascular: No chest pain, palpitations, syncope Gastrointestinal: No nausea, vomiting, diarrhea Genitourinary: No hematuria, no dysuria, no unexpected vaginal bleeding, no ??change in vaginal discharge, no pelvic pain Gagan/Lymph: Negative for bruising tendency, swollen lymph glands Endocrine: Negative for excessive thirst, excessive hunger Musculoskeletal: No back pain, neck pain, joint pain, muscle pain, decreased range of motion Integumentary: No rash, pruritus, abrasions Neurologic: Alert & oriented X 4 Psychiatric: No anxiety, depression Physical Exam General: Alert and oriented, well nourished, no acute distress Eye: Pupils equal, EOMI HEENT: Normocephalic, grossly normal hearing, moist oral mucosa, no scleral icterus Lungs: Clear to auscultation, non-labored respiration Heart: Normal rate, regular rhythm, no murmurs Abdomen: Nontender, gravid Musculoskeletal: Grossly normal range of motion and strength, no tenderness or swelling Skin: Skin is warm, dry, no rashes Neurologic: Awake, alert, and oriented X4, CN II-XII grossly intact Psychiatric: Cooperative, appropriate mood and affect ? Cervix: 1cm/80%/-2, Intact Membranes, Incomplete Breech presentation by bedside US ? Heart Monitor: Reassuring?? heart rate tracing. ??Contractions q2-4min. Assessment/Plan 1.?? labor??O60.14X1 IUP 35 0/7 weeks 2.??Breech presentation??O32.1XX1 3.??Rubella non-immune status, antepartum??O09.899 Other underimmunization status??Z28.39 Orders: betamethasone, 12 mg = 2 mL, Intramuscular, Vial, Once, First Dose: 10/31/23 1:00:00 EST, Stop Date: 10/31/23 1:00:00 EST, Physician Stop, Routine ABO/Rh Echo, Blood, Routine, 10/31/23 0:20:00 EST, Once, Lab Collect, labor in third trimester ABSC Echo, Blood, Routine, 10/31/23 0:20:00 EST, Once, Lab Collect, labor in third trimester Activity, 10/31/23 0:51:00 EST, Stop date 10/31/23 0:51:00 EST, Up ad shabana Bathroom Privileges, 10/31/23 0:51:00 EST, Constant Order, 10/31/23 0:51:00 EST Diet Order, 10/31/23 0:51:00 EST, NPO Heart Monitoring, 10/31/23 0:51:00 EST, PRN, Continuous monitoring during a) epidural anesthesia;b) oxytocin administration, c) 2 hours after use of Cytotec Group B Strep (GeneXpert), Swab, Routine Collect, 10/31/23 0:18:00 EST, Once, Nurse collect, Print Label Hourly Rounding, 10/31/23 0:51:00 EST, PRN, Maternal and Monitoring per policy Isolation Precautions, 10/31/23 0:51:00 EST, [place] Precautions [facility] Nursing Task, 10/31/23 0:51:00 EST, Once, Stop date 10/31/23 0:51:00 EST, Emergency orders as needed per standards of care [facility] Nursing Task, 10/31/23 0:51:00 EST, Stop date 10/31/23 0:51:00 EST, Initiate appropriate standards of care Nitrous Oxide-OB, 10/31/23 0:51:00 EST, Stop date 10/31/23 0:51:00 EST, per OB standard of care Notify Provider, 10/31/23 0:51:00 EST, Constant order, For severe headaches, visual changes, RUQ pain. Notify Provider, 10/31/23 0:51:00 EST, Of patient arrival Notify Provider, 10/31/23 0:51:00 EST, Constant order, If temperature greater than 38 C, if pulse greater than 100, or if blood pressure is dropping Notify Provider of Vital Signs, 10/31/23 0:51:00 EST, If temperature greater than 38 C, if pulse greater than 100, or if blood pressure is dropping., Constant Indicator PSO Admit to Inpatient, Obstetrics, Inpatient, Dillon Connolly MD, 10/31/23 0:52:00 EST, 10/31/23 0:52:00 EST, 10/31/23 0:52:00 EST, 2 midnights or more Resuscitation Status, 10/31/23 0:51:00 EST, Full Code Shower Privileges, 10/31/23 0:51:00 EST, PRN Temperature, 10/31/23 0:51:00 EST, Constant order, q4 hours until ROM, then q1 hours Vaginal Exam, 10/31/23 0:51:00 EST, Perform vaginal exam prior to pain medication administration, epidural placement, & PRN - If gestation < 34weeks, documented Placenta Previa, or vaginal bleeding consult provider, Stop date 10/31/23 0:51:00 EST Vital Signs, 10/31/23 0:51:00 EST, Once, Stop date 10/31/23 0:51:00 EST Admit to OB.?? IV??fluids,??Nifedipine??20 mg??p.o.??as per??protocol for toco lysis.?? steroids- Betamethasone 12 mg IM.?? Discussed plan of care with patient for?? labor and breechpresentation.?? Plan delivery for progression of cervical dilation or??rupture membranes. LMP/EGA/ANGELIQUE No qualifying data available. Gestational Age (EGA) and ANGELIQUE? * Note: EGA calculated as of 10/31/2023 ?? ANGELIQUE:??12/05/2023?EGA*:??35 weeks ?Type:??Authoritative?Method Date:??04/15/2023 ?Method:??Ultrasound??(04/15/2023) ?Confirmation:??Confirmed ?Description:??-- ?Comments:??-- ?Entered [...] History?(0,0,0,0)?No previous pregnancies history have been recorded Antepartum Risk Factors Risk Factors, Antepartum Current Preg: Other: 10/06/2023 growth US NI 8.7cm, 1776 grams, 40th percentile (10/06/23) Risk Factors, Antepartum Current Preg: Other: rubella nonimmune (05/15/23) Problem List/Past Medical History Ongoing Breech presentation Encounter for care in third trimester of first labor Rubella non-immune status, antepartum Uterine size-date discrepancy, third trimester Historical No qualifying data Procedure/Surgical History ???Extraction of wisdom tooth (2021) Medications Inpatient No active inpatient medications Home C-Titus DHA oral capsule, 1 cap, Oral, [...] Performed: 05/14/23 Rubella,Transcribed: Nonimmune Electronically Signed on 10/31/23 01:01 AM Dillon Connolly MD Discharge summary * Dillon Connolly MD: PERFORM Event Display: Discharge Summary Authored Date: [id number] MIKEY VICTORIA :2005 Age:18 years Sex:Female Visit Date:10/30/2023 Primary Care Physician: SIERRA GUAJARDO Admission Information labor??35 0/7 weeks, Breech presentation Hospital Course 18yo , ANGELIQUE- 12/05/2023 The patient presented to OB due to regular uterine contractions. ??No leaking of fluid or vaginal bleeding.?? Upon arrival to OB??she was having regular uterine contractions every 2 to 4 minutes.?IV fluids were started??and a??GBS??was obtained.?? She received??oral??Nifedipine for toco lysis and?? Steroids, 2 doses of Celestone, to promote?? lung maturity. ??Her cervix was??1 cm/ 80%/-2 with a Incomplete Breech Presentation. ??Overnight??the contractions resolved.?? Significant Findings Incomplete Breech??presentation Procedures and Treatment Provided IV hydration,??Oral??Nifedipine, ??steroids Physical Exam Vitals & Measurements T:??36.8?C ??(Temporal Artery)?? TMIN:??36.4?C ??(Temporal Artery)?? TMAX:??36.8?C ??(Temporal Artery)?? HR:??111??(Monitored)?? RR:??19?? BP:??111/61?? HT:??165.1??cm?? HT:??61.15??(Percentile)?? WT:??59??kg?? WT:??56.35??(Percentile)?? BMI:??21.65?? BMI:??51.00??(Percentile)?? Pain Sco re:??0?? BSA:??1.64?? General: Alert and oriented, well nourished, no acute distress Eye: Pupils equal, EOMI HEENT: Normocephalic, grossly normal hearing, moist oral mucosa, no scleral icterus Lungs: Clear to auscultation, non-labored respiration Heart: Normal rate, regular rhythm, no murmurs Abdomen: Nontender, gravid Musculoskeletal: Grossly normal range of motion and strength, no tenderness or swelling Skin: Skin is warm, dry, no rashes Neurologic: Awake, alert, and oriented X4, CN II-XII grossly intact Psychiatric: Cooperative, appropriate mood and affect ?? Heart Monitor: Reassuring?? heart rate tracing. ??No??contractions. Procedure/Surgical History ???Extraction of wisdom tooth (2021) Social History Alcohol Never Electronic Cigarette/Vaping Electronic Cigarette Use: Never. 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 Previous employment/school: In process of taking GED.. Exercise Exercise frequency: 3-4 times/week. Home/Environment Lives with Father, Mother, Siblings. Living situation: Home/Independent. Sexual Sexually active: Yes. Sexual orientation: Straight or heterosexual. Substance Use Never Tobacco Never tobacco user Tobacco Use:. Never Smokeless Tobacco use:. Discharge Plan 1.?? labor??O60.14X1 2.??Breech presentation??O32.1XX1 3.??Rubella non-immune status, antepartum??O09.899 Other underimmunization status??Z28.39 Orders: NIFEdipine 10 mg oral capsule, 10 mg = 1 cap, Oral, every 6 hr, 0 Refill(s) NIFEdipine, 10 mg = 1 cap, Oral, Cap, every 6 hr for 5 days, First Dose: 10/31/23 7:15:00 EST, StopDate: 11/05/23 7:14:00 EST, Physician Stop, Routine Bathroom Privileges, 10/31/23 0:51:00 EST, Constant Order, 10/31/23 0:51:00 EST Diet Order, 10/31/23 8:38:00 EST, Regular Discharge Diet Instruction, Regular Discharge Follow Up Instructions, 10/31/23 11:56:00 EST, When following are met: Feeling improved, Follow-up with [facility] on Thursday11/04/2023 as scheduled . Discharge Patient, 10/31/23 11:56:00 EST, Home Independently Heart Monitoring, 10/31/23 0:51:00 EST, PRN, Continuous monitoring during a) epidural anesthesia;b) oxytocin administration, c) 2 hours after use of Cytotec Group B Strep (GeneXpert), Swab, Routine Collect, 10/31/23 0:18:00 EST, Once, Nurse collect, Print Label Hourly Rounding, 10/31/23 0:51:00 EST, PRN, Maternal and Monitoring per policy Isolation Precautions, 10/31/23 0:51:00 EST, [place] Precautions Misc Nursing Task, 10/31/23 11:56:00 EST, Stop date 10/31/23 11:56:00 EST, Check with pharmacy / [facility] for home meds prior to discharge Nitrous Oxide-OB, 10/31/23 0:51:00 EST, Stop date 10/31/23 0:51:00 EST, per OB standard of care Notify Provider, 10/31/23 0:51:00 EST, Constant order, For severe headaches, visual changes, RUQ pain. Notify Provider, 10/31/23 0:51:00 EST, Of patient arrival Notify Provider, 10/31/23 0:51:00 EST, Constant order, If temperature greater than 38 C, if pulse greater than 100, or if blood pressure is dropping Notify Provider of Vital Signs, 10/31/23 0:51:00 EST, If temperature greater than 38 C, if pulse greater than 100, or if blood pressure is dropping., Constant Indicator PSO Admit to Inpatient, Obstetrics, Inpatient, Dillon Connolly MD, 10/31/23 0:52:00 EST, 10/31/23 0:52:00 EST, 10/31/23 0:52:00 EST, 2 midnights or more Resuscitation Status, 10/31/23 0:51:00 EST, Full Code Shower Privileges, 10/31/23 0:51:00 EST, PRN Temperature, 10/31/23 0:51:00 EST, Constant order, q4 hours until ROM, then q1 hours Vaginal Exam, 10/31/23 0:51:00 EST, Perform vaginal exam prior to pain medication administration, epidural placement, & PRN - If gestation < 34weeks, documented Placenta Previa, or vaginal bleeding consult provider, Stop date 10/31/23 0:51:00 EST All Diagnoses This Visit labor Breech presentation Rubella non-immune status, antepartum Other underimmunization status Patient Discharge Condition Stable Discharge Disposition Discharge home Patient Instructions Modified bedrest at home Patient Education Labor, [id number] Medication Reconciliation New Prescription NIFEdipine (NIFEdipine 10 mg oral capsule)1 Capsules Oral (given by mouth) every 6 hours. ?? Unchanged acetaminophen (Tylenol 325 mg oral capsule)1 Capsules Oral (given by mouth) every 4 hours as neededas needed for pain. ?? ascorbic acid (Vitamin C 500 mg oral tablet)1 tab Oral (given by mouth) every day. ?? multivitamin, (C-Titus DHA oral capsule)1 Capsules Oral (given by mouth) every day. Refills: 3. ?? promethazine (Phenergan 12.5 mg oral tablet)1 tab Oral (given by mouth) every 6 hours as needed as needed for nausea/vomiting. Refills: 1. Electronically Signed on 10/31/23 12:03 PM Dillon Connolly MD Patient Care team information Care Team Personnel Name: SIERRA GUAJARDO Position: No Access Member Role: Primary Care Physician Address: Address: [address] Care Team Related Persons Name: FLORESITA VICTORIA Address: Home [address] [place], [place] [id number] [facility] Name: FLORESITA VICTORIA Address: Home [address] [place], [place] [id number] [facility]
--- OUTSIDE RECORDS SUMMARY | 2024-05-26 17:15 | XMS_ITS | Continuity of Care Document ---
Author Organization [facility] Ambulatory [facility] Address [address] [place] [address] Care Team Providers Care Computer Typesetter Keyliner Name Role Phone SIERRA GUAJARDO Primary Care Physician Encounter [facility] NBR [id number] Date(s): 01/14/24 - 01/14/24 [facility] [address], [place] [address] Encounter Diagnosis Encounter for visit(Discharge Diagnosis) - 01/14/24 Encounter for initial prescription of etonogestrel contraceptive single-annika subdermal contraceptiveimplant(Discharge Diagnosis) - 01/14/24 Discharge Disposition: Home or Self Care Attending Physician: Pamela Hill APRN Allergies, Adverse Reactions, Alerts No Known Allergies Assessment and Plan Future Appointments Medications ferrous sulfate 325 mg (65 mg elemental iron) oral delayed release tablet 325 mg = 1 tab, Oral, Daily, 0 Refill(s) Start Date: 12/06/23 Status: Ordered Plus 1 tab, Oral, Daily, 0 Refill(s) Start Date: 01/14/24 Status: Ordered Tylenol 325 mg oral capsule [...] Status Health [facility] Informant Encounter for visit Confirmed Active Rubella non-immune status, antepartum Confirmed Active Procedures Procedure Date Related Diagnosis Body Site Status Extraction of wisdom tooth 2021 Completed 1X 4 Vital Signs Most recent to oldest [Reference Range]: 1 Weight 51.9 kg (01/14/24 10:10 AM) Weight Measured (lbs) 114.42 lb (01/14/24 10:10 AM) Weight Dosing 51.900 kg (01/14/24 10:10 AM) Weight Percentile 24.04 1 (01/14/24 10:10 AM) 1Result Comment: ^~:!Percentile Source -[facility] Social History Social History Type Response Smoking Status Smoking tobacco use: Never tobacco user;Never entered on: 06/11/23 Sex Female summary Document * Event Display: Summary Document Authored Date: [id number] MIKEY VICTORIA : 2005 Age: 18 Years MIKEY VICTORIA : [birth year] Summary (Date of Report: 12/18/23) G 1 P 0 (0,0,0,0) Gestation: Miller LMP (from pt. history): -- ANGELIQUE: 12/05/2023 ANGELIQUE/EGA Method: Ultrasound EGA: Delivered Gestation info at delivery: Baby A : 39 weeks 5 days MIKEY VICTORIA : [birth year] Antepartum Note Date: 12/03/23 [...] 14:39 (31 weeks) By: Pamela Hill APRN US today, report pending Date: 08/07/23 13:08 (22 weeks) By: Javier Nance MD GCT next visit. Date: 07/10/23 12:05 (18 weeks) By: Dillon Connolly MD 2nd Trimester US, needs follow-up Date: 05/14/23 10:54 (10 weeks) By: Shashank Ling MD BBSUS done. Down for labs MIKEY VICTORIA : [birth year] Problems (Active Problems Only) (SNOMED CT: 637436959, Onset: 04/15/23) Rubella non-immune (SNOMED CT: 105036176, Onset: --) Third trimester (SNOMED CT: 33744868, Onset: --) Uterine size for dates discrepancy (SNOMED CT: 3937549037, Onset: --) labor in third trimester with delivery in third trimester (SNOMED CT: 5793759594, Onset: --) Oligohydramnios (SNOMED CT: 63364372, Onset: --) Disorder of (SNOMED CT: 272319346, Onset: --) MIKEY VICTORIA : [birth year] Risk Factors and Genetic Screening All Results Documented Since 04/15/2023 Risk Factors (Current ) Unique Risk Factors: Other: 10/06/2023 growth US NI 8.7cm, 1776 grams, 40th percentile, Other: rubella nonimmune Ethnic Screening Self: , *Other *Comments Other: [facility] Genetic Disorders Screening Baby's Mother - Negative: Defect, Cystic Fibrosis, Down Syndrome, Hemophilia, Thompson's Chorea, Mental Retardation, Muscular Dystrophy, Neural Tube, Sickle Cell Disease, Odell Sachs, Thalassemia, Other, Alda Disease, Congenital Heart Defect, Maternal Metabolic Disorder, Recurrent Preg Loss /Stillbirth MIKEY VICTORIA : [birth year] Gestational Age (EGA) and [...] Entered by: Shashank Ling MD on 05/14/2023 MIKEY VICTORIA : 04 Measurements Pre- Weight: 49.90 kg 08/07/23 (22 weeks) Recent Weight Measured: 60.4 kg (+11) 12/03/23 (39 weeks) Height/Length Measured: 135.1 cm 12/03/23 (39 weeks) Body Mass Index Measured: 33.09 kg/m2 12/03/23 (39 weeks) MIKEY VICTORIA ML : 04 Exam and Notes Date JIMENA Guardado PTL S/S Cervix BP Weight Urine Baby [...] Baby A = 145 *Present pe... -- 09/17/23d 28 None -- -- -- 94/56 *128... -- -- Baby A = 145 *Present pe... -- 09/03/23w5d -- -- -- -- -- 92/50 *128... -- -- -- -- -- 08/07/23d 23 None -- -- -- 98/52 *117... -- -- Baby A = 156 *Present pe... -- 07/10/23 186d 18 None -- -- -- 108/54 *118... Negative Negative Baby A = 150 -- -- 06/11/23 14 None -- -- -- 98/62 *112... Negative Trace Baby A = 154 -- -- 05/14/23 11 -- -- -- -- 106/68 *110... [...] Present per patient 08/07/2023 Present per patient MIKEY VICTORIA : 04 Physical Exams Physical Exam [...] Color: Normal for ethnicity (12/05/23) Skin Description: [place], Dry (12/03/23) Skin Temperature: Warm (12/06/23) Skin Turgor: Elastic (12/06/23) Skin Moisture General: Dry (12/06/23) Skin Integrity: Intact, no abnormalities (12/05/23) Mucous Membrane Color: [place] (12/06/23) MIKEY VICTORIA : 04 Blood Types and Anti-D Immune Globulin Blood Type and Screen Mother ABO/Rh: -- Mother Antibody Screen: -- Father of Baby ABO/Rh: -- Father of Baby Antibody Screen: -- Anti-D Immune Globulin Rho(D) Initial Status: -- Rho(D) 28 Week Status: -- Rho(D) Dates Given: -- MIKYE VICTORIA : 04 Tests and Lab Results [...] K/mcL 05/14/23 (10 weeks) (1.4 - 6.5) Bailey Absolute 0.3 K/mcL 05/14/23 (10 weeks) (0.1 - 0.6) Baso Absolute 0.0 K/mcL 05/14/23 (10 weeks) (0.0 - 0.2) Basophil Auto 0.5 % 05/14/23 (10 weeks) (0.0 - 0.8) Bailey Auto 4.4 % 05/14/23 (10 weeks) (1.7 [...] 06/11/23 (14 weeks) Protein Urine Dipstick Negative 07/10/23 (18 weeks) Urine Appearance Urine Dipstick Clear 07/10/23 (18 weeks) Urine Color Urine Dipstick Yellow 07/10/23 (18 weeks) Glucose Urine Dipstick Negative 07/10/23 (18 weeks) Test Result Date Ref Range Slide Review Not Indicated 09/03/23 (26 weeks) RDW-CV 12.8 % 09/03/23 (26 weeks) (11.5 - 14.5) Platelets 185 K/mcL 09/03/23 (26 weeks) (130 - 400) MPV 9.1 fL 09/03/23 (26 weeks) (7.4 - 10.4) Hgb (L) 11.6 g/dL 09/03/23 (26 weeks) (12.0 - 16.0) WBC 10.1 K/mcL 09/03/23 (26 weeks) (4.8 - 10.8) Hct (L) 34.1 % 09/03/23 (26 weeks) (37.0 - 47.0) MCHC 34.0 g/dL 09/03/23 (26 weeks) (32.0 - 37.0) MCV 91.5 fL 09/03/23 (26 weeks) (81.0 - 99.0) RBC (L) 3.73 Million/mcL 09/03/23 (26 weeks) (4.20 - 5.40) MCH (H) 31.1 pg 09/03/23 (26 weeks) (27.0 - 31.0) Basophil Auto 0.3 % 09/03/23 (26 weeks) (0.0 - 0.8) Eos, Auto 0.30 % 09/03/23 ( weeks) (0.00 - 3.00) Eos Absolute 0.0 K/mcL 09/03/23 ( weeks) (0.0 - 0.2) Neutro Absolute (H) 7.9 K/mcL 09/03/23 ( weeks) (1.4 - 6.5) Bailey Absolute 0.5 K/mcL 09/03/23 ( weeks) (0.1 - 0.6) Lymph Absolute 1.7 K/mcL 09/03/23 ( weeks) (1.2 - 3.4) Baso Absolute 0.0 K/mcL 09/03/23 ( weeks) (0.0 - 0.2) Bailey Auto 4.7 % 09/03/23 ( weeks) (1.7 [...] K/mcL 10/30/23 (34 weeks) (1.2 - 3.4) Bailey Auto 5.3 % 10/30/23 (34 weeks) (1.7 - 9.3) Bailey Absolute (H) 0.8 K/mcL 10/30/23 (34 weeks) [...] K/mcL 12/03/23 (39 weeks) (1.4 - 6.5) Bailey Absolute 0.5 K/mcL 12/03/23 (39 weeks) (0.1 - 0.6) Neutro Auto (H) 79.8 % 12/03/23 (39 weeks) (42.2 - 75.2) Baso Absolute 0.0 K/mcL 12/03/23 (39 weeks) (0.0 - 0.2) Lymph Absolute 1.7 K/mcL 12/03/23 (39 weeks) (1.2 - 3.4) Eos, Auto 0.10 % 12/03/23 (39 weeks) (0.00 - 3.00) Bailey Auto 4.7 % 12/03/23 (39 weeks) (1.7 [...] Non Reactive 12/03/23 (39 weeks) Non Reactive MIKEY VICTORIA : 04 Actions No Actions have been documented. MIKEY VICTORIA : 04 Situational Awareness No comments have been documented. MIKEY VICTORIA : 04 Allergies (Active and Proposed Allergies Only) No Known Allergies (Severity: Unknown severity, Onset: Unknown) MIKEY VICTORIA : 04 Medications Prescriptions and Home [...] N/A, Once Status: Completed Ordered: 10/31/23 Provider: Dino Generated betamethasone (Betamethasone Acet-Phos 6 mg/ml Inj 5ml [LTTL]) 12 mg = 2 mL, Intramuscular, Once Status: Completed Ordered: 10/31/23 Provider: Dillon Connolly MD betamethasone (Betamethasone Acet-Phos 6 mg/ml Inj 5ml [LTTL]) 12 mg = 2 mL, Intramuscular, Once Status: Completed Ordered: 10/31/23 Provider: Dillon Connolly MD BUPivacaine 0.25% preservative-free (bupivacaine) 75 mg = 30 mL, N/A, Once Status: Completed Ordered: 12/03/23 Provider: Dino Generated lidocaine 1% (lidocaine) 20 mL, N/A, Once Status: Completed Ordered: 12/03/23 Provider: Dino Generated lidocaine 1% injectable solution (lidocaine 1% 20 mL Vial [LTTL]) 20 mL, !-percutaneous, Once Status: Completed Ordered: 12/03/23 Provider: Dillon Connolly MD Methergine (methylergonovine 0.2 mg/mL 1 mL Vial [LTTL]) 0.2 mg = 1 mL, Intramuscular, Once Status: Completed Ordered: 12/03/23 Provider: Dillon Connolly MD mineral oil 100% (mineral oil) 30 mL, N/A, Once Status: Completed Ordered: 12/03/23 Provider: Dino Generated morphine (Morphine 2 mg/mL Inj 1 ml [LTTL]) 5 mg = 2.5 mL, Intramuscular, Once Status: Completed Ordered: 10/31/23 Provider: Dillon Connolly MD morphine 6 mg = 3 mL, N/A, Once Status: Completed Ordered: 10/31/23 Provider: Dino Generated NIFEdipine (NIFEdipine 10 mg Cap [LTTL]) [...] Status: Completed Ordered: 10/31/23 Provider: DomainUser, Generated ROPivacaine 0.2% (ropivacaine) 200 mg = 100 mL, N/A, Once Status: Completed Ordered: 12/03/23 Provider: DomainUser, Generated acetaminophen (acetaminophen 325 mg Tab [LTTL]) 650 mg = 2 tab, Oral, every 4 hr, PRN: pain, mild Status: Discontinued Ordered: 12/03/23 Provider: Dillon Connolly MD benzocaine-menthol 20%-0.5% topical spray (benzocaine-menthol 20-0.5% topical [place] [LTTL]) 1 luz, Topical, As Directed, PRN: [...] Discontinued Ordered: 12/03/23 Provider: Dillon Connolly MD MIKEY VICTORIA : 04 Immunizations No immunizations have been administered or recorded as given MIKEY VICTORIA : 04 Menstrual History Last Recorded Menstrual Period: -- Last Menstrual Period Description: Normal amount/duration Menarche Onset: 13 years Menarche Frequency: -- Menarche Length: 2-7 days Date of Menses Prior to LMP: -- On Hormonal Contracept within 2 months of LMP: -- Date of Home Test: -- Comments: monthly, lasting 2-7 days, normal flow MIKEY VICTORIA : 04 History (0,0,0,0) No previous pregnancies history have been recorded MIKEY VICTORIA : 04 Medical History Past Medical [...] Comment: X 4 (Alissa Das on 06/11/23) MIKEY VICTORIA : 04 Social & Psychosocial History Social [...] No active psychosocial history has been recorded MIKEY VICTORIA ML : 04 Infection History Infection history negative or not recorded MIKEY VICTORIA : 04 Anesthesia and Transfusions Prior Anesthesia or Transfusion Received: Prior general anesthesia, No prior transfusion Prior Anesthesia Reaction(s): -- Prior Transfusion Reaction(s): -- Blood Transfusion Acceptable to Patient: -- MIKEY VICTORIA DOB: [birth year] Plan and Patient Requests Desired Delivery Location: -- Education: -- Written Plan: -- Written Plan Location: -- Support Person/Assembler Product Relationship to Pt: -- Oral Intake OB: -- Labor Preferences: -- Non-Medicinal Pain Relief: -- Anesthesia/Pain Medication During Labor: -- Delivery Plan: -- Feeding: -- Circumcision: -- Baby For Adoption: -- Patient Requests: -- Father of the Baby's Name: -- Educational Manager Selected: -- Surrogate : -- Support Person's Name: -- MIKEY VICTORIA: 04 Education Educational Materials/Leaflets Provided Title/Topic Date Provided [facility] - Vaginal or Delivery Post Discharge Instructions 12/06/23 and Breast Care, Ksui-wj-Udqk 12/06/23 Influenza, Adult 11/24/23 Labor, Tjot-kv-Wziq 10/31/23 MIKEY VICTORIA : 04 Registration and Information Race: White Ethnicity: Not , , or Irish Origin Marital Status: Single Language(s): Croatian Scientology Preference(s): Ep[employer] Occupation/Education: Address, Phone, and Health Plans Home Address: [address] [place], [place] [address]Jenn [address] [phone] (Home), , -- Health Plans: 1 - SELF PAY Member/Group: -- Deductible: $ -- Type: Self Pay Address: [address] [address], [place] [address] Phone: -- 2 - [place]ID [place] Member/Group: [id number] Deductible: $ -- Type: Medicaid Address: [address] [id number] 3 - [place] Member/Group: [id number] Deductible: $ -- Type: Medicaid Address: [address] [id number] General Information OB Provider(s) Information: Not explicitly recorded. May be noted in encounter section below. See below for detailed information for all visits and information. Delivery Center/Hospital Information: -- Provider Information: -- Referring Provider Information: Javier Nance MD Primary Provider Information: SIERRA GUAJARDO /Partner Information: -- -- Support Person Information: -- Planned/Unplanned : -- Date Consent Signed for Tubal Ligation: -- Date Record Sent to Hospital: -- MIKEY VICTORIA : 04 Visits and Encounters (Known encounters since 04/15/2023. May include lab encounters.) Date Location Provider Type Medical Service 01/18/2024 [facility] Dillon Connolly MD [facility] 12/21/2023 [facility] Pamela Hill APRN [facility] 12/07/2023 [facility] -- Clinic [facility] 12/03/2023 Sofia Nance MD Inpatient Inpatient 12/03/2023 Sofia Connolly MD Inpatient Inpatient 12/03/2023 4 Javier Nance MD Clinic Clinic 12/03/2023 [facility] Javier Nance MD Outpatient 12/01/2023 4 Javier Nance MD Clinic Clinic 11/25/2023 [facility] -- Between Visit -- 11/24/2023 1 Eli Osorio APRN Clinic Clinic 11/24/2023 T2 Javier Nance MD Clinic Clinic 11/18/2023 1 Shashank Ling MD Clinic Clinic 11/09/2023 [facility] Pamela Hill APRN Clinic Clinic 11/04/2023 5 Javier Nance MD Clinic Clinic 11/02/2023 [facility] -- Between Visit -- 10/30/2023 Sofia Connolly MD Inpatient Inpatient 10/21/2023 [facility] Shashank Ling MD Clinic Clinic 10/06/2023 [facility] Pamela Hill, [facility] Clinic Clinic 10/06/2023 [facility] Pamela Hill, LUBRICATION SERVICER Outpatient US 09/30/2023 [facility] Pamela Hill, LUBRICATION SERVICER Clinic Clinic 09/17/2023 [facility] Pamela Hill, LUBRICATION SERVICER Clinic Clinic 09/04/2023 [facility] -- Between Visit -- 2023 [facility] Javier Nance MD Outpatient Lab 2023 4 Javier Nance MD Clinic Clinic 08/07/2023 4 Javier Nance MD Clinic Clinic 08/06/2023 [facility] -- Between Visit -- 07/31/2023 [facility] Dillon Connolly MD Outpatient US 07/10/2023 [facility] -- Between Visit -- 07/10/2023 3 Dillon Connolly MD Clinic Clinic 07/10/2023 [facility] Dillon Connolly MD Outpatient US 06/11/2023 [facility] -- Between Visit -- 06/11/2023 [facility] Dillon Connolly MD Outpatient Lab 06/11/2023 T2 Dillon Connolly MD Clinic Clinic 05/14/2023 [facility] Shashank Ling MD Outpatient Lab 05/14/2023 [facility] Shashank Ling MD Outpatient Lab 05/14/2023 3 Shashank Ling MD Clinic Clinic 04/15/2023 4 Javier Nance MD Clinic Clinic MIKEY VICTORIA ML : 04 Visit / Encounter Location Information The following information represents known location and contact information for locations visitedduring [facility] Business Address: [address] [place] [address] Phone:[phone] (Recurve) [facility] Business Address: [address] [place] [address] Phone: No phone numbers found on file for location MIKEY VICTORIA ML : 04 Visit Diagnosis (Note: All diagnoses [...] mode of transmission (ICD-10-CM: Z11.3, Date: 09/28/99) MIKEY VICTORIA : 04 Delivery Summary Baby A Membrane Status Information [facility] Date/Time: 12/03/23 16:20:00 Amniotic Fluid Color/Description: Clear [...] 1 Minute: 8 Score 5 Minute: 9 Educational Manager: Mor Silva MD Note: Items documented with '--' had no clinical data which qualified at time of report creation END OF REPORT Patient Care team information Care Team Personnel Name: SIERRA GUAJARDO Position: No Access Member Role: Primary Care Physician Address: Address: [address] [address]- [place] Care Team Related Persons Name: FLORESITA VICTORIA Address: Home [address] [phone] [facility]
--- OUTSIDE RECORDS SUMMARY | 2024-05-26 17:15 | XMS_ITS | Continuity of Care Document ---
Author Organization [facility] Ambulatory Clinics Address [address] [place] [address] Care Team Providers Care Nuclear Radiation Engineer Name Role Phone CASANDRA SIERRA Primary Care Physician [phone] Encounter [facility] NBR [id number] Date(s): 10/06/23 - 10/06/23 [facility] Ambulatory Clinics [address] [place], [place] [address] Encounter Diagnosis Encounter for care in third trimester of first (Discharge Diagnosis) - 10/06/23 Discharge Disposition: Home or Self Care Attending Physician: Pamela Hill APRN Allergies, Adverse Reactions, Alerts No Known Allergies Assessment and Plan Future Appointments Appointment Date:10/21/2023 02:30:00 PM Scheduled Provider:Javier Nance MD Location:[facility] Appointment Type:OB Follow Up Medications C-Titus DHA oral capsule 1 cap, Oral, Daily, # 90 cap, 3 Refill(s), Pharmacy: [facility] Start Date: 06/24/23 Status: Ordered Phenergan 12.5 mg oral tablet 12.5 mg = 1 tab, Oral, every 6 hr, PRN as needed for nausea/vomiting, # 30 tab, 1 Refill(s), Pharmacy: [facility] Start Date: 04/15/23 Status: Ordered Tylenol [...] [Reference Range]: 1 Protein Urine Dipstick Trace (10/06/23 1:58 PM) Glucose Urine Dipstick Negative (10/06/23 1:58 PM) Vital Signs Most recent to oldest [Reference Range]: 1 Blood Pressure [90-140/60-90 mmHg] 104/5 8mmHg (10/06/23 1:58 PM) Mean Arterial Pressure, Cuff [70-110 mmH g] 73 mmHg (10/06/23 1:58 PM) Weight 58.2 kg (10/06/23 1:58 PM) Weight Measured (lbs) 128.309 lb (10/06/23 1:58 PM) Weight Dosing 58.200 kg (10/06/23 1:58 PM) [place] Body Weight Calculated 57 kg (10/06/23 1:58 PM) Height 165.10 cm (10/06/23 1:58 PM) Height/Length Measured (inches) 65 inch (10/06/23 1:58 PM) BSA Measured 1.63 m2 (10/06/23 1:58 PM) Body Mass Index 21.35 kg/m2 (10/06/23 1:58 PM) Body Mass Index Percentile 47.23 1 (10/06/23 1:58 PM) Height/Length Percentile 61.15 2 (10/06/23 1:58 PM) Weight Percentile 53.15 3 (10/06/23 1:58 PM) 1Result Comment: ^~:!Percentile Source -CDC 2Result Comment: ^~:!Percentile Source -CDC 3Result Comment: ^~:!Percentile Source -[facility] Social History Social History Type Response Smoking Status Smoking tobacco use: Never tobacco user;Never entered on: 06/11/23 Sex Female Physician Outpatient Note * Pamela Hill APRN: PERFORM Event Display: Office Clinic Note Physician Authored Date: [id number] MIKEY VICTORIA :2005 Age:18 years Sex:Female Visit Date:10/06/2023 Primary Care Physician: YOUNG, SIERRA ANGELIQUE/EGA Gestational Age (EGA) and ANGELIQUE? * Note: EGA calculated as of 10/06/2023 ?? ANGELIQUE:??12/05/2023?EGA*:??31 weeks 3 days ?Type:??Authoritative?Method Date:??04/15/2023 ?Method:??Ultrasound??(04/15/2023) ?Confirmation:??Confirmed [...] spine are not well seen ?Entered by:??Pamela Hill, SCALLOP CUTTER MACHINE on 09/16/2023 ?Method:??Ultrasound ?Method Date:??05/14/2023 ?ANGELIQUE:??12/02/2023 ?EGA (At Entry):??11 weeks 1 days ?Type:??Non-Authoritative ?Comments:??BSUS transabd ?Entered by:??Shashank Ling MD on 05/14/2023 Chief Complaint 31 weeks 3 days. US done for growth before appointment. Discussed Tdap, flu, RSV vaccines. Wonders about painting in the house for baby's room. Chest pain vs indigestion the last 3 days. Info given for breast pump. History of Present Illness OB f/u Physical Exam Vitals & Measurements BP:??104/58?? HT:??165.10??cm?? HT:??61.15??(Percentile)?? WT:??58.2??kg?? WT:??53.15??(Percentile)?? BMI:??21.35?? BMI:??47.23??(Percentile)?? BSA:??1.63?? Risk Factors Risk Factors, Antepartum Current Preg: Other: rubella nonimmune (05/15/23) Assessment/Plan 1.??Encounter for care in third trimester of first ??Z34.03 US today, reviewed pre-montiel, report pending. +FM. No lof/bleeding/ctx. Some GERD. Declines TDAP, discussed RSV vaccine. Ordered: OB Follow Up, 10/06/23 13:00:00 EST, Routine, Reason: growth US, Transport Mode: Ambulatory, Encounter for care in third trimester of first Uterine size-date discrepancy, third trimester, ABN Status: Not Required ?? Cards Exam and Notes ?? Exams and Notes ?? Date:??10/06/23 EGA:??31w3d Weight (lbs kg):??*128... Fundal Height [...] Performed: 05/14/23 Rubella,Transcribed: Nonimmune Electronically Signed on 10/06/23 02:42 PM Pamela Hill APRN Patient Care team information Care Team Personnel Name: SIERRA GUAJARDO Position: No Access Member Role: Primary Care Physician Address: Address: [address] Care Team Related Persons Name: FLORESITA VICTORIA Address: Home [address] [place], [place] [phone] [facility] Name: FLORESITA VICTORIA Address: Home [address] [place], [place] [phone] [place]
--- OUTSIDE RECORDS SUMMARY | 2024-05-26 17:15 | XMS_ITS | Continuity of Care Document ---
Author Organization [facility] Ambulatory Clinics Address [address] [place] [address] Care Team Providers Care Grease Cup Filler Name Role Phone CASANDRA SIERRA Primary Care Physician [phone] Encounter [facility] NBR [id number] Date(s): 06/11/23 - 06/11/23 [facility] Ambulatory Clinics [address] [place] [address]- Encounter Diagnosis Normal first in second trimester(Discharge Diagnosis) - 06/11/23 Rubella non-immune status, antepartum(Discharge Diagnosis) - 06/11/23 Other underimmunization status(Discharge Diagnosis) - 06/11/23 Discharge Disposition: Home or Self Care Attending Physician: Dillon Connolly Allergies, Adverse Reactions, Alerts No Known Allergies Assessment and Plan Future Appointments Appointment Date:07/16/2023 11:15:00 AM Scheduled Provider:Pamela Hill APRN Location:[facility] Appointment Type:OB Follow Up Future Scheduled Tests Radiology* US OB Greater Than 14 Weeks 07/16/23 Medications multivitamin adult, oral tablet 1 tab, Oral, Daily, # 30 tab, 0 Refill(s) Start Date: 04/15/23 Status: Ordered Phenergan 12.5 mg oral tablet 12.5 mg = 1 tab, Oral, every 6 hr, PRN as needed for nausea/vomiting, # 30 tab, 1 Refill(s), Pharmacy: [id number] Start Date: 04/15/23 Status: Ordered Multivitamins [...] [Reference Range]: 1 Protein Urine Dipstick Trace (06/11/23 9:44 AM) Glucose Urine Dipstick Negative (06/11/23 9:44 AM) Urine Color Urine Dipstick Dark yellow (06/11/23 9:44 AM) Urine Appearance Urine Dipstick Slightly cloudy (06/11/23 9:44 AM) Vital Signs Most recent to oldest [Reference Range]: 1 2 Blood Pressure [90-140/60-90 mmHg] 98/62 mmHg (06/11/23 9:44 AM) Weight 51.0 kg (06/11/23 9:44 AM) Weight Measured (lbs) 112.436 lb (06/11/23 9:44 AM) [place] Body Weight Calculated 57 kg (06/11/23 9:44 AM) Height 165.10 cm (06/11/23 9:44 AM) Height/Length Measured (inches) 65 inch (06/11/23 9:44 AM) BSA Measured 1.53 m2 (06/11/23 9:44 AM) Body Mass Index 18.71 kg/m2 (06/11/23 9:44 AM) 18.71 kg/m2 (06/11/23 9:44 AM) Body Mass Index Percentile 13.44 1 (06/11/23 9:44 AM) Height/Length Percentile 61.36 2 (06/11/23 9:44 AM) Weight Percentile 22.20 3 (06/11/23 9:44 AM) 1Result Comment: ^~:!Percentile Source -CDC 2Result Comment: ^~:!Percentile Source -CDC 3Result Comment: ^~:!Percentile Source -CDC Social History Social History Type Response Smoking Status Smoking tobacco use: Never tobacco user;Never entered on: 06/11/23 Sex Female Note * Alissa Das: PERFORM Event Display: OB Note Authored Date: [id number] Transcribed Labs Entered On: 06/09/2023 13:09 EDT Performed On: 06/09/2023 13:06 EDT by Alissa Das Transcribed Labs Blood Type, Transcribed : A positive Rubella,Transcribed : Nonimmune Rubella Date Performed : 05/14/2023 EDT Hepatitis B, Transcribed : Negative Hepatitis B Date Performed : 05/14/2023 EDT HIV Antibodies, Transcribed : Negative HIV Date Performed : 05/14/2023 EDT RPR, Transcribed : Negative RPR Date Performed : 05/14/2023 EDT Chlamydia Date Performed : 05/14/2023 EDT Gonorrhea Date Performed : 05/14/2023 EDT Chlamydia, Transcribed : Negative Gonorrhea, Transcribed : Negative ABS, Transcribed : Negative ABS Date Performed : 05/14/2023 EDT Genetic Testing Date Performed : 05/14/2023 EDT Genetic Testing, Transcribed : Yes Genetic Testing, Results Text : Inheritest: negative MaterniT 21: negative Alissa Das - 06/09/2023 13:06 EDT Electronically Signed on 06/09/2023 01:06 PM Alissa Das Physician Outpatient Note * Dillon Connolly P: PERFORM Event Display: Office Clinic Note Physician Authored Date: [id number] MIKEY VICTORIA :2005 Age:17 years Sex:Female Visit Date:06/11/2023 Primary Care Physician: SIERRA GUAJARDO ANGELIQUE/EGA Gestational Age (EGA) and ANGELIQUE? * Note: EGA calculated as of 06/11/2023 ?? ANGELIQUE:??12/05/2023?EGA*:??14 weeks 5 days ?Type:??Authoritative?Method Date:??04/15/2023 ?Method:??Ultrasound??(04/15/2023) ?Confirmation:??Confirmed ?Description:??-- ?Comments:??-- ?Entered by:??Shashank Ling MD on 05/14/2023? Other ANGELIQUE Calculations for this : ?Method:??Ultrasound ?Method Date:??05/14/2023 ?ANGELIQUE:??12/02/2023 ?EGA (At Entry):??11 weeks 1 days ?Type:??Non-Authoritative ?Comments:??BSUS transabd ?Entered by:??Shashank Ling MD on 05/14/2023 Chief Complaint OB ??follow appointment, 14.5 weeks, no concerns, clean catch obtained today Physical Exam Vitals & Measurements BP:??98/62?? HT:??165.10??cm?? HT:??61.36??(Percentile)?? WT:??51.0??kg?? WT:??22.20??(Percentile)?? BMI:??18.71?? BMI:??18.71?? BMI:??13.44??(Percentile)?? BSA:??1.53?? Risk Factors Risk Factors, Antepartum Current Preg: Other: rubella nonimmune (05/15/23) Assessment/Plan 1.??Normal first in second trimester??Z34.02 Ordered: US OB Greater Than 14 Weeks, 06/11/23, Routine, Reason: anatomy, Transport Mode: Ambulatory, Normalfirst in second trimester ?? 2.??Rubella non-immune status, antepartum??O09.899 ?? Other underimmunization status??Z28.39 ?? Pt well. ??Still has some N/V but much improved.?? She is??taking vitamins. ??There is some cramping and occasional loose stools. ??No vaginal bleeding.?? We reviewed her lab work and scheduled??second Trimester??US for her next appointment. Cards Exam and Notes ?? Exams and Notes ?? Date:??06/11/23 EGA:??14w5d Weight (lbs kg):??*112... Fundal Height (cm):??14 ? Blood Pressure (mmHg):??98/62 ? Cervix Exam (Dil cm/Eff %/Sta -):--/--/--?? Labor S/S:??None Urine Glucose:?? Urine Protein:?? Next Visit:??+5 weeks from 06/11/2023 Baby A?FHR:??154 [...] History ???Extraction of wisdom tooth (2021) Medications multivitamin adult, oral tablet, 1 tab, Oral, Daily Phenergan 12.5 mg oral tablet, 12.5 mg= 1 tab, Oral, every 6 hr, PRN, 1 refills Multivitamins Tylenol 325 mg oral capsule, [...] Performed: 05/14/23 Rubella,Transcribed: Nonimmune Electronically Signed on 06/11/23 10:18 AM Dillon Connolly Patient Care team information Care Team Personnel Name: SIERRA GUAJARDO Position: No Access Member Role: Primary Care Physician Address: Address: [address] [address] [place] Care Team Related Persons Name: FLORESITA VICTORIA Address: Home [address] [place], [place] [phone] [facility] Name: FLORESITA VICTORIA Address: Home [address] [place], [place] [id number] [facility]
--- OUTSIDE RECORDS SUMMARY | 2024-05-26 17:15 | XMS_ITS | Continuity of Care Document ---
Author Organization [facility] Ambulatory Clinics Address [address] [place] [address] Care Team Providers Care Batter Mixer Helper Name Role Phone SKYLER GUAJARDOY Primary Care Physician Encounter [facility] NBR [id number] Date(s): 11/18/23 - 11/18/23 [facility] Ambulatory Clinics [address] [place], [place] [address] Encounter Diagnosis Encounter for care in third trimester of first (Discharge Diagnosis) - 11/18/23 Rubella non-immune status, antepartum(Discharge Diagnosis) - 11/18/23 Other underimmunization status(Discharge Diagnosis) - 11/18/23 Discharge Disposition: Home or Self Care Attending Physician: Shashank Ling MD Allergies, Adverse Reactions, Alerts No Known Allergies Assessment and Plan Extracted from: Title:OB Office Visit Note Author:Shashank Ling MD Date:11/18/23 1.??Encounter for c are in third trimester of first ??Z34.03 No issues.?? Feels vtx. 2.??Rubella non-immune status, antepartum??O09.899 Other underimmunization status??Z28.39 Future Appointments Appointment Date:11/24/2023 01:30:00 PM Scheduled Provider:Javier Nance MD Location:[facility] Appointment Type:OB Follow Up Appointment Date:12/03/2023 02:00:00 PM Scheduled Provider:Dillon Connolly MD Location:[facility] Appointment Type:OB Follow Up Appointment Date:12/07/2023 02:30:00 PM Scheduled Provider:Dillon Connolly MD Location:[facility] Appointment Type:OB Follow Up Medications C-Titus DHA oral capsule 1 cap, Oral, Daily, # 90 cap, 3 Refill(s), Pharmacy: [facility] Start Date: 06/24/23 Status: Ordered NIFEdipine 10 mg oral capsule 10 mg = 1 cap, Oral, every 6 hr, 0 Refill(s) Start Date: 10/31/23 Status: Ordered Phenergan 12.5 mg oral tablet 12.5 mg = 1 tab, Oral, every 6 hr, PRN as needed for nausea/vomiting, # 30 tab, 1 Refill(s), Pharmacy: [facility] Start Date: 04/15/23 Status: Ordered Tylenol [...] Range]: 1 Blood Pressure [90-140/60-90 mmHg] 104/6 6mmHg (11/18/23 3:24 PM) Mean Arterial Pressure, Cuff [65-140 mmH g] 79 mmHg (11/18/23 3:24 PM) Weight 62.6 kg (11/18/23 3:24 PM) Weight Measured (lbs) 138.009 lb (11/18/23 3:24 PM) Weight Dosing 62.600 kg (11/18/23 3:24 PM) [place] Body Weight Calculated 57 kg (11/18/23 3:24 PM) Height 165.1 cm (11/18/23 3:24 PM) Height/Length Measured (inches) 65 inch (11/18/23 3:24 PM) BSA Measured 1.69 m2 (11/18/23 3:24 PM) Body Mass Index 22.97 kg/m2 (11/18/23 3:24 PM) Body Mass Index Percentile 65.07 1 (11/18/23 3:24 PM) Height/Length Percentile 61.10 2 (11/18/23 3:24 PM) Weight Percentile 68.45 3 (11/18/23 3:24 PM) 1Result Comment: ^~:!Percentile Source -[facility] 2Result Comment: ^~:!Percentile Source -[facility] 3Result Comment: ^~:!Percentile Source -[facility] Social History Social History Type Response Smoking Status Smoking tobacco use: Never tobacco user;Never entered on: 06/11/23 Sex Female Physician Outpatient Note * Shashank Ling MD: PERFORM Event Display: Office Clinic Note Physician Authored Date: [id number] MIKEY VICTORIA ML :2005 Age:18 years Sex:Female Visit Date:11/18/2023 Primary Care Physician: SIERRA GUAJARDO ANGELIQUE/EGA Gestational Age (EGA) and ANGELIQUE? * Note: EGA calculated as of 11/18/2023 ?? ANGELIQUE:??12/05/2023?EGA*:??37 weeks 4 days ?Type:??Authoritative?Method Date:??04/15/2023 ?Method:??Ultrasound??(04/15/2023) ?Confirmation:??Confirmed [...] Complaint OB follow-up History of Present Illness No issues.?? GBS neg reviewed Physical Exam Vitals & Measurements BP:??104/66?? HT:??165.1??cm?? HT:??61.10??(Percentile)?? WT:??62.6??kg?? WT:??68.45??(Percentile)?? BMI:??22.97?? BMI:??65.07??(Percentile)?? BSA:??1.69?? Risk Factors Risk Factors, Antepartum Current Preg: Other: 10/06/2023 growth US NI 8.7cm, 1776 grams, 40th percentile (10/06/23) Risk Factors, Antepartum Current Preg: Other: rubella nonimmune (05/15/23) Assessment/Plan 1.??Encounter for care in third trimester of first ??Z34.03 No issues.?? Feels vtx. 2.??Rubella non-immune status, antepartum??O09.899 Other underimmunization status??Z28.39 Cards Exam and Notes ?? Exams and Notes ?? Date:??11/18/23 EGA:??37w4d Weight (lbs kg):??*138... Fundal Height (cm):??37 ? Blood Pressure (mmHg):??104/66 ? Cervix Exam (Dil cm/Eff %/Sta -):--/--/--?? Labor S/S:?? Urine Glucose:?? Urine Protein:?? Next Visit:??+1 weeks from 11/18/2023 Baby A?FHR:??135 ? Movement:??Present per patient ?Presentation:??Vertex ? Date:??11/09/23 EGA:??36w2d Weight (lbs kg):??*134... Fundal Height (cm):??36 ? Blood Pressure (mmHg):??94/58 ? Cervix Exam (Dil cm/Eff %/Sta -):--/--/--?? Labor S/S:?? Urine Glucose:??Negative Urine Protein:??Trace Next Visit:??+1 weeks from 11/09/2023 Baby A?FHR:??140 ? Movement:??Present per patient ?Presentation:??Vertex ? Date:??11/04/23 EGA:??35w4d Weight (lbs kg):??*136... Fundal Height (cm):??35 ? Blood Pressure (mmHg):??100/64 ? Cervix Exam (Dil cm/Eff %/Sta -):--/--/--?? Labor S/S:?? Urine Glucose:??Negative Urine Protein:??Trace Next Visit:??+1 weeks from 11/04/2023 Baby A?FHR:??136 ? Movement:??Present per patient ?Presentation:??Vertex ? Date:??10/31/23 EGA:??35w0d Weight (lbs kg):??*130... Fundal Height [...] Performed: 05/14/23 Rubella,Transcribed: Nonimmune Electronically Signed on 11/18/23 03:49 PM Shashank Ling MD Patient Care team information Care Team Personnel Name: SIERRA GUAJARDO Position: No Access Member Role: Primary Care Physician Address: Address: [address] [address] Care Team Related Persons Name: FLORESITA VICTORIA Address: Home [address] [phone] [facility]
--- OUTSIDE RECORDS SUMMARY | 2024-05-26 17:15 | XMS_ITS | Continuity of Care Document ---
Author Organization [facility] Ambulatory Clinics Address [address] [place] [address] Care Team Providers Care Engraver Tender Name Role Phone SIERRA GUAJARDO Primary Care Physician [phone] Encounter [facility] NBR [id number] Date(s): 10/21/23 - 10/21/23 [facility] Ambulatory Clinics [address] [place], [place] [address] Encounter Diagnosis Supervision of normal first in third trimester(Discharge Diagnosis) - 10/21/23 Discharge Disposition: Home or Self Care Attending Physician: Shashank Ling MD Allergies, Adverse Reactions, Alerts No Known Allergies Assessment and Plan Extracted from: Title:OB Office Visit Note Author:Shashank Ling MD Date:10/21/23 Supervision of normal first in third trimester??Z34.03 No issues.?? Future Appointments Appointment Date:11/04/2023 02:45:00 PM Scheduled Provider:Javier Nance MD Location:[facility] Appointment Type:OB Follow Up Medications C-Titus DHA oral capsule 1 cap, Oral, Daily, # 90 cap, 3 Refill(s), Pharmacy: [facility] Start Date: 06/24/23 Status: Ordered Phenergan 12.5 mg oral tablet 12.5 mg = 1 tab, Oral, every 6 hr, PRN as needed for nausea/vomiting, # 30 tab, 1 Refill(s), Pharmacy: [facility] Start Date: 04/15/23 Status: Ordered [...] [Reference Range]: 1 Protein Urine Dipstick Trace (10/21/23 3:48 PM) Glucose Urine Dipstick Negative (10/21/23 3:48 PM) Urine Color Urine Dipstick Dark yellow (10/21/23 3:48 PM) Urine Appearance Urine Dipstick Cloudy (10/21/23 3:48 PM) Vital Signs Most recent to oldest [Reference Range]: 1 Blood Pressure [90-140/60-90 mmHg] 106/6 0mmHg (10/21/23 2:25 PM) Mean Arterial Pressure, Cuff [70-110 mmH g] 75 mmHg (10/21/23 2:25 PM) Weight 59.0 kg (10/21/23 2:25 PM) Weight Measured (lbs) 130.073 lb (10/21/23 2:25 PM) Weight Dosing 59.000 kg (10/21/23 2:25 PM) Weight Percentile 56.35 1 (10/21/23 2:25 PM) 1Result Comment: ^~:!Percentile Source -[facility] Social History Social History Type Response Smoking Status Smoking tobacco use: Never tobacco user;Never entered on: 06/11/23 Sex Female Physician Outpatient Note * Shashank Ling MD: PERFORM Event Display: Office Clinic Note Physician Authored Date: [id number] MIKEY VICTORIA :2005 Age:18 years Sex:Female Visit Date:10/21/2023 Primary Care Physician: SIERRA GUAJARDO ANGELIQUE/JIMENA Gestational Age (EGA) and ANGELIQUE? * Note: EGA calculated as of 10/21/2023 ?? ANGELIQUE:??12/05/2023?EGA*:??33 weeks 4 days ?Type:??Authoritative?Method Date:??04/15/2023 ?Method:??Ultrasound??(04/15/2023) ?Confirmation:??Confirmed [...] MD on 05/14/2023 Chief Complaint OB FU 33wks,4d. History of Present Illness No issues.?? Baby is active. Physical Exam Vitals & Measurements BP:??106/60?? WT:??56.35??(Percentile)?? WT:??59.0??kg?? Risk Factors Risk Factors, Antepartum Current Preg: Other: 10/06/2023 growth US NI 8.7cm, 1776 grams, 40th percentile (10/06/23) Risk Factors, Antepartum Current Preg: Other: rubella nonimmune (05/15/23) Assessment/Plan Supervision of normal first in third trimester??Z34.03 No issues.?? Cards Exam and Notes ?? Exams and Notes ?? Date:??10/21/23 EGA:??33w4d Weight (lbs kg):??*130... Fundal Height (cm):??32 ? Blood Pressure (mmHg):??106/60 ? Cervix Exam (Dil cm/Eff %/Sta -):--/--/--?? Labor S/S:?? Urine Glucose:?? Urine Protein:?? Next Visit:??+2 weeks from 10/21/2023 Baby A?FHR:??145 [...] Performed: 05/14/23 Rubella,Transcribed: Nonimmune Electronically Signed on 10/21/23 03:25 PM Shashank Ling MD Patient Care team information Care Team Personnel Name: SIERRA GUAJARDO Position: No Access Member Role: Primary Care Physician Address: Address: [address] [address] Care Team Related Persons Name: FLORESITA VICTORIA Address: Home [address] [place], [place] [phone] [facility] Name: FLORESITA VICTORIA Address: Home [address] [place], [place] [phone] [facility]
--- OUTSIDE RECORDS SUMMARY | 2024-05-26 17:15 | XMS_ITS | Continuity of Care Document ---
Author Organization [facility] Ambulatory Clinics Address [address] [place] [address] Care Team Providers Care Operation Supervisor Name Role Phone SIERRA GUAJARDO Primary Care Physician [phone] Encounter [facility] NBR [id number] Date(s): 09/04/23 - 09/04/23 [facility] Ambulatory Clinics [address] [place], [place] [address] Discharge Disposition: Home Allergies, Adverse Reactions, Alerts No Known Allergies Assessment and Plan Future Appointments Appointment Date:09/17/2023 02:00:00 PM Scheduled Provider:Pamlea Hill APRN Location:[facility] Appointment Type:OB Follow Up Medications C-Titus DHA oral capsule 1 cap, Oral, Daily, # 90 cap, 3 Refill(s), Pharmacy: [facility] Start Date: 06/24/23 Status: Ordered Phenergan 12.5 mg oral tablet 12.5 mg = 1 tab, Oral, every 6 hr, PRN as needed for nausea/vomiting, # 30 tab, 1 Refill(s), Pharmacy: [facility] Start Date: 04/15/23 Status: Ordered [...] Role: Primary Care Physician Address: Address: [phone] [place] [address] Care Team Related Persons Name: FLORESITA VICTORIA Address: Home [address] [phone] [facility] Name: FLORESITA VICTORIA Address: Home [address] [facility] [address] [place] [phone] [facility]
--- OUTSIDE RECORDS SUMMARY | 2024-05-26 17:15 | XMS_ITS | Continuity of Care Document ---
Author Organization [facility] Address [address] [place] [address] Care Team Providers Care Category Specialist Name Role Phone SIERRA GUAJARDO Primary Care Physician Encounter [facility] NBR [id number] Date(s): 06/11/23 - 06/11/23 [facility] [address] [place] [address]- [place] Encounter Diagnosis Normal first in second trimester(Discharge Diagnosis) - 06/11/23 Discharge Disposition: Home or Self Care Attending Physician: Dillon Connolly Admitting Physician: Dillon Connolly Allergies, Adverse Reactions, Alerts No Known Allergies Assessment and Plan Future Appointments Appointment Date:07/16/2023 11:15:00 AM Scheduled Provider:Pamela Hill APRN Location:[facility] Appointment Type:OB Follow Up Future Scheduled Tests Radiology* US OB Greater Than 14 Weeks 07/16/23 Medications multivitamin adult, oral tablet 1 tab, Oral, Daily, # 30 tab, 0 Refill(s) Start Date: 04/15/23 Status: Ordered Phenergan 12.5 mg oral tablet 12.5 mg = 1 tab, Oral, every 6 hr, PRN as needed for nausea/vomiting, # 30 tab, 1 Refill(s), Pharmacy: [id number] Start Date: 04/15/23 Status: Ordered Multivitamins [...] wisdom tooth 2021 Completed 1X 4 Results Orders for Microbiology Reports Name Date Urine Culture 06/11/23 Microbiology Reports TEST:Urine Culture STATUS:Order in Progress BODY SITE: SOURCE:Urine, Clean Catch COLLECTED DATE/TIME:06/11/23 9:45 AM PRELIMINARY REPORT No growth of uropathogens Social History Social History Type Response Smoking Status Smoking tobacco use: Never tobacco user;Never entered on: 06/11/23 Sex Female Patient Care team information Care Team Personnel Name: SIERRA GUAJARDO Position: No Access Member Role: Primary Care Physician Address: Address: [address] Care Team Related Persons Name: FLORESITA VICTORIA Address: Home [address] [place], [place] [id number] [facility] Name: FLORESITA VICTORIA Address: Home [address] [place], [place] [id number] [facility]
--- OUTSIDE RECORDS SUMMARY | 2024-05-26 17:15 | XMS_ITS | Continuity of Care Document ---
Author Organization [facility] Address [address] [place] [address] Care Team Providers Care Hydraulic Tester Name Role Phone CASANDRA SIERRA Primary Care Physician [phone] Encounter [facility] NBR [id number] Date(s): 11/24/23 - 11/24/23 [facility] [address] [place] [address]- Encounter Diagnosis Flu(Discharge Diagnosis) - 11/24/23 38 weeks gestation of (Final) - Influenza due to unidentified influenza virus with other respiratory manifestations(Final) - Discharge Disposition: Home or Self Care Attending Physician: Eli Osorio APRN Admitting Physician: Eli Osorio APRN Allergies, Adverse Reactions, Alerts No Known Allergies Assessment and Plan Extracted from: Title:Office Visit Note Author:Sofia Shannon PRChristian Date:11/24/23 1.??Flu??J11.1 Future Appointments Appointment Date:12/03/2023 08:00:00 AM Scheduled Provider:Javier Nance MD Location:[facility] Appointment Type:OB Follow Up Appointment Date:12/07/2023 02:30:00 PM Scheduled Provider:Dillon Connolly MD Location:[facility] Appointment Type:OB Follow Up Future Scheduled Tests Radiology* US OB Follow Up 12/03/23 Medications C-Titus DHA oral capsule 1 cap, Oral, Daily, # 90 cap, 3 Refill(s), Pharmacy: [id number] Start Date: 06/24/23 Status: Ordered NIFEdipine 10 mg oral capsule 10 mg = 1 cap, Oral, every 6 hr, 0 Refill(s) Start Date: 10/31/23 Status: Ordered Phenergan 12.5 mg oral tablet 12.5 mg = 1 tab, Oral, every 6 hr, PRN as needed for nausea/vomiting, # 30 tab, 1 Refill(s), Pharmacy: [id number] Start Date: 04/15/23 Status: Ordered Tylenol [...] 1X 4 Results Laboratory List Name Date Influenza A/B (Ibeth) POCT 11/24/23 Most recent to oldest [Reference Range]: 1 Influenza A (Ibeth) POCT [Negative] Nega tive (11/24/23 3:22 PM) Influenza B (Ibeth) POCT [Negative] Posi tive *ABN* (11/24/23 3:22 PM) Vital Signs Most recent to oldest [Reference Range]: 1 Temperature Tympanic [36.6-38.1 Deg C] 3 6.7 Deg C (11/24/23 2:59 PM) Peripheral Pulse Rate [60-100 bpm] 100 b pm (11/24/23 2:59 PM) Respiratory Rate [12-24 br/min] 18 br/mi n (11/24/23 2:59 PM) Blood Pressure [90-140/60-90 mmHg] 113/7 5mmHg (11/24/23 2:59 PM) Mean Arterial Pressure, Cuff [65-140 mmH g] 88 mmHg (11/24/23 2:59 PM) Weight 60.33 kg (11/24/23 2:59 PM) Weight Measured (lbs) 133.005 lb (11/24/23 2:59 PM) Weight Dosing 60.330 kg (11/24/23 2:59 PM) Weight Percentile 60.96 1 (11/24/23 2:59 PM) 1Result Comment: ^~:!Percentile Source -[facility] Social History Social History Type Response Smoking Status Smoking tobacco use: Never tobacco user;Never entered on: 06/11/23 Sex Female Hospital Discharge Instructions Patient Education 11/24/2023 14:19:21 Influenza, Adult Influenza, Adult Influenza, also called the flu, is a viral infection that mainly affects the respiratory tract. This includes the lungs, nose, and throat. The flu spreads easily from person to person (is contagious). It causes common cold symptoms, along with high fever and body aches. What are the causes? This condition is caused by the influenza virus. You can get the virus by: ??? Breathing in droplets that are in the air from an infected person's cough or sneeze. ??? Touching something that has the virus on it (has been contaminated) and then touching your mouth, nose, or eyes. What increases the risk? The following factors may make you more likely to get the flu: ??? Not washing or sanitizing your hands often. ??? Having close contact with many people during cold and flu season. ??? Touching your mouth, eyes, or nose without first washing or sanitizing your hands. ??? Not getting an annual flu shot. You may have a higher risk for the flu, including serious problems, such as a lung infection (pneumonia), if you: ??? Are older than 65. ??? Are . ??? Have a weakened disease-fighting system (immune system). This includes people who have HIV or AIDS, are on chemotherapy, or are taking medicines that reduce (suppress) the immune system. ??? Have a long-term (chronic) illness, such as heart disease, kidney disease, diabetes, or lung disease. ??? Have a liver disorder. ??? Are severely overweight (morbidly obese). ??? Have anemia. ??? Have asthma. What are the signs or symptoms? Symptoms of this condition usually begin suddenly and last 4???14 days. These may include: ??? Fever and chills. ??? Headaches, body aches, or muscle aches. ??? Sore throat. ??? Cough. ??? Runny or stuffy (congested) nose. ??? Chest discomfort. ??? Poor appetite. ??? Weakness or fatigue. ??? Dizziness. ??? Nausea or vomiting. How is this diagnosed? This condition may be diagnosed based on: ??? Your symptoms and medical history. ??? A physical exam. ??? Swabbing your nose or throat and testing the fluid for the influenza virus. How is this treated? If the flu is diagnosed early, you can be treated with antiviral medicine that is given by mouth (orally) or through an IV. This can help reduce how severe the illness is and how long it lasts. Taking care of yourself at home can help relieve symptoms. Your health care provider may recommend: ??? Taking eiio-usu-rctnusp medicines. ??? Drinking plenty of fluids. In many cases, the flu goes away on its own. If you have severe symptoms or complications, you may be treated in a hospital. Follow these instructions at home: Activity ??? Rest as needed and get plenty of sleep. ??? Stay home from work or school as told by your health care provider. Unless you are visiting your health care provider, avoid leaving home until your fever has been gone for 24 hours without taking medicine. Eating and drinking ??? Take an oral rehydration solution (ORS). This is a drink that is sold at pharmacies and retail stores. ??? Drink enough fluid to keep your urine pale yellow. ??? Drink clear fluids in small amounts as you are able. Clear fluids include water, ice chips, fruit juice mixed with water, and low-calorie sports drinks. ??? Eat bland, whmj-fg-brkdxc foods in small amounts as you are able. These foods include bananas, applesauce, rice, lean meats, toast, and crackers. ??? Avoid drinking fluids that contain a lot of sugar or caffeine, such as energy drinks, regular sports drinks, and soda. ??? Avoid alcohol. ??? Avoid spicy or fatty foods. General instructions ??? Take tbej-syo-iwzgrqg and prescription medicines only as told by your health care provider. ??? Use a cool mist humidifier to add humidity to the air in your home. This can make it easier to breathe. ??? When using a cool mist humidifier, clean it daily. Empty the water and replace it with clean water. ??? Cover your mouth and nose when you cough or sneeze. ??? Wash your hands with soap and water often and for at least 20 seconds, especially after you cough or sneeze. If soap and water are not available, use alcohol-based hand teradata developer. ??? Keep all follow-up visits. This is important. How is this prevented? Get an annual flu shot. This is usually available in late summer, fall, or winter. Ask your health care provider when you should get your flu shot. ??? Avoid contact with people who are sick during cold and flu season. This is generally fall and winter. Contact a health care provider if: ??? You develop new symptoms. ??? You have: ??? Chest pain. ??? Diarrhea. ??? A fever. ??? Your cough gets worse. ??? You produce more mucus. ??? You feel nauseous or you vomit. Get help right away if you: ??? Develop shortness of breath or have difficulty breathing. ??? Have skin or nails that turn a bluish color. ??? Have severe pain or stiffness in your neck. ??? Develop a sudden headache or sudden pain in your face or ear. ??? Cannot eat or drink without vomiting. These symptoms may represent a serious problem that is an emergency. Do not wait to see if the symptoms will go away. Get medical help right away. Call your local emergency services (911 in the [place] Do not drive yourself to the hospital. Summary ??? Influenza, also called the flu, is a viral infection that primarily affects your respiratory tract. ??? Symptoms of the flu usually begin suddenly and last 4???14 days. ??? Getting an annual flu shot is the best way to prevent getting the flu. ??? Stay home from work or school as told by your health care provider. Unless you are visiting your health care provider, avoid leaving home until your fever has been gone for 24 hours without taking medicine. ??? Keep all follow-up visits. This is important. This information is not intended to replace advice given to you by your health care provider. Make sure you discuss any questions you have with your health care provider. Document Revised: 05/03/2021 Document Reviewed: 05/03/2021 Elsevier Patient Education ?? 2022 [email or web address]. Physician Outpatient Note * Eli Osorio, TRADE ECONOMIST: PERFORM Event Display: Office Clinic Note Physician Authored Date: [id number] MIKEY VICTORIA :2005 Age:18 years Sex:Female Visit Date:11/24/2023 Primary Care Physician: SIERRA GUAJARDO Chief Complaint since Sat, fevers, chills, achiness, body aches, cough. 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 She reports that she began with symptoms on Thursday. Review of Systems see hpi Physical Exam Vitals & Measurements T:??36.7?C ??(Tympanic)?? HR:??100??(Peripheral)?? RR:??18?? BP:??113/75?? SpO2:??98%?? WT:??60.33??kg?? WT:??60.96??(Percentile)?? Pain Score:??8?? General: Well-appearing, no acute distress, alert and oriented x3. Skin: No concerning lesions in examined areas. Head: Normal cephalic without trauma or injury. Neck: Supple, nontender, normal range of motion Eye: Pupils reactive. ??Conjunctiva clear. Sclera nonicteric. ??No swelling, obvious foreign bodies. ??Extraocular movement intact. ENT ear: Normal external, canal clear, TMs normal bilaterally. ??Nose: No discharge, normal mucosa,no swelling. ??Sinuses: Nontender to percussion. ??Oropharynx: Normal external, mucosal without mass, lesions, ulcerations.?No erythema, exudate, lesions, uvula midline. Cardiovascular: Regular rate and rhythm. ??No murmur, rubs, or gallops. Respiratory: Clear to auscultation bilaterally. ??No wheezes, rales, rhonchi. Medical Decision Making: Patient was evaluated for upper respiratory symptoms. ??Physical exam is unremarkable, vital signs were obtained and reviewed. ??Flu positive. patient will be discharged home with instruction on home care and with viral syndrome, Tylenol painor fever, increase fluid intake, provide rest. ??Follow-up with primary care for lack of improvement. ??Seek urgent and/or emergent care for increased shortness of breath, fever, worsening cough or any other worsening or concerning symptoms. Assessment/Plan 1.??Flu??J11.1 Patient Education Influenza, Adult Problem List/Past Medical History Ongoing Encounter for [...] (M) and Grandmother (P). Electronically Signed on 11/24/23 03:25 PM Eli Osorio, ARIANNA Outpatient Summary note * Eli Osorio APRN: PERFORM Event Display: Ambulatory Patient Summary Authored Date: [id number] MIKEY VICTORIA :2005 Age:18 years Sex:Female Visit Date:11/24/2023 Primary Care Physician: SIERRA GUAJARDO Ambulatory Visit Instructions We would like to thank you for allowing us to assist you with your healthcare needs. The following includes patient education materials and information regarding your injury/illness. Your Next Steps Scheduled Future Appointments 2023 7:00 AM EST ?? Where: [facility] Diagnostic Imaging Status: Confirmed 2023 8:00 AM EST ?? With: Javier Nance MD Where: [facility] Women's Health Status: Confirmed Thursday 2:30 PM EDT ?? With: Dillon Connolly MD Where: [facility] Women's Health Status: Confirmed Medications What How Much When Instructions Unchanged acetaminophen (Tylenol 325 mg oral capsule) 1 Capsules Oral (given by mouth) Every 4 hours as needed for as needed for pain Unchanged ascorbic acid (Vitamin C 500 mg oral tablet) 1 tab Oral (given by mouth) Every day Unchanged multivitamin, (C-Titus DHA oral capsule) 1 Capsules Oral (given by mouth) Every day Unchanged NIFEdipine (NIFEdipine 10 mg oral capsule) 1 Capsules Oral (given by mouth) Every 6 hours Unchanged promethazine (Phenergan 12.5 mg oral tablet) 1 tab Oral (given by mouth) Every 6 hours as needed for as needed for nausea/vomiting Your Summary Your Diagnosis Flu Problems Ongoing - Any problem that you are currently receiving treatment for. Encounter for care in third trimester of first labor Rubella non-immune status, antepartum Uterine size-date discrepancy, third trimester Historical - Any problem that you are no longer receiving treatment for. Breech presentation Your Care Team Admitting Physician - Eli Osorio APRN Attending Physician - Eli Osorio APRN Primary Care Physician - SIERRA GUAJARDO Discharge Vitals Temperature??(Tympanic) 98.1 ??F (36.7 ??C) Heart Rate??(Peripheral) 100 Respiratory Rate?? 18 Blood Pressure?? 113/75?? Weight?? 133.03 lb (60.33 kg) Allergies No Known Allergies Education Materials Influenza, Adult Influenza, also called the flu, is a viral infection that mainly affects the respiratory tract. This includes the lungs, nose, and throat. The flu spreads easily from person to person (is contagious). It causes common cold symptoms, along with high fever and body aches. What are the causes? This condition is caused by the influenza virus. You can get the virus by: ? Breathing in droplets that are in the air from an infected person's cough or sneeze. ? Touching something that has the virus on it (has been contaminated) and then touching your mouth, nose, or eyes. What increases the risk? The following factors may make you more likely to get the flu: ? Not washing or sanitizing your hands often. ? Having close contact with many people during cold and flu season. ? Touching your mouth, eyes, or nose without first washing or sanitizing your hands. ? Not getting an annual flu shot. You may have a higher risk for the flu, including serious problems, such as a lung infection (pneumonia), if you: ? Are older than 65. ? Are . ? Have a weakened disease-fighting system (immune system). This includes people who have HIV or AIDS,are on chemotherapy, or are taking medicines that reduce (suppress) the immune system. ? Have a long-term (chronic) illness, such as heart disease, kidney disease, diabetes, or lung disease. ? Have a liver disorder. ? Are severely overweight (morbidly obese). ? Have anemia. ? Have asthma. What are the signs or symptoms? Symptoms of this condition usually begin suddenly and last 4???14 days. These may include: ? Fever and chills. ? Headaches, body aches, or muscle aches. ? Sore throat. ? Cough. ? Runny or stuffy (congested) nose. ? Chest discomfort. ? Poor appetite. ? Weakness or fatigue. ? Dizziness. ? Nausea or vomiting. How is this diagnosed? This condition may be diagnosed based on: ? Your symptoms and medical history. ? A physical exam. ? Swabbing your nose or throat and testing the fluid for the influenza virus. How is this treated? If the flu is diagnosed early, you can be treated with antiviral medicine that is given by mouth (orally) or through an IV. This can help reduce how severe the illness is and how long it lasts. Taking care of yourself at home can help relieve symptoms. Your health care provider may recommend: ? Taking evuc-igv-eawsqeg medicines. ? Drinking plenty of fluids. In many cases, the flu goes away on its own. If you have severe symptoms or complications, you may be treated in a hospital. Follow these instructions at home: Activity ? Rest as needed and get plenty of sleep. ? Stay home from work or school as told by your health care provider. Unless you are visiting your health care provider, avoid leaving home until your fever has been gone for 24 hours without taking medicine. Eating and drinking ? Take an oral rehydration solution (ORS). This is a drink that is sold at pharmacies and retail stores. ? Drink enough fluid to keep your urine pale yellow. ? Drink clear fluids in small amounts as you are able. Clear fluids include water, ice chips, fruit juice mixed with water, and low-calorie sports drinks. ? Eat bland, xppe-df-zhmzgg foods in small amounts as you are able. These foods include bananas, applesauce, rice, lean meats, toast, and crackers. ? Avoid drinking fluids that contain a lot of sugar or caffeine, such as energy drinks, regular sports drinks, and soda. ? Avoid alcohol. ? Avoid spicy or fatty foods. General instructions ? Take oclj-cco-fppcbys and prescription medicines only as told by your health care provider. ? Use a cool mist humidifier to add humidity to the air in your home. This can make it easier to breathe. ? When using a cool mist humidifier, clean it daily. Empty the water and replace it with clean water. ? Cover your mouth and nose when you cough or sneeze. ? Wash your hands with soap and water often and for at least 20 seconds, especially after you cough or sneeze. If soap and water are not available, use alcohol-based hand teradata developer. ? Keep all follow-up visits. This is important. How is this prevented? Get an annual flu shot. This is usually available in late summer, fall, or winter. Ask your health care provider when you should get your flu shot. ? Avoid contact with people who are sick during cold and flu season. This is generally fall and winter. Contact a health care provider if: ? You develop new symptoms. ? You have: ? Chest pain. ? Diarrhea. ? A fever. ? Your cough gets worse. ? You produce more mucus. ? You feel nauseous or you vomit. Get help right away if you: ? Develop shortness of breath or have difficulty breathing. ? Have skin or nails that turn a bluish color. ? Have severe pain or stiffness in your neck. ? Develop a sudden headache or sudden pain in your face or ear. ? Cannot eat or drink without vomiting. These symptoms may represent a serious problem that is an emergency. Do not wait to see if the symptoms will go away. Get medical help right away. Call your local emergency services (911 in the [place] Do not drive yourself to the hospital. Summary ? Influenza, also called the flu, is a viral infection that primarily affects your respiratory tract. ? Symptoms of the flu usually begin suddenly and last 4???14 days. ? Getting an annual flu shot is the best way to prevent getting the flu. ? Stay home from work or school as told by your health care provider. Unless you are visiting your health care provider, avoid leaving home until your fever has been gone for 24 hours without taking medicine. ? Keep all follow-up visits. This is important. This information is not intended to replace advice given to you by your health care provider. Make sure you discuss any questions you have with your health care provider. Document Revised: 05/03/2021 Document Reviewed: 05/03/2021 Elsevier Patient Education ?? 2022 [employer] Electronically Signed on: 11/24/2023 15:19 ESTSigned by:[facility] Patient Care team information Care Team Personnel Name: SIERRA GUAJARDO Position: No Access Member Role: Primary Care Physician Address: Address: [id number] [place] [address] Care Team Related Persons Name: FLORESITA VICTORIA Address: Home [address] [id number] [facility]
--- OUTSIDE RECORDS SUMMARY | 2024-05-26 17:15 | XMS_ITS | Continuity of Care Document ---
Author Organization [facility] Address [address] [place] [address] Care Team Providers Care Juice Tester Name Role Phone SIERRA GUAJARDO Primary Care Physician [phone] Encounter [facility] NBR [id number] Date(s): 07/31/23 - 07/31/23 [facility] [address] [place] [address]- Discharge Disposition: Home or Self Care Attending Physician: Dillon Connolly MD Admitting Physician: Dillon Connolly MD Referring Physician: SIERRA GUAJARDO Allergies, Adverse Reactions, Alerts No Known Allergies Assessment and Plan Future Appointments Appointment Date:08/07/2023 11:00:00 AM Scheduled Provider:Javier Nance MD Location:[facility] Appointment Type:OB Follow Up Medications C-Titus DHA oral capsule 1 cap, Oral, Daily, # 90 cap, 3 Refill(s), Pharmacy: [id number] Start Date: 06/24/23 Status: Ordered Phenergan 12.5 mg oral tablet 12.5 mg = 1 tab, Oral, every 6 hr, PRN as needed for nausea/vomiting, # 30 tab, 1 Refill(s), Pharmacy: [id number] Start Date: 04/15/23 Status: Ordered Tylenol [...] tooth 1 2021 Completed 1X 4 Results Radiology Reports * Exam Date Time Procedure Performing Provider Status 07/31/23 9:49 AM US OB Limited DomainUserShonna (Verified) Notes: (US OB Limited) Reason For Exam: Follow-up spine, kidneys, ACL to complete anatomic survey US OB Limited EXAM DESCRIPTION: US OB Limited 07/31/2023 INDICATION: FOLLOW-UP SPINE, KIDNEYS, ACL TO COMPLETE ANATOMIC SURVEY TECHNIQUE: Limited grayscale obstetric ultrasound COMPARISON: 07/10/2023 FINDINGS: Single live intrauterine gestation in breech position. growth parameters were not obtained on this limited examination Images of the spine, kidneys and abdominal cord insertion were obtained which appear within normal limits. This completes survey of anatomy. Amniotic fluid volume is qualitatively normal. heart rate was 144 beats per minute IMPRESSION: Single live intrauterine gestation in breech position. growth parameters were not obtained on this limited examination anatomy survey was completed as detailed above JOB #: [id number] Final Signed by: Javier Allan MD Signed (Electronic Signature): 07/31/2023 10:03 am Social History Social History Type Response Smoking Status Smoking tobacco use: Never tobacco user;Never entered on: 06/11/23 Sex Female Patient Care team information Care Team Personnel Name: SIERRA GUAJARDO Position: No Access Member Role: Primary Care Physician Address: Address: [address] [address]- [place] Care Team Related Persons Name: FLORESITA VICTORIA Address: Home [address] [place], [place] [phone] [facility] Name: FLORESITA VICTORIA Address: Home [address] [place], [place] [id number] [facility]
--- OUTSIDE RECORDS SUMMARY | 2024-05-26 17:15 | XMS_ITS | Continuity of Care Document ---
Author Organization [facility] Ambulatory Clinics Address [address] [place] [address] Care Team Providers Care Poultry Killer Name Role Phone CASANDRA SIERRA Primary Care Physician Encounter [facility] NBR [id number] Date(s): 11/09/23 - 11/09/23 [facility] Ambulatory Clinics [address] [place], [place] [address] Encounter Diagnosis Encounter for care in third trimester of first (Discharge Diagnosis) - 11/09/23 Discharge Disposition: Home or Self Care Attending Physician: Pamela Hill APRN Allergies, Adverse Reactions, Alerts No Known Allergies Assessment and Plan Extracted from: Title:OB Office Visit Note Author:Pamela Hill APRN Date:11/09/23 1.??Encounter for c are in third trimester of first ??Z34.03 Baby is active. No lof/bleeding/ctx. GBS was collected last week when she was having ctx. Reviewed that it may need to be repeated if she goes over her ANGELIQUE. Future Appointments Appointment Date:11/18/2023 03:30:00 PM Scheduled Provider:Shashank Ling MD Location:[facility] Appointment Type:OB Follow Up Appointment Date:11/24/2023 01:30:00 PM Scheduled Provider:Javier Nance MD Location:[facility] Appointment Type:OB Follow Up Appointment Date:12/03/2023 02:00:00 PM Scheduled Provider:Dillon Connolly MD Location:[facility] Appointment Type:OB Follow Up Appointment Date:12/07/2023 02:30:00 PM Scheduled Provider:Dillon Connolly MD Location:[facility] Appointment Type:OB Follow Up Medications C-Titus DHA oral capsule 1 cap, Oral, Daily, # 90 cap, 3 Refill(s), Pharmacy: [id number] Start Date: 06/24/23 Status: Ordered NIFEdipine 10 mg oral capsule 10 mg = 1 cap, Oral, every 6 hr, 0 Refill(s) Start Date: 10/31/23 Status: Ordered Phenergan 12.5 mg oral tablet 12.5 mg = 1 tab, Oral, every 6 hr, PRN as needed for nausea/vomiting, # 30 tab, 1 Refill(s), Pharmacy: [facility] Start Date: 04/15/23 Status: Ordered Tylenol [...] [Reference Range]: 1 Protein Urine Dipstick Trace (11/09/23 3:55 PM) Glucose Urine Dipstick Negative (11/09/23 3:55 PM) Urine Color Urine Dipstick Dark yellow (11/09/23 3:55 PM) Urine Appearance Urine Dipstick Slightly cloudy (11/09/23 3:55 PM) Vital Signs Most recent to oldest [Reference Range]: 1 Blood Pressure [90-140/60-90 mmHg] 94/58 mmHg (11/09/23 3:55 PM) Mean Arterial Pressure, Cuff [70-110 mmH g] 70 mmHg (11/09/23 3:55 PM) Weight 60.8 kg (11/09/23 3:55 PM) Weight Measured (lbs) 134.041 lb (11/09/23 3:55 PM) Weight Dosing 60.800 kg (11/09/23 3:55 PM) [place] Body Weight Calculated 57 kg (11/09/23 3:55 PM) Height 165.1 cm (11/09/23 3:55 PM) Height/Length Measured (inches) 65 inch (11/09/23 3:55 PM) BSA Measured 1.67 m2 (11/09/23 3:55 PM) Body Mass Index 22.31 kg/m2 (11/09/23 3:55 PM) Body Mass Index Percentile 58.41 1 (11/09/23 3:55 PM) Height/Length Percentile 61.10 2 (11/09/23 3:55 PM) Weight Percentile 62.62 3 (11/09/23 3:55 PM) 1Result Comment: ^~:!Percentile Source -CDC 2Result Comment: ^~:!Percentile Source -CDC 3Result Comment: ^~:!Percentile Source -[facility] Social History Social History Type Response Smoking Status Smoking tobacco use: Never tobacco user;Never entered on: 06/11/23 Sex Female Physician Outpatient Note * Pamela Hill, BRUSHER AND SHEARER: PERFORM Event Display: Office Clinic Note Physician Authored Date: [id number] MIKEY VICTORIA :2005 Age:18 years Sex:Female Visit Date:11/09/2023 Primary Care Physician: SIERRA GUAJARDO ANGELIQUE/EGA Gestational Age (EGA) and ANGELIQUE? * Note: EGA calculated as of 11/09/2023 ?? ANGELIQUE:??12/05/2023?EGA*:??36 weeks 2 days ?Type:??Authoritative?Method Date:??04/15/2023 ?Method:??Ultrasound??(04/15/2023) ?Confirmation:??Confirmed ?Description:??-- ?Comments:??-- [...] on 05/14/2023 Chief Complaint OB follow up Physical Exam Vitals & Measurements BP:??94/58?? HT:??61.10??(Percentile)?? HT:??165.1??cm?? WT:??62.62??(Percentile)?? WT:??60.8??kg?? BMI:??58.41??(Percentile)?? BMI:??22.31?? BSA:??1.67?? Risk Factors Risk Factors, Antepartum Current Preg: Other: 10/06/2023 growth US NI 8.7cm, 1776 grams, 40th percentile (10/06/23) Risk Factors, Antepartum Current Preg: Other: rubella nonimmune (05/15/23) Assessment/Plan 1.??Encounter for care in third trimester of first ??Z34.03 Baby is active. No lof/bleeding/ctx. GBS was collected last week when she was having ctx. Reviewed that it may need to be repeated if she goes over her ANGELIQUE. Cards Exam and Notes ?? Exams and Notes ?? Date:??11/09/23 EGA:??36w2d Weight (lbs kg):??*134... Fundal Height [...] (mmHg):??111/61 ? Cervix Exam (Dil cm/Eff %/Sta -):%/-2?? Labor S/S:?? Urine Glucose:?? Urine Protein:?? Next [...] Performed: 05/14/23 Rubella,Transcribed: Nonimmune Electronically Signed on 11/09/23 04:47 PM Pamela Hill APRN Patient Care team information Care Team Personnel Name: SIERRA GUAJARDO Position: No Access Member Role: Primary Care Physician Address: Address: [address] [address] Care Team Related Persons Name: FLORESITA VICTORIA Address: Home [address] [phone] [facility]
--- OUTSIDE RECORDS SUMMARY | 2024-05-26 17:15 | XMS_ITS | Continuity of Care Document ---
Author Organization [facility] Ambulatory Clinics Address [address] [place] [address] Care Team Providers Care Fisher Swordfish Name Role Phone CASANDRA SIERRA Primary Care Physician [phone] Encounter [facility] NBR [id number] Date(s): 08/07/23 - 08/07/23 [facility] Ambulatory Clinics [address] [place], [place] [address] Encounter Diagnosis Normal first in second trimester(Discharge Diagnosis) - 08/07/23 Discharge Disposition: Home or Self Care Attending Physician: Javier Nance MD Allergies, Adverse Reactions, Alerts No Known Allergies Assessment and Plan Future Appointments Appointment Date:2023 01:45:00 PM Scheduled Provider:Javier Nance MD Location:[facility] Appointment Type:OB Follow Up Medications C-Titus DHA oral capsule 1 cap, Oral, Daily, # 90 cap, 3 Refill(s), Pharmacy: [facility] Start Date: 06/24/23 Status: Ordered Phenergan 12.5 mg oral tablet 12.5 mg = 1 tab, Oral, every 6 hr, PRN as needed for nausea/vomiting, # 30 tab, 1 Refill(s), Pharmacy: [facility] Start Date: 04/15/23 Status: Ordered Tylenol [...] Range]: 1 2 Blood Pressure [90-140/60-90 mmHg] 98/52 mmHg (08/07/23 11:10 AM) Mean Arterial Pressure, Cuff [70-110 mmHg] 67 mmHg *LOW* (08/07/23 11:10 AM) Weight 53.5 kg (08/07/23 11:10 AM) Weight Measured (lbs) 117.947 lb (08/07/23 11:10 AM) Weight Dosing 53.500 kg (08/07/23 11:10 AM) [place] Body Weight Calculated 57 kg (08/07/23 11:10 AM) Pre- Weight 49.90 kg (08/07/23 11:10 AM) Cumulative Weight Gain 4 kg (08/07/23 11:10 AM) Height 165.10 cm (08/07/23 11:10 AM) Height/Length Measured (inches) 65 inch (08/07/23 11:10 AM) Body Mass Index 19.63 kg/m2 (08/07/23 11:10 AM) 19.63 kg/m2 (08/07/23 11:10 AM) Body Mass Index Percentile 24.33 1 (08/07/23 11:10 AM) Height/Length Percentile 61.25 2 (08/07/23 11:10 AM) Weight Percentile 32.93 3 (08/07/23 11:10 AM) 1Result Comment: ^~:!Percentile Source -[facility] 2Result Comment: ^~:!Percentile Source -[facility] 3Result Comment: ^~:!Percentile Source -[facility] Social History Social History Type Response Smoking Status Smoking tobacco use: Never tobacco user;Never entered on: 06/11/23 Sex Female Physician Outpatient Note * Javier Nance MD: PERFORM Event Display: Office Clinic Note Physician Authored Date: [id number] MIKEY VICTORIA :2005 Age:17 years Sex:Female Visit Date:08/07/2023 Primary Care Physician: SIERRA GUAJARDO ANGELIQUE/EGA Gestational Age (EGA) and ANGELIQUE? * Note: EGA calculated as of 08/07/2023 ?? ANGELIQUE:??12/05/2023?EGA*:??22 weeks 6 days ?Type:??Authoritative?Method Date:??04/15/2023 ?Method:??Ultrasound??(04/15/2023) ?Confirmation:??Confirmed ?Description:??-- ?Comments:??-- ?Entered by:??Shashank Ling MD on 05/14/2023? Other ANGELIQUE Calculations for this : ?Method:??Ultrasound ?Method Date:??07/10/2023 ?ANGELIQUE:??12/07/2023 ?EGA (At Entry):??18 weeks 4 days ?Type:??Non-Authoritative ?Comments:??-- ?Entered by:??Dillon Connolly MD on 07/10/2023 ?Method:??Ultrasound ?Method Date:??05/14/2023 ?ANGELIQUE:??12/02/2023 ?EGA (At Entry):??11 weeks 1 days ?Type:??Non-Authoritative ?Comments:??BSUS transabd ?Entered by:??Shashank Ling MD on 05/14/2023 Chief Complaint OB FU 22wks,6d. Follow up U/S on 07/31. Patient started a new with no iron. She is wondering about an iron supplement, or if the new is ok to still take. Physical Exam Vitals & Measurements BP:??98/52?? HT:??61.25??(Percentile)?? HT:??165.10??cm?? WT:??32.93??(Percentile)?? WT:??53.5??kg?? BMI:??24.33??(Percentile)?? BMI:??19.63?? BMI:??19.63?? Risk Factors Risk Factors, Antepartum Current Preg: Other: rubella nonimmune (05/15/23) Assessment/Plan 1.??Normal first in second trimester??Z34.02 Repeat US for anatomy not seen completed and normal. GCT next visit. Follow up 4 weeks. ?? Cards Exam and Notes ?? Exams and Notes ?? Date:??08/07/23 EGA:??22w6d Weight (lbs kg):??*117... Fundal Height (cm):??-- ? Blood Pressure (mmHg):??98/52 ? Cervix Exam (Dil cm/Eff %/Sta -):--/--/--?? Labor S/S:?? Urine Glucose:?? Urine Protein:?? Next Visit:? Date:??07/10/23 EGA:??18w6d Weight (lbs kg):??*118... Fundal Height [...] Performed: 05/14/23 Rubella,Transcribed: Nonimmune Electronically Signed on 08/07/23 01:06 PM Javier Nance MD Patient Care team information Care Team Personnel Name: SIERRA GUAJARDO Position: No Access Member Role: Primary Care Physician Address: Address: [place] [address]- Care Team Related Persons Name: FLORESITA VICTORIA Address: Home [address] [place], [place] [id number] [place] Name: FLORESITA VICTORIA Address: Home [address] [place], [place] [id number] [place] [address]
--- OUTSIDE RECORDS SUMMARY | 2024-05-26 17:15 | XMS_ITS | Continuity of Care Document ---
Author Organization [facility] Ambulatory Clinics Address [address] [place] [address] Care Team Providers Care Rose Grower Name Role Phone CASANDRA SIERRA Primary Care Physician Encounter [facility] NBR [id number] Date(s): 07/10/23 - 07/10/23 [facility] Ambulatory Clinics [address] [place] [address]- Discharge Disposition: Home Allergies, Adverse Reactions, Alerts No Known Allergies Assessment and Plan Future Scheduled Tests Radiology* US OB Limited 07/10/23 Medications C-Titus DHA oral capsule 1 cap, Oral, Daily, # 90 cap, 3 Refill(s), Pharmacy: [facility] Start Date: 06/24/23 Status: Ordered Phenergan 12.5 mg oral tablet 12.5 mg = 1 tab, Oral, every 6 hr, PRN as needed for nausea/vomiting, # 30 tab, 1 Refill(s), Pharmacy: [facility] Start Date: 04/15/23 Status: Ordered [...] Member Role: Primary Care Physician Address: Address: [address] [address]- Care Team Related Persons Name: FLORESITA VICTORIA Address: Home [address] [place], [place] [phone] [facility] Name: FLORESITA VICTORIA Address: Home [address] [place], [place] [phone] [facility]
--- OUTSIDE RECORDS SUMMARY | 2024-05-26 17:16 | XMS_ITS | Continuity of Care Document ---
Author Organization 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 Name Role Phone SIERRA GUAJARDO Primary Care Physician [phone] Encounter [facility] NBR [id number] Date(s): 12/03/23 - 12/06/23 [facility] [address], [place] [address] Encounter Diagnosis Spontaneous vaginal delivery(Discharge Diagnosis) - 12/03/23 growth restriction(Discharge Diagnosis) - 12/03/23 Oligohydramnios without rupture of membranes(Discharge Diagnosis) - 12/03/23 Other underimmunization status(Discharge Diagnosis) - 12/03/23 Rubella non-immune status, antepartum(Discharge Diagnosis) - 12/03/23 Maternal care for other known or suspected poor growth, third trimester, not applicable or unspecified(Final) - Oligohydramnios, third trimester, not applicable or unspecified(Final) - Single live (Final) - First degree perineal laceration during delivery(Final) - Spinal and epidural anesthesia-induced headache during the puerperium(Final) - Other underimmunization status(Final) - 39 weeks gestation of (Final) - Discharge Disposition: Home or Self Care Attending Physician: Dillon Connolly MD Admitting Physician: Dillon Connolly MD Referring Physician: Javier Nance MD Allergies, Adverse Reactions, Alerts No Known Allergies Assessment and Plan Extracted from: Title:OB - Acute Author:Dillon Connolly MD Date:12/06/23 1.??Spontaneous vaginal deli very??O80 2.?? growth restriction??O36.5931 3.??Oligohydramnios without rupture of membranes??O41.03X1 4.??Rubella non-immune status, antepartum??O09.899 Other underimmunization status??Z28.39 Orders: ferrous sulfate 325 mg (65 mg elemental iron) oral delayed release tablet, 325 mg = 1 tab, Oral, Daily, 0 Refill(s) Discharge Diet Instruction, Regular Discharge Follow Up Instructions, 12/06/23 9:47:00 EDT, When following are met: Feeling improved, Follow-up with Dr. Connolly in 2 weeks . Discharge Patient, 12/06/23 9:47:00 EDT, Home Independently Discharge Patient Instructions, Continue vitamins. Tylenol or Motrin every 4 hours as needed for pain. Gradually increase activity. Notify doctor if temperature greater than 100.5 ??F. Nothing in vagina for 6 weeks or until bleeding stops. Contraception . Discharge Patient Instructions, No driving for 48 hours. Discharge Patient Instructions, No heavy lifting for 6 weeks. Discharge Patient Instructions, Breastfeed baby [facility] Nursing Task, 12/06/23 9:47:00 EDT, Stop date 12/06/23 9:47:00 EDT, Check with pharmacy / [facility] for home meds prior to discharge Patient Education, 12/06/23 9:47:00 EDT, Stop date 12/06/23 9:47:00 EDT, teaching per protocol for mother and baby. Discharge. ??Discharge teaching done. Extracted from: Title:OB - Acute Author:Dillon Connolly MD Date:12/05/23 1.??Spontaneous vaginal deli very??O80 2.?? growth restriction??O36.5931 3.??Oligohydramnios without rupture of membranes??O41.03X1 4.??Rubella non-immune status, antepartum??O09.899 Other underimmunization status??Z28.39 Headache??consistent with??spinal tap during epidural.?? Oral and IV hydration along with??Tylenol and ibuprofen.?? Will consult??anesthesia??if not improved after??48 hours. Extracted from: Title:OB Delivery - Vaginal Author:Dillon Connolly MD Date:12/03/23 1.?? growth restriction ??O36.5931 2.??Oligohydramnios without rupture of membranes??O41.03X1 3.??Rubella non-immune status, antepartum??O09.899 Other underimmunization status??Z28.39 Extracted from: Title:OB Admission H&P Author:MD Gio Shannon te:12/03/23 1.?? growth restriction ??O36.5931 2.??Oligohydramnios without rupture of membranes??O41.03X1 3.??Rubella non-immune status, antepartum??O09.899 Other underimmunization status??Z28.39 Orders: miSOPROStol, 25 mcg = 0.25 tab, Vaginal, Tab, every 3 hr, PRN other (see comment), First Dose: 12/03/23 8:51:00 EST, Routine miSOPROStol, 50 mcg = 0.5 tab, Vaginal, Tab, every 3 hr, PRN other (see comment), First Dose: 12/03/23 8:51:00 EST, Routine morphine, 10 mg = 1 mL, Intramuscular, Injection, Once, First Dose: 12/03/23 9:00:00 EST, Stop Date: 12/03/23 9:00:00 EST, Physician Stop, Routine morphine, 12 mg = 3 mL, Intramuscular, Injection, Once, First Dose: 12/03/23 9:00:00 EST, Stop Date: 12/03/23 9:00:00 EST, Physician Stop, Routine oxytocin IV additive 30 units + LR Diluent 500 mL, Total Volume (mL): 503, 500 mL, Vial, IV, Titrate Per Protocol, Start Date: 12/03/23 8:51:00 EST, 60.4 kg, Populate Charting Weight From Order, 1.66, m2 Phenergan, 25 mg = 1 mL, Intramuscular, Vial, Once, First Dose: 12/03/23 9:00:00 EST, Stop Date: 12/03/23 9:00:00 EST, Physician Stop, Routine ABO/Rh Echo, Blood, Expedite, 12/03/23 8:51:00 EST, Once, Lab Collect ABSC Echo, Blood, Expedite, 12/03/23 8:51:00 EST, Once, Lab Collect Bathroom Privileges, 12/03/23 8:51:00 EST, PRN, 12/03/23 8:51:00 EST, 12/03/23 8:51:00 EST CBC w/ Diff, Blood, Routine, 12/03/23 8:51:00 EST, Once, Lab Collect Communication Order, 12/03/23 8:51:00 EST, If not voiding, straight cath as needed, Q12 hour frequency Comprehensive Metabolic Panel, Blood, Expedite, 12/03/23 8:51:00 EST, Once, Lab Collect Diet Order, 12/03/23 8:51:00 EST, Regular Heart Monitoring, 12/03/23 8:51:00 EST, PRN, Continuous monitoring during a) epidural anesthesia;b) oxytocin administration, c) 2 hours after use of Cytotec Hourly Rounding, 12/03/23 8:51:00 EST, every 1 hr Isolation Precautions, 12/03/23 8:51:00 EST, [place] Precautions Misc Nursing Task, 12/03/23 8:51:00 EST, every 2 hr, 2hrs post Misoprostol administration (castings drafter Q30min) NST on arrival LTTL, 12/03/23 8:51:00 EST, Stop date 12/03/23 8:51:00 EST Oxygen Therapy, to keeps sats >= 94% via N/C or simple mask, Gerri Sanchez Admit to Inpatient, Obstetrics, Inpatient, 12/03/23 8:43:00 EST, 12/03/23 8:43:00 EST, 12/03/23 8:43:00 EST, Less than 96 hours Resuscitation Status, 12/03/23 8:51:00 EST, Full Code Shower Privileges, 12/03/23 8:51:00 EST, PRN T pallidum Screening Plato LC, Blood, Expedite, 12/03/23 8:51:00 EST, Once, Lab Collect Temperature, 12/03/23 8:51:00 EST, every 1 hr, After ROM. Vaginal Exam, 12/03/23 8:51:00 EST, Frequency Once, On Admission to Unit, Stop date 12/03/23 8:51:00 EST Vaginal Exam, 12/03/23 8:51:00 EST, Frequency As Directed, Prior to pain medication administration. Vaginal Exam, 12/03/23 8:51:00 EST, Frequency Once, Prior to epidural placement., Stop date 12/03/23 8:51:00 EST Vital Signs, 12/03/23 8:51:00 EST, every 2 hr, while in labor. Cytotec 25 mcg vaginally. ??We discussed??Plan of Care for??Labor Induction with??vaginal Misoprostol??and??IV Pitocin. ??She wants an epidural when in labor. Future Appointments Functional Status 12/05/23 Nguyen Care Independent 12/04/23 Activity Status ADL Ambulating in room, Up ad shabana Activity Assistance Independent 12/03/23 Family Member Travel History No recent t yusuf Recent Travel History No recent travel Other exposure to Infectious Disease Non e Medications ferrous sulfate 325 mg (65 mg elemental iron) oral delayed release tablet 325 mg = 1 tab, Oral, Daily, 0 Refill(s) Start Date: 12/06/23 Status: Ordered Tylenol 325 mg oral capsule [...] 1X 4 Results Laboratory List Name Date ABO/Rh Echo 12/03/23 ABSC Echo (Antibody Screen Echo) 12/03/23 CBC w/ Diff 12/03/23 Comprehensive Metabolic Panel (CMP) T pallidum Screening Plato LC (Syphill is Screening Plato LC [id number]) 12/03/23 Automated Diff 12/03/23 Most recent to oldest [Reference Range]: 1 WBC [4.8-10.8 K/mcL] 11.2 K/mcL *HI* (12/03/23 3:15 PM) RBC [4.20-5.40 Million/mcL] 4.09 Million /mcL *LOW* (12/03/23 3:15 PM) Neutro Auto [42.2-75.2 %] 79.8 % *HI* (12/03/23 3:15 PM) Lymph Auto [20.5-51.1 %] 15.3 % *LOW* (12/03/23 3:15 PM) [place] Auto [1.7-9.3 %] 4.7 % (12/03/23 3:15 PM) Basophil Auto [0.0-0.8 %] 0.1 % (12/03/23 3:15 PM) BUN [7-25 mg/dL] 5 mg/dL *LOW* (12/03/23 3:15 PM) Glucose Level [70-109 mg/dL] 77 mg/dL (12/03/23 3:15 PM) Potassium Level [3.5-5.1 mmol/L] 4.3 mmo l/L (12/03/23 3:15 PM) Baso Absolute [0.0-0.2 K/mcL] 0.0 K/mcL (12/03/23 3:15 PM) MCV [81.0-99.0 fL] 89.3 fL (12/03/23 3:15 PM) AST [13-39 IntlUnit/L] 17 IntlUnit/L (12/03/23 3:15 PM) ALT [7-52 IntlUnit/L] 16 IntlUnit/L (12/03/23 3:15 PM) MCHC [32.0-37.0 g/dL] 33.9 g/dL (12/03/23 3:15 PM) Osmolality [275-295 mOsm/kg] 272 mOsm/kg *LOW* (12/03/23 3:15 PM) Sodium Level [136-145 mmol/L] 138 mmol/L (12/03/23 3:15 PM) Lymph Absolute [1.2-3.4 K/mcL] 1.7 K/mcL (12/03/23 3:15 PM) Hct [37.0-47.0 %] 36.5 % *LOW* (12/03/23 3:15 PM) Calcium Level [8.6-10.3 mg/dL] 8.7 mg/dL (12/03/23 3:15 PM) [place] Absolute [0.1-0.6 K/mcL] 0.5 K/mcL (12/03/23 3:15 PM) Albumin Level [3.5-5.7 g/dL] 3.4 g/dL *LOW* (12/03/23 3:15 PM) Protein Total [6.4-8.9 g/dL] 6.6 g/dL (12/03/23 3:15 PM) MCH [27.0-31.0 pg] 30.3 pg (12/03/23 3:15 PM) Neutro Absolute [1.4-6.5 K/mcL] 8.9 K/mc L *HI* (12/03/23 3:15 PM) Bilirubin Total [0.3-1.0 mg/dL] 0.5 mg/d L (12/03/23 3:15 PM) Hgb [12.0-16.0 g/dL] 12.4 g/dL (12/03/23 3:15 PM) Alk Phos [34-104 IntlUnit/L] 148 IntlUni t/L *HI* (12/03/23 3:15 PM) MPV [7.4-10.4 fL] 8.3 fL (12/03/23 3:15 PM) Platelets [130-400 K/mcL] 289 K/mcL (12/03/23 3:15 PM) CO2 [21-31 mmol/L] 24 mmol/L (12/03/23 3:15 PM) Eos Absolute [0.0-0.2 K/mcL] 0.0 K/mcL (12/03/23 3:15 PM) Chloride Level [98-107 mmol/L] 105 mmol/ L (12/03/23 3:15 PM) RDW-CV [11.5-14.5 %] 13.8 % (12/03/23 3:15 PM) A/G Ratio [1.0-2.5 g/dL] 1.1 g/dL (12/03/23 3:15 PM) BUN/Creat Ratio [8.0-20.0] 12.5 (12/03/23 3:15 PM) Globulin [2.3-3.5 g/dL] 3.2 g/dL (12/03/23 3:15 PM) Treponema pallidum Antibodies: LC [Non R eactive] Non Reactive 1 *NA* (12/03/23 3:15 PM) Creatinine Level [0.60-1.20 mg/dL] 0.40 mg/dL *LOW* (12/03/23 3:15 PM) ABO/Rh Echo A POS *Unknown* (12/03/23 3:15 PM) Anion Gap [3.0-12.0] 9.0 (12/03/23 3:15 PM) Eos, Auto [0.00-3.00 %] 0.10 % (12/03/23 3:15 PM) eGFR CKD-EPI [>=60 mL/min/1.73 m2] 146 m L/min/1.73 m2 (12/03/23 3:15 PM) ABSC Echo Negative ABSC (12/03/23 3:15 PM) 1Result Comment: Performed At: [facility] [address] [place] [address] [id number] Candy Avalos MD Ph:[phone] Vital Signs Most recent to oldest [Reference Range]: 1 2 3 Temperature Oral [35.8-37.3 Deg C] 36.6 Deg C (12/06/23 10:25 AM) 36.4 Deg C (12/06/23 1:23 AM) 36.5 Deg C (12/05/23 7:45 PM) Temperature Oral (DegF) [96.4-99.1 Deg F] 97.88 Deg F (12/06/23 10:25 AM) 97.52 Deg F (12/06/23 1:23 AM) Temperature Temporal Artery [36-38 Deg C] 36.6 Deg C (12/05/23 8:33 AM) 36.3 Deg C (12/03/23 1:46 PM) 36.4 Deg C (12/03/23 9:02 AM) Temperature Temporal Artery (DegF) [97.3-100 Deg F] 97.88 Deg F (12/05/23 8:33 AM) 97.34 Deg F (12/03/23 1:46 PM) 97.52 Deg F (12/03/23 9:02 AM) Peripheral Pulse Rate [60-100 bpm] 137 bpm *HI* (12/03/23 7:03 PM) 110 bpm *HI* (12/03/23 6:57 PM) 111 bpm *HI* (12/03/23 6:55 PM) Heart Rate Monitored [60-100 bpm] 76 bpm (12/06/23 10:25 AM) 65 bpm (12/06/23 1:23 AM) 86 bpm (12/05/23 7:45 PM) Respiratory Rate [12-24 br/min] 18 br/min (12/05/23 8:33 AM) 16 br/min (12/05/23 4:30 AM) 16 br/min (12/04/23 9:20 AM) Blood Pressure [90-140/60-90 mmHg] 105/59mmHg (12/06/23 10:25 AM) 93/56mmHg (12/06/23 1:23 AM) 108/62mmHg (12/05/23 7:45 PM) Mean Arterial Pressure, Cuff [65-140 mmHg] 74 mmHg (12/06/23 10:25 AM) 68 mmHg (12/06/23 1:23 AM) 76 mmHg (12/05/23 8:33 AM) Blood Pressure Location Right arm (12/03/23 7:03 PM) Blood Pressure Method Automatic (12/03/23 7:03 PM) Weight 60.4 kg (12/03/23:25 AM) 60.4 kg (12/03/23 8:52 AM) Weight Dosing 60.400 kg (12/03/23 8:52 AM) Height 135.1 cm (12/03/23 9:25 AM) 165.1 cm (12/03/23 8:52 AM) BSA Measured 1.51 m2 (12/03/23:25 AM) 1.66 m2 (12/03/23 8:52 AM) BSA Estimated 0 m2 (12/03/23:25 AM) 0 m2 (12/03/23 8:52 AM) Body Mass Index 33.09 kg/m2 (12/03/23:25 AM) 22.16 kg/m2 (12/03/23 8:52 AM) Body Mass Index Percentile 96.44 1 (12/03/23 9:25 AM) 56.76 2 (12/03/23 8:52 AM) Height/Length Percentile 0.00 3 (12/03/23 9:25 AM) 61.10 4 (12/03/23 8:52 AM) Weight Percentile 61.21 5 (12/03/23 9:25 AM) 61.21 6 (12/03/23 8:52 AM) 1Result Comment: ^~:!Percentile Source [facility] 2Result Comment: ^~:!Percentile Source [facility] 3Result Comment: ^~:!Percentile Source [facility] 4Result Comment: ^~:!Percentile Source [facility] 5Result Comment: ^~:!Percentile [facility] 6Result Comment: ^~:!Percentile Source [facility] Social History Social History Type Response Smoking Status Smoking tobacco use: Never tobacco user;Never entered on: 06/11/23 Sex Female Hospital Discharge Instructions Patient Education 12/06/2023 08:48:06 [facility] - Vaginal or Delivery Post Discharge Instructions (CUSTOM) [facility] POST DISCHARGE INSTRUCTIONS Going home after a Vaginal or delivery GENERAL: You have just had a baby. It is normal to feel tired and worn out over the next several weeks. Sleep is difficult to get when you have a . We recommend sleeping when your baby sleeps if possible or asking someone to watch your so you can nap. Some discomfort is expected after a vaginal delivery. Most times this discomfort can be adequately managed with rest, heat, Ibuprofen, and Tylenol. Occasionally a narcotic may be needed for breakthrough pain. If you begin to have pain that is not controlled with the medications you were sent home with or if you develop fever and chills, please give the office a call. Vaginal bleeding is normal as your uterus works on returning to its normal size. While nursing yourbaby your uterus may feel crampy and your bleeding may increase during these times. You may experience some clots that may be dime size, quarter size and fifty cent size. This is normal. If you continue to pass larger clots, and the flow is increasing over 4 hours, we recommend that you call the office. If you had a vaginal tear that required suturing these sutures will dissolve over the next three weeks. During this process you may notice some yellowish drainage that may have a foul odor. This is the suture material breaking down, and it is a normal process. Keep the tissue clean with your pericare bottle or by taking a bath. Tucks pads can also be helpful. If you have an incision on your abdomen these sutures will dissolve on their own over the next 2 to 3 weeks. There are sutures that are deeper inside that will take 3 months to dissolve. Remember that eating a diet rich in protein will help your incision heal. When showering let the water run over your incision and pat dry with a towel. You do not need to redress the wound. If it rubs against your pants and feels sore, it is fine to place a gauze pad between your incision and your clothing for cushioning. If you are your milk will come in three or four days after you have given . It is normal for your nipples to feel sore for the first couple of weeks, but it is not normal for them to bleed, crack, or feel so raw that you feel like stopping breast feeding. We have support on the OB unit and Pamela is also a sales consultant residential manager in the office. They are very willing to help and provide support in any way they can. During your we talked about what your control plans would be after your delivery. Most times we can make a plan at your six week post checkup and start the plan of your choice at that time. If we know ahead of time what your plan is we can schedule you appropriately and make sure we have what we need on hand when you come for the appointment. It is normal to experience post blues. Your hormone levels change dramatically after you deliver and this can cause you to feel tired, teary eyed, sad, and overwhelmed at times. The post blues typically improve after 2-3 weeks. Post depression can settle in after that and can be very worrisome. If you feel that you cannot stop crying, do not want to see your baby, are struggling to leave your house and/or find that your mind is racing and you can't settle down, please call [facility], and we can see you to discuss depression. ACTIVITY: If you had a vaginal tear that required suturing please avoid sexual intercourse until your six week post visit. If you had no tearing we recommend that you wait to have intercourse until all of your bleeding has stopped. Keep in mind that you can get if you aren't on anything for contraception. If your baby was delivered by please avoid sexual intercourse until your six week post visit. You should also do no heavy lifting for six weeks. Any lifting that takes the strength ofboth of your arms/hands is contraindicated. If you need both hands because whatever you are liftingis cumbersome that is fine. For example, a laundry basket with a few bath towels in it. Also it is good for you to climb stairs and to go for small walks. Your blood volume doubles during . After delivery your body works on removing all of this extra fluid. You may have noticed that your legs and ankles felt pretty swollen prior to delivery. It is normal to see this swelling get worse after delivery. It gets worse if you aren't drinking enough water and/or if you are eating foods with too much sodium. Push the water and watch your salts tohelp the swelling resolve as quickly as possible. Putting your feet up and wearing 2 pairs of socksfor compression can help as well. Most post women who wish to return to work typically do so between 6 and 12 weeks. If you feel you have recovered to the point that you are ready to return to work, please call the office and let one of the secretaries know. It is usually best to discuss your return to work with your employer and pick a date for your return you both agree upon. Let us know that date and a letter will be provided that can be faxed to your employer clearing you to return to work without restriction on yourchosen date. MEDICATIONS: Continue all regularly prescribed medications unless your provider told you to stop a particular medication after your delivery. Continue taking your vitamins until your six week post visit. Ibuprofen is the best medication for your baseline pain control. Taking 600mg by mouth every four hours well help with most of your post pain. Taking it with food is best so it doesn't upset your stomach. Taking it consistently will provide you the greatest pain relief. Tylenol combined with a narcotic: You may have been sent home with a narcotic for pain control. Taking 1 or 2 tablets every 4-6 hours as needed can be helpful for pain you have that isn't covered by the Ibuprofen. We recommend trying one tablet in an attempt to get your pain at a five or less on the pain scale. If after twenty minutes your pain is still greater than a five, you may take the second tablet. There is typically 325mg of Tylenol in each tablet. Be careful not to consume more than 3000mg of Tylenol daily. Most people will find that they need narcotic containing medications sparingly and within a few days not at all. If you had a delivery you may need this medication for a few extra days. These medications are constipating, can leave you slightly sick to your stomach and don't help with inflammation. Increase fluids and fiber. You may need an over the counter stool softener such as Colace or Senna. Taper this type of medication first and then the Ibuprofen. Our office policy is that post op patients can use narcotics in addition to Ibuprofen for up to 7 days. After that, post op pain should be treated with Ibuprofen alone and no further prescriptions for narcotics will be provided. These are the two main medications that we use for post op pain management. See below for the medications that we have recommended you use when you go home. You will have to have the prescriptions filled by your pharmacy. Ibuprofen 600mg by mouth every 4 hours for baseline pain control. Percocet 5/325mg by mouth, 1 or 2 tablets every 4 to 6 hours as needed for pain. Tylenol #3 by mouth, 1 or 2 tablets every 4 to 6 hours as needed for pain. Continue taking your vitamins at least until your six week post visit. Iron sulfate 325mg twice daily - take on an empty stomach with a glass of OJ or a vitamin C tablet until gone. Colace or Senakot once or twice daily to avoid constipation. NorQD for control taken daily at the same time starting in 2 weeks. FOLLOW UP APPOINTMENT: Post appointment is on @ . If this time does not work for you, please call the office to reschedule. The number is . If you need to contact [facility] thenumber is and ask for the Maternity Department. 12/06/2023 08:48:02 and Breast Care, [id number] and Breast Care It is normal to have some problems when you start to breastfeed your new baby. But there are thingsthat you can do to take care of yourself and help prevent problems. This includes keeping your breasts healthy and making sure that your baby's mouth attaches (latches) properly to your nipple for feedings. Work with your doctor or specialist to find what works best for you. How does self-care benefit me? If you keep your breasts healthy and you let your baby attach to your nipples in the right way, youwill avoid these problems: ??? Cracked or sore nipples. ??? Breasts becoming overfilled with milk. ??? Plugged milk ducts. ??? Low milk supply. ??? Breast swelling or infection. How does self-care benefit my baby? By preventing problems with your breasts, you will ensure that your baby will feed well and will gain the right amount of weight. What actions can I take to care for myself during ? Best ways to breastfeed ??? Always make sure that your baby latches properly to breastfeed. ??? Make sure that your baby is in a proper position. Try different positions to findone that works best for you and your baby. ??? Breastfeed when you feel like you need to make your breasts less full or when your baby shows signs of hunger. This is called on demand. ??? Do not delay feedings. ??? Try to relax when it is time to feed your baby. This helps your body release milk from your breast. ??? To help increase milk flow, do these things before feeding: ??? Remove a small amount of milk from your breast. Use a pump or squeeze with your hand. ??? Apply warm, moist heat to your breast. Do this in the shower or use hand towels soaked with warm water. ??? Massage your breasts. Do this when you are as well. Caring for your breasts ??? To help your breasts stay healthy and keep them from getting too dry: ??? Avoid using soap on your nipples. ??? Let your nipples air-dry for 3???4 minutes after each feeding. ??? Do not use things like a electric wheelchair repairer to dry your breasts. This can make the skin dry and will cause irritation and pain. ??? Use only cotton bra pads to soak up breast milk that leaks. Change the pads if they become soaked with milk. If you use bra pads that can be thrown away, change them often. ??? Put some lanolin on your nipples after . Pure lanolin does not need to be washed off your nipple before you feed your baby again. Pure lanolin is not harmful to your baby. ??? Rub some breast milk into your nipples: ??? Use your hand to squeeze out a few drops of breast milk. ??? Gently massage the milk into your nipples. ??? Let your nipples air-dry. ??? Wear a supportive nursing bra. Avoid wearing: ??? Tight clothing. ??? Underwire bras or bras that put pressure on your breasts. ??? Use ice to help relieve pain or swelling of your breasts: ??? Put ice in a plastic bag. ??? Place a towel between your skin and the bag. ??? Leave the ice on for 20 minutes, 2???3 times a day. Follow these instructions at home: ??? Drink enough fluid to keep your pee (urine) pale yellow. ??? Get plenty of rest. Sleep when your baby sleeps. ??? Talk to your doctor or specialist before taking any herbal supplements. ??? Eat a balanced diet. This includes fruits, vegetables, whole grains, lean proteins, and dairy or dairy alternatives Contact a health care provider if: ??? You have nipple pain. ??? You have cracking or soreness in your nipples that lasts longer than 1 week. ??? Your breasts are overfilled with milk, and this lasts longer than 48 hours. ??? You have a fever. ??? You have pus-like fluid coming from your nipple. ??? You have redness, a rash, swelling, itching, or burning on your breast. ??? Your baby does not gain weight. ??? Your baby loses weight. ??? Your baby is not feeding regularly or is very sleepy and lacks energy. Summary ??? There are things that you can do to take care of yourself and help prevent many common problems. ??? Always make sure that your baby's mouth attaches (latches) to your nipple properly to breastfeed. ??? Keep your nipples from getting too dry, drink plenty of fluid, and get plenty of rest. ??? Feed on demand. Do not delay feedings. This information is not intended to replace advice given to you by your health care provider. Make sure you discuss any questions you have with your health care provider. Document Revised: 01/02/2023 Document Reviewed: 03/05/2021 [employer] Patient Education ?? 2022 [employer]. Follow Up Care 12/03/2023 08:40:05 With:Dillon Connolly MD Address: [address] [place] [id number] When:Within 2 Week(s) Comments:2??weeks?? appointment Discharge instructions * Mary Grace Hansen: PERFORM Event Display: Discharge Instructions Authored Date: [id number] MIKEY VICTORIA :2005 Age:18 years Sex:Female Visit Date:12/03/2023 Primary Care Physician: SIERRA GUAJARDO [facility] Discharge Instructions We would like to thank you for allowing us to assist you with your healthcare needs. The following includes patient education materials and information regarding your injury/illness. Your Next Steps Discharge Orders Discharge Diet Instruction, Regular Discharge Follow Up Instructions, 12/06/23 9:47:00 EDT, When following are met: Feeling improved, Follow-up with Dr. Connolly in 2 weeks . Discharge Patient Instructions, Continue vitamins. Tylenol or Motrin every 4 hours as needed for pain. Gradually increase activity. Notify doctor if temperature greater than 100.5 ??F. Nothing in vagina for 6 weeks or until bleeding stops. Contraception . Discharge Patient Instructions, Breastfeed baby Discharge Patient Instructions, No heavy lifting for 6 weeks. Discharge Patient Instructions, No driving for 48 hours. Scheduled Future Appointments Thursday 10:45 AM EDT ?? With: Pamela Hill APRN Where: [facility] Women's Health Status: Confirmed Thursday 3:00 PM EDT ?? With: Dillon Connolly MD Where: [facility] Women's Health Status: Confirmed Follow Up Appointments Follow Up with??Shashank Ling MD When:??In 2 weeks Why: appointment Where: [address] [address]- Medications What How Much When Instructions Next Dose New ferrous sulfate (ferrous sulfate 325 mg (65 mg elemental iron) oral delayed release tablet) 1 tab Oral (given by mouth) Every day Unchanged acetaminophen (Tylenol 325 mg oral capsule) 1 Capsules Oral (given by mouth) Every 4 hours as needed for as needed for pain Unchanged ascorbic acid (Vitamin C 500 mg oral tablet) 1 tab Oral (given by mouth) Every day ?? What How Much When Comments Stop Taking multivitamin, (C-Titus DHA oral capsule) 1 Capsules Oral (given by mouth) Every day Stop Taking pantoprazole (Protonix 40 mg oral delayed release tablet) 1 tab Oral (given by mouth) Every day Stop Taking promethazine (Phenergan 12.5 mg oral tablet) 1 tab Oral (given by mouth) Every 6 hours as needed for as needed for nausea/vomiting Your Summary Your Care Team Admitting Physician - Dillon Connolly MD Attending Physician - Dillon Connolly MD Primary Care Physician - SIERRA GUAJARDO Referring Physician - Javier Nance MD Your Diagnosis Spontaneous vaginal delivery growth restriction Oligohydramnios without rupture of membranes Rubella non-immune status, antepartum Other underimmunization status Problems Ongoing - Any problem that you are currently receiving treatment for. Encounter for care in third trimester of first growth restriction Oligohydramnios without rupture of membranes labor Rubella non-immune status, antepartum Uterine size-date discrepancy, third trimester Historical - Any problem that you are no longer receiving treatment for. Breech presentation Tests Performed/Pending ABO/Rh Echo Antibody Screen Echo Automated Diff CBC w/ Diff CMP Syphillis Screening Plato [id number] Discharge Vitals Temperature??(Oral) 97.5 ??F (36.4 ??C) Heart Rate??(Monitored) 65 Blood Pressure?? 93/56?? Allergies No Known Allergies Education Materials [facility] POST DISCHARGE INSTRUCTIONS Going home after a Vaginal or delivery GENERAL: You have just had a baby. It is normal to feel tired and worn out over the next several weeks. Sleep is difficult to get when you have a . We recommend sleeping when your baby sleeps if possible or asking someone to watch your so you can nap. Some discomfort is expected after a vaginal delivery. Most times this discomfort can be adequately managed with rest, heat, Ibuprofen, and Tylenol. Occasionally a narcotic may be needed for breakthrough pain. If you begin to have pain that is not controlled with the medications you were sent home with or if you develop fever and chills, please give the office a call. Vaginal bleeding is normal as your uterus works on returning to its normal size. While nursing yourbaby your uterus may feel crampy and your bleeding may increase during these times. You may experience some clots that may be dime size, quarter size and fifty cent size. This is normal. If you continue to pass larger clots, and the flow is increasing over 4 hours, we recommend that you call the office. If you had a vaginal tear that required suturing these sutures will dissolve over the next three weeks. During this process you may notice some yellowish drainage that may have a foul odor. This is the suture material breaking down, and it is a normal process. Keep the tissue clean with your pericare bottle or by taking a bath. Tucks pads can also be helpful. If you have an incision on your abdomen these sutures will dissolve on their own over the next 2 to 3 weeks. There are sutures that are deeper inside that will take 3 months to dissolve. Remember that eating a diet rich in protein will help your incision heal. When showering let the water run over your incision and pat dry with a towel. You do not need to redress the wound. If it rubs against your pants and feels sore, it is fine to place a gauze pad between your incision and your clothing for cushioning. If you are your milk will come in three or four days after you have given . It is normal for your nipples to feel sore for the first couple of weeks, but it is not normal for them to bleed, crack, or feel so raw that you feel like stopping breast feeding. We have support on the OB unit and Pamela is also a sales consultant residential manager in the office. They are very willing to help and provide support in any way they can. During your we talked about what your control plans would be after your delivery. Most times we can make a plan at your six week post checkup and start the plan of your choice at that time. If we know ahead of time what your plan is we can schedule you appropriately and make sure we have what we need on hand when you come for the appointment. It is normal to experience post blues. Your hormone levels change dramatically after you deliver and this can cause you to feel tired, teary eyed, sad, and overwhelmed at times. The post blues typically improve after 2-3 weeks. Post depression can settle in after that and can be very worrisome. If you feel that you cannot stop crying, do not want to see your baby, are struggling to leave your house and/or find that your mind is racing and you can't settle down, please call [facility], and we can see you to discuss depression. ACTIVITY: If you had a vaginal tear that required suturing please avoid sexual intercourse until your six week post visit. If you had no tearing we recommend that you wait to have intercourse until all of your bleeding has stopped. Keep in mind that you can get if you aren't on anything for contraception. If your baby was delivered by please avoid sexual intercourse until your six week post visit. You should also do no heavy lifting for six weeks. Any lifting that takes the strength ofboth of your arms/hands is contraindicated. If you need both hands because whatever you are liftingis cumbersome that is fine. For example, a laundry basket with a few bath towels in it. Also it is good for you to climb stairs and to go for small walks. Your blood volume doubles during . After delivery your body works on removing all of this extra fluid. You may have noticed that your legs and ankles felt pretty swollen prior to delivery. It is normal to see this swelling get worse after delivery. It gets worse if you aren't drinking enough water and/or if you are eating foods with too much sodium. Push the water and watch your salts tohelp the swelling resolve as quickly as possible. Putting your feet up and wearing 2 pairs of socksfor compression can help as well. Most post women who wish to return to work typically do so between 6 and 12 weeks. If you feel you have recovered to the point that you are ready to return to work, please call the office and let one of the secretaries know. It is usually best to discuss your return to work with your employer and pick a date for your return you both agree upon. Let us know that date and a letter will be provided that can be faxed to your employer clearing you to return to work without restriction on yourchosen date. MEDICATIONS: Continue all regularly prescribed medications unless your provider told you to stop a particular medication after your delivery. Continue taking your vitamins until your six week post visit. Ibuprofen is the best medication for your baseline pain control. Taking 600mg by mouth every four hours well help with most of your post pain. Taking it with food is best so it doesn't upset your stomach. Taking it consistently will provide you the greatest pain relief. Tylenol combined with a narcotic: You may have been sent home with a narcotic for pain control. Taking 1 or 2 tablets every 4-6 hours as needed can be helpful for pain you have that isn't covered by the Ibuprofen. We recommend trying one tablet in an attempt to get your pain at a five or less on the pain scale. If after twenty minutes your pain is still greater than a five, you may take the second tablet. There is typically 325mg of Tylenol in each tablet. Be careful not to consume more than 3000mg of Tylenol daily. Most people will find that they need narcotic containing medications sparingly and within a few days not at all. If you had a delivery you may need this medication for a few extra days. These medications are constipating, can leave you slightly sick to your stomach and don't help with inflammation. Increase fluids and fiber. You may need an over the counter stool softener such as Colace or Senna. Taper this type of medication first and then the Ibuprofen. Our office policy is that post op patients can use narcotics in addition to Ibuprofen for up to 7 days. After that, post op pain should be treated with Ibuprofen alone and no further prescriptions for narcotics will be provided. These are the two main medications that we use for post op pain management. See below for the medications that we have recommended you use when you go home. You will have to have the prescriptions filled by your pharmacy. Ibuprofen 600mg by mouth every 4 hours for baseline pain control. Percocet 5/325mg by mouth, 1 or 2 tablets every 4 to 6 hours as needed for pain. Tylenol #3 by mouth, 1 or 2 tablets every 4 to 6 hours as needed for pain. Continue taking your vitamins at least until your six week post visit. Iron sulfate 325mg twice daily - take on an empty stomach with a glass of OJ or a vitamin C tablet until gone. Colace or Senakot once or twice daily to avoid constipation. NorQD for control taken daily at the same time starting in 2 weeks. FOLLOW UP APPOINTMENT: Post appointment is on @ . If this time does not work for you, please call the office to reschedule. The number is . If you need to contact Maternity thenumber is and ask for the Maternity Department. and Breast Care It is normal to have some problems when you start to breastfeed your new baby. But there are thingsthat you can do to take care of yourself and help prevent problems. This includes keeping your breasts healthy and making sure that your baby's mouth attaches (latches) properly to your nipple for feedings. Work with your doctor or specialist to find what works best for you. How does self-care benefit me? If you keep your breasts healthy and you let your baby attach to your nipples in the right way, youwill avoid these problems: ? Cracked or sore nipples. ? Breasts becoming overfilled with milk. ? Plugged milk ducts. ? Low milk supply. ? Breast swelling or infection. How does self-care benefit my baby? By preventing problems with your breasts, you will ensure that your baby will feed well and will gain the right amount of weight. What actions can I take to care for myself during ? Best ways to breastfeed ? Always make sure that your baby latches properly to breastfeed. ? Make sure that your baby is in a proper position. Try different positions to find onethat works best for you and your baby. ? Breastfeed when you feel like you need to make your breasts less full or when your baby shows signsof hunger. This is called on demand. ? Do not delay feedings. ? Try to relax when it is time to feed your baby. This helps your body release milk from your breast. ? To help increase milk flow, do these things before feeding: ? Remove a small amount of milk from your breast. Use a pump or squeeze with your hand. ? Apply warm, moist heat to your breast. Do this in the shower or use hand towels soaked with warm water. ? Massage your breasts. Do this when you are as well. Caring for your breasts ? To help your breasts stay healthy and keep them from getting too dry: ? Avoid using soap on your nipples. ? Let your nipples air-dry for 3???4 minutes after each feeding. ? Do not use things like a electric wheelchair repairer to dry your breasts. This can make the skin dry and will cause irritation and pain. ? Use only cotton bra pads to soak up breast milk that leaks. Change the pads if they become soaked with milk. If you use bra pads that can be thrown away, change them often. ? Put some lanolin on your nipples after . Pure lanolin does not need to be washed off your nipple before you feed your baby again. Pure lanolin is not harmful to your baby. ? Rub some breast milk into your nipples: ? Use your hand to squeeze out a few drops of breast milk. ? Gently massage the milk into your nipples. ? Let your nipples air-dry. ? Wear a supportive nursing bra. Avoid wearing: ? Tight clothing. ? Underwire bras or bras that put pressure on your breasts. ? Use ice to help relieve pain or swelling of your breasts: ? Put ice in a plastic bag. ? Place a towel between your skin and the bag. ? Leave the ice on for 20 minutes, 2???3 times a day. Follow these instructions at home: ? Drink enough fluid to keep your pee (urine) pale yellow. ? Get plenty of rest. Sleep when your baby sleeps. ? Talk to your doctor or specialist before taking any herbal supplements. ? Eat a balanced diet. This includes fruits, vegetables, whole grains, lean proteins, and dairy or dairy alternatives Contact a health care provider if: ? You have nipple pain. ? You have cracking or soreness in your nipples that lasts longer than 1 week. ? Your breasts are overfilled with milk, and this lasts longer than 48 hours. ? You have a fever. ? You have pus-like fluid coming from your nipple. ? You have redness, a rash, swelling, itching, or burning on your breast. ? Your baby does not gain weight. ? Your baby loses weight. ? Your baby is not feeding regularly or is very sleepy and lacks energy. Summary ? There are things that you can do to take care of yourself and help prevent many common problems. ? Always make sure that your baby's mouth attaches (latches) to your nipple properly to breastfeed. ? Keep your nipples from getting too dry, drink plenty of fluid, and get plenty of rest. ? Feed on demand. Do not delay feedings. This information is not intended to replace advice given to you by your health care provider. Make sure you discuss any questions you have with your health care provider. Document Revised: 01/02/2023 Document Reviewed: 03/05/2021 [employer] Patient Education ?? 2022 [employer]. Patient/Home School Liaison Officer Signature Patient Name:MIKEY VICTORIA I have received this information and my questions have been answered. Patient/Home School Liaison Officer Name: Patient/Home School Liaison Officer Signature: Relationship to Patient: Witness Name/Signature: Date: Electronically Signed on: 12/06/2023 09:51 EDTSigned by:MARCELINO Procedure note * Jay Pickett: PERFORM Event Display: Procedure Note Authored Date: [id number] 12/03/2023 19:20:22 Epidural placement for labor and delivery Monitors attached and patient positioned sitting on the side of the bed. L 3-4 interspace identified using landmarks Sterile prep and drape.?? Sterile gloved used. 1% lidocaine used on skin then 17g Touhey needle used for epidural placement. Loss of resistance found at _6.5__ cm Catheter threaded with ease - secured at??_12__ cm No CSF; no heme; no paresthesia Test dose syringe was attached; negative aspiration.?? 5mL 1.5% lidocaine with 1:200,000 epinephrine given.?? Test dose negative. Bolus dose 5ml 0.25% bupivicaine Ropiviaine 0.2% gtt started as __10_ mL/hr Note: significant pt movement during procedure Electronically Signed on 12/03/23 07:21 PM Jay Pickett Note * Dillon Connolly MD: PERFORM Event Display: OB Note Authored Date: [id number] MIKEY VICTORIA ML :2005 Age:18 years Sex:Female Visit Date:12/03/2023 Primary Care Physician: SIERRA GUAJARDO History of Present Illness PPD#2 Status post??Spontaneous Vaginal Delivery.?? The patient is having a severe headache which is worsened by??sitting or standing. ??She??is??eating??and drinking little. She is working on??breast-feeding.?? The Lochial blood flow is tapering. ??Her pain is managed with??oral Tylenol and Ibuprofen. Recovery and Fundal ToneFirm Fundal Height (-2) umbilicus Lochia AmountLight Lochia ColorRubra Physical Exam Vitals & Measurements T:??36.6?C ??(Temporal Artery)?? TMIN:??36.2?C ??(Oral)?? TMAX:??36.6?C ??(Temporal Artery)?? HR:??76??(Monitored)?? RR:??18?? BP:??109/60?? Pain Score:??5?? GENERAL: Cooperative, alert, no acute distress. Appears pale. Not diaphoretic. HEENT: Head is normocephalic, atraumatic. PERRLA.?? HEART: Regular rate and rhythm without murmur. LUNGS: Clear to auscultation bilaterally, no wheeze, rales or rhonchi. ABDOMEN: Soft, nondistended.??Fundus is firm and palpable below the umbilicus. EXTREMITIES: No edema or tenderness. Vagina: No abnormal swelling??or??signs of infection. ??Tapering lochia rubra.?? Assessment/Plan 1.??Spontaneous vaginal delivery??O80 2.?? growth restriction??O36.5931 3.??Oligohydramnios without rupture of membranes??O41.03X1 4.??Rubella non-immune status, antepartum??O09.899 Other underimmunization status??Z28.39 Headache??consistent with??spinal tap during epidural.?? Oral and IV hydration along with??Tylenol and ibuprofen.?? Will consult??anesthesia??if not improved after??48 hours. Delivery Details Baby A Delivery Type:Vaginal EGA at [id number] 5D Maternal Delivery Complications:None LMP/EGA/ANGELIQUE No qualifying data available. Gestational Age (EGA) and ANGELIQUE? * Note: EGA calculated as of 12/05/2023 ?? ANGELIQUE:??12/05/2023?EGA*:??39 weeks 5 days ?Type:??Authoritative?Method Date:??04/15/2023 [...] nonimmune (05/15/23) Problem List/Past Medical History Ongoing Encounter for care in third trimester of first growth restriction Oligohydramnios without rupture of membranes labor Rubella non-immune status, antepartum Uterine size-date discrepancy, third trimester Historical Breech presentation Medications Inpatient acetaminophen, 650 mg= 2 tab, Oral, every 4 hr, PRN benzocaine-menthol 20%-0.5% topical spray, 1 luz, Topical, As Directed, PRN calcium (as carbonate) 500 mg oral tablet, 500 mg= 1 tab, Oral, every 2 hr, PRN calcium (as carbonate) 500 mg oral tablet, 1000 mg= 2 tab, Oral, every 2 hr, PRN docusate-senna 50 mg-8.6 mg oral tablet, 1 tab, Oral, BID, PRN ferrous sulfate, 325 mg= 1 tab, Oral, Daily ibuprofen, 600 mg= 1 tab, Oral, every 4 hr, PRN methylergonovine, 0.2 mg= 1 mL, Intramuscular, Once, PRN miSOPROStol, 1000 mcg= 5 tab, Rectal, Once, PRN multivitamin, , 1 tab, Oral, Daily naloxone, 0.1 mg= 0.25 mL, IV Push, every 5 min, PRN oxytocin, 10 units= 1 mL, Intramuscular, Once, PRN oxytocin IV additive 10 units + LR Diluent 1,000 mL simethicone, 80 mg= 1 tab, Oral, As Directed, PRN tranexamic acid witch jane 50% rectal pad, 1 luz, Topical, As Directed, PRN Home C-Titus DHA oral capsule, 1 cap, [...] tab, Oral, Daily Allergies No Known Allergies Procedure/Surgical History ???Extraction of wisdom tooth (2021) Electronically Signed on 12/05/2023 11:02 AM Dillon Connolly MD * Dillon Connolly MD: PERFORM Event Display: OB Note Authored Date: [id number] MIKEY VICTORIA ML :2005 Age:18 years Sex:Female Visit Date:12/03/2023 Primary Care Physician: SIERRA GUAJARDO History of Present Illness PPD#1 The patient is doing well status post??Spontaneous Vaginal Delivery.?? She is ambulatory and tolerating regular diet.?? She is working on??breast-feeding.?? The Lochial blood flow is tapering. ??Her pain is managed with??oral Tylenol and Ibuprofen. Recovery and Fundal ToneFirm Fundal Height PostpartumAt umbilicus Lochia AmountModerate Lochia ColorRubra Physical Exam Vitals & Measurements T:??36.3?C ??(Temporal Artery)?? TMIN:??36.3?C ??(Temporal Artery)?? TMAX:??36.4?C ??(Temporal Artery)?? HR:??137??(Peripheral)?? RR:??19?? BP:??123/59?? SpO2:??100%?? HT:??0.00??(Percentile)?? HT:??135.1??cm?? WT:??61.21??(Percentile)?? WT:??60.4??kg?? BMI:??96.44??(Percentile)?? BMI:?? 33.09?? BSA:??1.51?? GENERAL: Cooperative, alert, no acute distress. Appears pale. Not diaphoretic. HEENT: Head is normocephalic, atraumatic. PERRLA.?? HEART: Regular rate and rhythm without murmur. LUNGS: Clear to auscultation bilaterally, no wheeze, rales or rhonchi. ABDOMEN: Soft, nondistended.??Fundus is firm and palpable below the umbilicus. EXTREMITIES: No edema or tenderness. Vagina: No abnormal swelling??or??signs of infection. ??Tapering lochia rubra.?? Assessment/Plan 1.??Spontaneous vaginal delivery??O80 2.?? growth restriction??O36.5931 3.??Oligohydramnios without rupture of membranes??O41.03X1 4.??Rubella non-immune status, antepartum??O09.899 Other underimmunization status??Z28.39 Routine care. Delivery Details Baby A Delivery Type:Vaginal EGA at [id number] 5D Maternal Delivery Complications:None LMP/EGA/ANGELIQUE No qualifying data available. Gestational Age (EGA) and ANGELIQUE? * Note: EGA calculated as of 12/04/2023 ?? ANGELIQUE:??12/05/2023?EGA*:??39 weeks 5 days ?Type:??Authoritative?Method Date:??04/15/2023 [...] nonimmune (05/15/23) Problem List/Past Medical History Ongoing Encounter for care in third trimester of first growth restriction Oligohydramnios without rupture of membranes labor Rubella non-immune status, antepartum Uterine size-date discrepancy, third trimester Historical Breech presentation Medications Inpatient acetaminophen, 650 mg= 2 tab, Oral, every 4 hr, PRN benzocaine-menthol 20%-0.5% topical spray, 1 luz, Topical, As Directed, PRN calcium (as carbonate) 500 mg oral tablet, 500 mg= 1 tab, Oral, every 2 hr, PRN calcium (as carbonate) 500 mg oral tablet, 1000 mg= 2 tab, Oral, every 2 hr, PRN docusate-senna 50 mg-8.6 mg oral tablet, 1 tab, Oral, BID, PRN ferrous sulfate, 325 mg= 1 tab, Oral, Daily ibuprofen, 600 mg= 1 tab, Oral, every 4 hr, PRN lidocaine 1% injectable solution, 20 mL, !-percutaneous, Once Methergine, 0.2 mg= 1 mL, Intramuscular, Once methylergonovine, 0.2 mg= 1 mL, Intramuscular, Once, PRN miSOPROStol, 1000 mcg= 5 tab, Rectal, Once, PRN multivitamin, , 1 tab, Oral, Daily naloxone, 0.1 mg= 0.25 mL, IV Push, every 5 min, PRN oxytocin, 10 units= 1 mL, Intramuscular, Once, PRN oxytocin IV additive 10 units + LR Diluent 1,000 mL ropivacaine 0.2% IV additive 200 mg + Premix Diluent 100 mL simethicone, 80 mg= 1 tab, Oral, As Directed, PRN tranexamic acid witch jane 50% rectal pad, 1 luz, Topical, As Directed, PRN Home C-Titus DHA oral capsule, 1 cap, [...] tab, Oral, Daily Allergies No Known Allergies Procedure/Surgical History ???Extraction of wisdom tooth (2021) Electronically Signed on 12/04/2023 08:48 AM Dillon Connolly MD * Dillon Connolly MD: MODIFY, PERFORM Event Display: OB Delivery Summary Authored Date: [id number] MIKEY VICTORIA ML :2005 Age:18 years Sex:Female Visit Date:12/03/2023 Primary Care Physician: SIERRA GUAJARDO Delivery Spontaneous Vaginal Delivery Disposition Mother and baby doing well History/Labor Course 18yo , ANGELIQUE- 12/05/2023 The patient was sent to OB today after her?? appointment for Induction of Labor??due to Severe Intrauterine Growth Restriction and Oligohydramnios. Her blood type is A Positive. ??She is Rubella Non-Immune and GBS Negative. On admission, her cervix was 0 cm / 50%/-3 with a Vertex presentation and Intact membranes.?? She was given Cytotec 25 mcg vaginally. ??After 3 hours a second dose was given. ??Her cervix was??1 cm / 90%/-2??at that time.?? Her contractions increased in frequency and intensity.?? She used Nitrous Oxide 4??labor analgesia. ??At 4 cm dilation she??received an Epidural. ??Her cervix quickly progressed to complete??dilation.?? She??pushed for a couple of contrac tions and accomplished delivery. ??She had a Spontaneous Vaginal Delivery of a live Female . ??The nose and pharynx was suctioned on the perineum prior to deliver the shoulders. ??There was no nuchal cord. ??The baby's delivery was easily accomplished. ??The baby is placed onto her mother's abdomen. ??After delayed clamping, the cord was cut.?? The placenta delivered spontaneously and was intact.?? She was given Pitocin 10 units IM and uterine fundus firmed up well. ??There was a small??first-degree??laceration on the??left side of the vagina. ??This was closed with 3-0 chromic suture.?? EBL??100 mL. Delivery Documentation Baby A Delivery Details Delivery Type:Vaginal Date, Time of :12/03/2023 19:45 EST Delivery of Head Date, Time:12/03/2023 19:45 EST D-EGA at Delivery:39W 5D(Recorded: 12/03/2023 19:49 EST) D-EGA at Delivery:39 weeks 5 days(Recorded: 12/03/2023 19:49 EST) EGA at Eezdi35W 5D(Recorded: 12/03/2023 19:49 EST) Details Outcome:Live Gender:Female Weight:2.620 kg Multiple Gestation Description:Miller Score 1 Minute:8 Score 5 Minute:9 Placenta Details Placenta Delivery Date, Time:12/03/2023 19:49 EST Placenta Delivery Method:Spontaneous Placenta to Pathology:Yes Maternal and Complications Maternal Delivery Complications:None Complications:None Umbilical Cord Description:3 vessel cord Cord Blood Sent to Lab:Yes Assessment/Plan 1.?? growth restriction??O36.5931 2.??Oligohydramnios without rupture of membranes??O41.03X1 3.??Rubella non-immune status, antepartum??O09.899 Other underimmunization status??Z28.39 LMP/EGA/ANGELIQUE No qualifying data available. Gestational Age [...] transabd ?Entered by:??Shashank Ling MD on 05/14/2023 Membrane Status Information Baby A ROM Date, Time:12/03/2023 16:20 EST Membrane Status:Spontaneous rupture of membranes Amniotic Fluid Color/Description:Clear Labor Information Baby A Labor Onset Methods:Medical Induction Induction Methods:Misoprostol Precipitous Labor:No Prolonged Labor:No OB History History?(0,0,0,0)?No previous pregnancies history have been recorded Antepartum Risk Factors Risk Factors, Antepartum Current Preg: Other: 10/06/2023 growth US NI 8.7cm, 1776 grams, 40th percentile (10/06/23) Risk Factors, Antepartum Current Preg: Other: rubella nonimmune (05/15/23) Problem List/Past Medical History Ongoing Encounter for care in third trimester of first growth restriction Oligohydramnios without rupture of membranes labor Rubella non-immune status, antepartum Uterine size-date discrepancy, third trimester Historical Breech presentation Medications Inpatient acetaminophen, 650 mg= 2 tab, Oral, every 4 hr, PRN benzocaine-menthol 20%-0.5% topical spray, 1 luz, Topical, As Directed, PRN calcium (as carbonate) 500 mg oral tablet, 500 mg= 1 tab, Oral, every 2 hr, PRN calcium (as carbonate) 500 mg oral tablet, 1000 mg= 2 tab, Oral, every 2 hr, PRN docusate-senna 50 mg-8.6 mg oral tablet, 1 tab, Oral, BID, PRN ferrous sulfate, 325 mg= 1 tab, Oral, Daily ibuprofen, 600 mg= 1 tab, Oral, every 4 hr, PRN lidocaine 1% injectable solution, 20 mL, !-percutaneous, Once Methergine, 0.2 mg, Intramuscular, Once methylergonovine, 0.2 mg= 1 mL, Intramuscular, Once, PRN miSOPROStol, 1000 mcg, Rectal, Once, PRN miSOPROStol, 25 mcg= 0.25 tab, Vaginal, every 3 hr, PRN miSOPROStol, 50 mcg= 0.5 tab, Vaginal, every 3 hr, PRN morphine, 10 mg= 1 mL, Intramuscular, Once morphine, 12 mg= 3 mL, Intramuscular, Once multivitamin, , 1 tab, Oral, Daily naloxone, 0.1 mg= 0.25 mL, IV Push, every 5 min, PRN oxytocin, 10 units= 1 mL, Intramuscular, Once, PRN oxytocin IV additive 10 units + LR Diluent 1,000 mL oxytocin IV additive 30 units + LR Diluent 500 mL Phenergan, 25 mg= 1 mL, Intramuscular, Once ropivacaine 0.2% IV additive 200 mg + Premix Diluent 100 mL simethicone, 80 mg= 1 tab, Oral, As Directed, PRN tranexamic acid witch jane 50% rectal pad, 1 luz, Topical, As Directed, PRN Home C-Titus DHA oral capsule, 1 cap, [...] tab, Oral, Daily Allergies No Known Allergies Transcribed Labs ABO/Rh Echo: A POS Blood [...] Performed: 05/14/23 Rubella,Transcribed: Nonimmune Electronically Signed on 12/04/2023 08:46 AM Dillon Connolly MD History and physical note * Dillon Connolly MD: PERFORM Event Display: History and Physical Authored Date: [id number] MIKEY VICTORIA :2005 Age:18 years Sex:Female Visit Date:12/03/2023 Primary Care Physician: SIERRA GUAJARDO Reason for Visit OB Induction History of Present Illness 18yo , ANGELIQUE- 12/05/2023 The patient was sent to OB today after her?? appointment for Induction of Labor??due to Severe Intrauterine Growth Restriction and Oligohydramnios.?? Follow-up Ultrasound today??Showed an??estimated Weight of 2637 g which is the 2nd percentile for??growth.?? The NI was 4.8 cm.?? Her blood type is A Positive. ??She is Rubella Non-Immune and GBS Negative. Review of Systems Constitutional: No fevers, chills, [...] 4 Psychiatric: No anxiety, depression Physical Exam Vitals & Measurements HT:??0.00??(Percentile)?? HT:??135.1??cm?? WT:??61.21??(Percentile)?? WT:??60.4??kg?? BMI:??96.44??(Percentile)?? BMI:??33.09?? BSA:??1.51?? General: Alert and oriented, well nourished, no [...] Cooperative, appropriate mood and affect ? Cervix: 0cm/50%/-3, Vertex presentation, Intact Membranes ? Heart Monitor: Reassuring?? heart rate tracing. ??No??decelerations or contractions. Assessment/Plan 1.?? growth restriction??O36.5931 2.??Oligohydramnios without rupture of membranes??O41.03X1 3.??Rubella non-immune status, antepartum??O09.899 Other underimmunization status??Z28.39 Orders: miSOPROStol, 25 mcg = 0.25 tab, Vaginal, Tab, every 3 hr, PRN other (see comment), First Dose: 12/03/23 8:51:00 EST, Routine miSOPROStol, 50 mcg = 0.5 tab, Vaginal, Tab, every 3 hr, PRN other (see comment), First Dose: 12/03/23 8:51:00 EST, Routine morphine, 10 mg = 1 mL, Intramuscular, Injection, Once, First Dose: 12/03/23 9:00:00 EST, Stop Date: 12/03/23 9:00:00 EST, Physician Stop, Routine morphine, 12 mg = 3 mL, Intramuscular, Injection, Once, First Dose: 12/03/23 9:00:00 EST, Stop Date: 12/03/23 9:00:00 EST, Physician Stop, Routine oxytocin IV additive 30 units + LR Diluent 500 mL, Total Volume (mL): 503, 500 mL, Vial, IV, Titrate Per Protocol, Start Date: 12/03/23 8:51:00 EST, 60.4 kg, Populate Charting Weight From Order, 1.66, m2 Phenergan, 25 mg = 1 mL, Intramuscular, Vial, Once, First Dose: 12/03/23 9:00:00 EST, Stop Date: 12/03/23 9:00:00 EST, Physician Stop, Routine ABO/Rh Echo, Blood, Expedite, 12/03/23 8:51:00 EST, Once, Lab Collect ABSC Echo, Blood, Expedite, 12/03/23 8:51:00 EST, Once, Lab Collect Bathroom Privileges, 12/03/23 8:51:00 EST, PRN, 12/03/23 8:51:00 EST, 12/03/23 8:51:00 EST CBC w/ Diff, Blood, Routine, 12/03/23 8:51:00 EST, Once, Lab Collect Communication Order, 12/03/23 8:51:00 EST, If not voiding, straight cath as needed, Q12 hour frequency Comprehensive Metabolic Panel, Blood, Expedite, 12/03/23 8:51:00 EST, Once, Lab Collect Diet Order, 12/03/23 8:51:00 EST, Regular Heart Monitoring, 12/03/23 8:51:00 EST, PRN, Continuous monitoring during a) epidural anesthesia;b) oxytocin administration, c) 2 hours after use of Cytotec Hourly Rounding, 12/03/23 8:51:00 EST, every 1 hr Isolation Precautions, 12/03/23 8:51:00 EST, [place] Precautions Misc Nursing Task, 12/03/23 8:51:00 EST, every 2 hr, 2hrs post Misoprostol administration (castings drafter Q30min) NST on arrival LTTL, 12/03/23 8:51:00 EST, Stop date 12/03/23 8:51:00 EST Oxygen Therapy, to keeps sats >= 94% via N/C or simple mask, Gerri Sanchez PSO Admit to Inpatient, Obstetrics, Inpatient, 12/03/23 8:43:00 EST, 12/03/23 8:43:00 EST, 248:43:00 EST, Less than 96 hours Resuscitation Status, 12/03/23 8:51:00 EST, Full Code Shower Privileges, 12/03/23 8:51:00 EST, PRN T pallidum Screening Plato LC, Blood, Expedite, 12/03/23 8:51:00 EST, Once, Lab Collect Temperature, 12/03/23 8:51:00 EST, every 1 hr, After ROM. Vaginal Exam, 12/03/23 8:51:00 EST, Frequency Once, On Admission to Unit, Stop date 12/03/23 8:51:00 EST Vaginal Exam, 12/03/23 8:51:00 EST, Frequency As Directed, Prior to pain medication administration. Vaginal Exam, 12/03/23 8:51:00 EST, Frequency Once, Prior to epidural placement., Stop date 12/03/23 8:51:00 EST Vital Signs, 12/03/23 8:51:00 EST, every 2 hr, while in labor. Cytotec 25 mcg vaginally. ??We discussed??Plan of Care for??Labor Induction with??vaginal Misoprostol??and??IV Pitocin. ??She wants an epidural when in labor. LMP/EGA/ANGELIQUE No qualifying data available. Gestational Age [...] nonimmune (05/15/23) Problem List/Past Medical History Ongoing Encounter for care in third trimester of first growth restriction Oligohydramnios without rupture of membranes labor Rubella non-immune status, antepartum Uterine size-date discrepancy, third trimester Historical Breech presentation Procedure/Surgical History ???Extraction of wisdom tooth (2021) Medications Inpatient miSOPROStol, 25 mcg= 0.25 tab, Vaginal, every 3 hr, PRN miSOPROStol, 50 mcg= 0.5 tab, Vaginal, every 3 hr, PRN morphine, 10 mg= 1 mL, Intramuscular, Once morphine, 12 mg= 3 mL, Intramuscular, Once oxytocin IV additive 30 units + LR Diluent 500 mL Phenergan, 25 mg= 1 mL, Intramuscular, Once Home C-Titus DHA oral capsule, 1 cap, [...] 05/14/23 Rubella,Transcribed: Nonimmune Electronically Signed on 12/03/23 10:26 AM Dillon Connolly MD Discharge summary * Dillon Connolly MD: PERFORM Event Display: Discharge Summary Authored Date: [id number] JULIEN, MIKEY ML :2005 Age:18 years Sex:Female Visit Date:12/03/2023 Primary Care Physician: SIERRA GUAJARDO History of Present Illness PPD#3 Status post??Spontaneous Vaginal Delivery.?? Headache has improved with??rest and hydration.??She??is??eating??and drinking more. She is working on??breast- feeding.?? The Lochial blood flow is tapering. ??Her pain is managed with??oral Tylenol and Ibuprofen. Recovery and Fundal ToneFirm Fundal Height (-2) umbilicus Lochia AmountLight Lochia ColorRubra Physical Exam Vitals & Measurements T:??36.4?C ??(Oral)?? TMIN:??36.4?C ??(Oral)?? TMAX:??36.5?C ??(Oral)?? HR:??65??(Monitored)?? BP:??93/56?? Pain Score:??8?? GENERAL: Cooperative, alert, no acute distress. Appears pale. Not diaphoretic. HEENT: Head is normocephalic, atraumatic. PERRLA.?? HEART: Regular rate and rhythm without murmur. LUNGS: Clear to auscultation bilaterally, no wheeze, rales or rhonchi. ABDOMEN: Soft, nondistended.??Fundus is firm and palpable below the umbilicus. EXTREMITIES: No edema or tenderness. Vagina: No abnormal swelling??or??signs of infection. ??Tapering lochia rubra.?? Assessment/Plan 1.??Spontaneous vaginal delivery??O80 2.?? growth restriction??O36.5931 3.??Oligohydramnios without rupture of membranes??O41.03X1 4.??Rubella non-immune status, antepartum??O09.899 Other underimmunization status??Z28.39 Orders: ferrous sulfate 325 mg (65 mg elemental iron) oral delayed release tablet, 325 mg = 1 tab, Oral, Daily, 0 Refill(s) Discharge Diet Instruction, Regular Discharge Follow Up Instructions, 12/06/23 9:47:00 EDT, When following are met: Feeling improved, Follow-up with Dr. Connolly in 2 weeks . Discharge Patient, 12/06/23 9:47:00 EDT, Home Independently Discharge Patient Instructions, Continue vitamins. Tylenol or Motrin every 4 hours as needed for pain. Gradually increase activity. Notify doctor if temperature greater than 100.5 ??F. Nothing in vagina for 6 weeks or until bleeding stops. Contraception . Discharge Patient Instructions, No driving for 48 hours. Discharge Patient Instructions, No heavy lifting for 6 weeks. Discharge Patient Instructions, Breastfeed baby [facility] Nursing Task, 12/06/23 9:47:00 EDT, Stop date 12/06/23 9:47:00 EDT, Check with pharmacy / [facility] for home meds prior to discharge Patient Education, 12/06/23 9:47:00 EDT, Stop date 12/06/23 9:47:00 EDT, teaching per protocol for mother and baby. Discharge. ??Discharge teaching done. Delivery Details Baby A Delivery Type:Vaginal EGA at [id number] 5D Maternal Delivery Complications:None LMP/EGA/ANGELIQUE No qualifying data available. Gestational Age (EGA) and ANGELIQUE? * Note: EGA calculated as of 12/06/2023 ?? ANGELIQUE:??12/05/2023?EGA*:??39 weeks 5 days ?Type:??Authoritative?Method Date:??04/15/2023 [...] nonimmune (05/15/23) Problem List/Past Medical History Ongoing Encounter for care in third trimester of first growth restriction Oligohydramnios without rupture of membranes labor Rubella non-immune status, antepartum Uterine size-date discrepancy, third trimester Historical Breech presentation Medications Inpatient acetaminophen, 650 mg= 2 tab, Oral, every 4 hr, PRN benzocaine-menthol 20%-0.5% topical spray, 1 luz, Topical, As Directed, PRN calcium (as carbonate) 500 mg oral tablet, 500 mg= 1 tab, Oral, every 2 hr, PRN calcium (as carbonate) 500 mg oral tablet, 1000 mg= 2 tab, Oral, every 2 hr, PRN docusate-senna 50 mg-8.6 mg oral tablet, 1 tab, Oral, BID, PRN ferrous sulfate, 325 mg= 1 tab, Oral, Daily ibuprofen, 600 mg= 1 tab, Oral, every 4 hr, PRN methylergonovine, 0.2 mg= 1 mL, Intramuscular, Once, PRN miSOPROStol, 1000 mcg= 5 tab, Rectal, Once, PRN multivitamin, , 1 tab, Oral, Daily naloxone, 0.1 mg= 0.25 mL, IV Push, every 5 min, PRN oxytocin, 10 units= 1 mL, Intramuscular, Once, PRN oxytocin IV additive 10 units + LR Diluent 1,000 mL simethicone, 80 mg= 1 tab, Oral, As Directed, PRN tranexamic acid witch jane 50% rectal pad, 1 luz, Topical, As Directed, PRN Home ferrous sulfate 325 mg (65 mg elemental iron) oral delayed release tablet, 325 mg= 1 tab, Oral, Daily Tylenol 325 mg oral capsule, 325 mg= 1 cap, Oral, every 4 hr, PRN Vitamin C 500 mg oral tablet, 500 mg= 1 tab, Oral, Daily Allergies No Known Allergies Procedure/Surgical History ???Extraction of wisdom tooth (2021) Electronically Signed on 12/06/23 09:52 AM Dillon Connolly MD Patient Care team information Care Team Personnel Name: SIERRA GUAJARDO Position: No Access Member Role: Primary Care Physician Address: Address: [id number] [place] [address] Care Team Related Persons Name: JULIEN LADONNA Address: [place] [id number] Name: FLORESITA VICTORIA Address: [address] [id number] [facility]
--- OUTSIDE RECORDS SUMMARY | 2024-05-26 17:16 | XMS_ITS | Encounter Summary ---
Author Organization [facility] Address [address] [place] [address] Care Team Providers Care Credit Verification Clerk Name Role Phone Unavailable Primary Care Provider Unavailabl e Encounter Details Date Type Department Care Team (Late st Contact Info) Description 05/03/2021 Lab Requisition [facility] [address] [place] [address] Outr Resulting Lab, Provider Social History Tobacco Use Types Packs/Day Years Used Date Smoking Tobacco: Never Assessed Interpersonal Safety Answer Date Record ed Physically Hurt Never 02/06/2021 Verbally Threaten Not on file 02/06/2021 Sex and Gender Information Value Date Recorded Sex Assigned at Not on file Gender Identity Not on file Sexual Orientation Not on file documented as of this encounter Plan of Treatment Not on file documented as of this encounter Procedures Procedure Name Priority Date/Time Associated Diagnosis Comments ZZCOVID-19 TEST [facility] PCR Today 05/02/2021 14:00 EDT COVID-19 TESTING Routine 05/02/2021 14:0 0 EDT documented in this encounter Results * COVID-19 TEST [facility] PCR (05/02/2021 14:00 EDT) Swab ENTIRE NASOPHARYNX / Unknown 05/02/2021 14:00 EDT 05/03/2021 16:50 EDT Provider Outr Resulting Lab MICROBIOLOGY - GENERAL ORDERABLES [facility] [address] [place] [address] * COVID-19 TESTING (05/02/2021 14:00 EDT) COVID-19 rt-PCR Result Negative Negative 05/04/2021 15:55 EDT [facility] Comment: This test has not been FDA cleared or approved. This test has been authorized by FDA under an EUA for use by authorized laboratories. This test has been authorized only for detection of nucleic acid from 2019-nCoV, not for any other viruses or pathogens. This test is only authorized for the duration of the declaration that circumstances exist justifying the authorization of emergency use of in vitro diagnostic tests for detection and/or diagnosis of 2019-nCoV under section 564(b)(1) of Act, 21 U.S.C ?? 360bbb-3(b) (1), unless the authorization is terminated or revoked sooner. Negative results do not preclude 2019-nCoV infection and should not be used as the sole basis for treatment or other patient management decisions. Negative results must be combined with clinical observations, patient history, and epidemiological information. This test was developed and its performance characteristics determined by [facility]. It has not been cleared or approved by the US Food and Drug Administration. FDA does not require this test to go through premarket FDA review. This test is used for clinical purposes. It should not be regarded as investigational or for research. This laboratory is certified under the Clinical Laboratory Improvement Amendments (CLIA) as qualified to perform high complexity clinical laboratory testing. This test is based on the CDC COVID-19 Emergency Use Authorization (EUA) assay, with minor modification as defined by the FDA Performed on the Book[employer] 7 Flex RT-PCR System. Performing Lab [facility] 05/04/2021 15:55 EDT [facility] Swab 05/02/2021 14:0 0 EDT 05/03/2021 16:50 EDT Provider Outr Resulting Lab MICROBIOLOGY - GENERAL ORDERABLES [facility] [address] [place] [address] documented in this encounter Visit Diagnoses Not on filedocumented in this encounter
--- OUTSIDE RECORDS SUMMARY | 2024-05-26 17:16 | XMS_ITS | Continuity of Care Document ---
Author Organization [facility] Ambulatory [facility]ics Address [address] [place] [address] Care Team Providers Care Waitstaff Name Role Phone SIERRA GUAJARDO Primary Care Physician Encounter [facility] NBR [id number] Date(s): 12/28/23 - 12/28/23 [facility] [address] [place], [place] [address] Encounter Diagnosis Encounter for visit(Discharge Diagnosis) - 12/28/23 Spontaneous vaginal delivery(Discharge Diagnosis) - 12/28/23 Discharge Disposition: Home or Self Care Attending Physician: Dillon Connolly MD Allergies, Adverse Reactions, Alerts No Known Allergies Assessment and Plan Extracted from: Title: Visit Note Author:Dillon Connolly MD Date:12/28/23 1.??Encounter for visit??Z39.2 2.??Spontaneous vaginal delivery??O80 The patient is doing very well overall. She is physically fine with a normal cardiac exam and tapering/finished lochial flow. She and the baby are bonding well and, as expected, are having mostly good days. ??We discussed control??options and she plans to use Nexplanon. Future Appointments Medications ferrous sulfate 325 mg [...] Oligohydramnios without rupture of membranes Confirmed Active Encounter for visit Confirmed Active labor Confirmed Active Rubella non-immune status, antepartum Confirmed Active Encounter for care in third trimester of first Confirmed Active Uterine size-date discrepancy, third trimester Confirmed Active Spontaneous vaginal delivery Confirmed Active Procedures Procedure Date Related Diagnosis Body Site Status Extraction of wisdom tooth 2021 Completed 1X 4 Vital Signs Most recent to oldest [Reference Range]: 1 Blood Pressure [90-140/60-90 mmHg] 90/64 mmHg (12/28/23 1:03 PM) Mean Arterial Pressure, Cuff [65-140 mmH g] 73 mmHg (12/28/23 1:03 PM) Weight 53.1 kg (12/28/23 1:03 PM) Weight Measured (lbs) 117.065 lb (12/28/23 1:03 PM) Weight Dosing 53.100 kg (12/28/23 1:03 PM) [place] Body Weight Calculated 57 kg (12/28/23 1:03 PM) Height 165.1 cm (12/28/23 1:03 PM) Height/Length Measured (inches) 65 inch (12/28/23 1:03 PM) BSA Measured 1.56 m2 (12/28/23 1:03 PM) Body Mass Index 19.48 kg/m2 (12/28/23 1:03 PM) Body Mass Index Percentile 21.65 1 (12/28/23 1:03 PM) Height/Length Percentile 61.06 2 (12/28/23 1:03 PM) Weight Percentile 29.68 3 (12/28/23 1:03 PM) 1Result Comment: ^~:!Percentile Source -CDC 2Result Comment: ^~:!Percentile Source -CDC 3Result Comment: ^~:!Percentile Source -CDC Social History Social History Type Response Smoking Status Smoking tobacco use: Never tobacco user;Never entered on: 06/11/23 Sex Female Hospital Discharge Instructions Follow Up Care 12/24/2023 16:07:49 With:Dillon Connolly MD Address: [address] [place] [id number] When:Within 2 Week(s) Comments:6 weeks?? appointment??and Nexplanon??insertion summary Document * Event Display: Summary Document Authored Date: [id number] MIKEY VICTORIA : 2005 Age: 18 Years [...] By: Pamela Hill APRN GBS was neg /2 Date: 11/04/23 15:23 (35 weeks) By: Javier [...] 04 Problems (Active Problems Only) (SNOMED CT: 163922428, Onset: 04/15/23) Rubella non-immune (SNOMED CT: 514193038, Onset: --) Third trimester (SNOMED CT: 89705532, Onset: --) Uterine size for dates discrepancy (SNOMED CT: 3195647723, Onset: --) labor in third trimester with delivery in third trimester (SNOMED CT: 0531782030, Onset: --) Oligohydramnios (SNOMED CT: 78975496, Onset: --) Disorder of [facility]: 990[facility]2877, Onset: --) MIKEY VICTORIA : 04 Risk Factors and Genetic Screening All Results Documented Since 04/15/2023 Risk Factors (Current ) Unique Risk Factors: Other: 10/06/2023 growth US NI 8.7cm, 1776 grams, 40th percentile, Other: rubella nonimmune Ethnic Screening Self: , *Other *Comments Other: [facility] Genetic Disorders Screening Baby's Mother - Negative: Defect, Cystic Fibrosis, Down Syndrome, Hemophilia, Rafa's [...] Shashank Ling MD on 05/14/2023 MIKEY VICTORIA ML : 04 Measurements Pre- Weight: 49.90 kg [...] Color: Normal for ethnicity (12/05/23) Skin Description: Alan[place], Dry (12/03/23) Skin Temperature: Warm (12/06/23) Skin Turgor: Elastic (12/06/23) Skin Moisture General: Dry (12/06/23) Skin Integrity: Intact, no abnormalities (12/05/23) Mucous Membrane Color: Alanreed (12/06/23) MIKEY VICTORIA : 04 Blood Types and Anti-D Immune Globulin Blood Type and Screen Mother ABO/Rh: -- Mother Antibody Screen: -- Father of Baby ABO/Rh: -- Father of Baby Antibody Screen: -- Anti-D Immune Globulin Rho(D) Initial Status: -- Rho(D) 28 Week Status: -- Rho(D) Dates Given: -- MIKEY VICTORIA : 04 Tests and Lab Results [...] K/mcL 05/14/23 (10 weeks) (1.4 - 6.5) [place] Absolute 0.3 K/mcL 05/14/23 (10 weeks) (0.1 - 0.6) Baso Absolute 0.0 K/mcL 05/14/23 (10 weeks) (0.0 - 0.2) Basophil Auto 0.5 % 05/14/23 (10 weeks) (0.0 - 0.8) [place] Auto 4.4 % 05/14/23 (10 weeks) (1.7 [...] K/mcL 09/03/23 ( weeks) (1.4 - 6.5) [place] Absolute 0.5 K/mcL 09/03/23 ( weeks) (0.1 - 0.6) Lymph Absolute 1.7 K/mcL 09/03/23 ( weeks) (1.2 - 3.4) Baso Absolute 0.0 K/mcL 09/03/23 ( weeks) (0.0 - 0.2) [place] Auto 4.7 % 09/03/23 ( weeks) (1.7 [...] K/mcL 10/30/23 (34 weeks) (1.2 - 3.4) [place] Auto 5.3 % 10/30/23 (34 weeks) (1.7 - 9.3) [place] Absolute (H) 0.8 K/mcL 10/30/23 (34 weeks) [...] K/mcL 12/03/23 (39 weeks) (1.4 - 6.5) [place] Absolute 0.5 K/mcL 12/03/23 (39 weeks) (0.1 - 0.6) Neutro Auto (H) 79.8 % 12/03/23 (39 weeks) (42.2 - 75.2) Baso Absolute 0.0 K/mcL 12/03/23 (39 weeks) (0.0 - 0.2) Lymph Absolute 1.7 K/mcL 12/03/23 (39 weeks) (1.2 - 3.4) Eos, Auto 0.10 % 12/03/23 (39 weeks) (0.00 - 3.00) [place] Auto 4.7 % 12/03/23 (39 weeks) (1.7 [...] 1 Refill(s) Status: Discontinued Ordered: 04/15/23 Provider: Jaiver Nance MD DHA 200 mg oral capsule [...] benzocaine-menthol 20%-0.5% topical spray (benzocaine-menthol 20-0.5% topical [address] [LTTL]) 1 luz, Topical, As Directed, PRN: [...] PRN: bleeding Status: Discontinued Ordered: 12/03/23 Provider: MD pablo Shannon jane 50% rectal pad (Witch Jane 50% [...] Employment/School Employed, Work/School description: Working at a [employer]. Previous employment/school: In process of taking GED.. Exercise Exercise frequency: 3-4 times/week. Home/Environment Lives with Father, Mother, Siblings. Living situation: Home/Independent. Sexual Sexually active: Yes. Sexual orientation: Straight or heterosexual. Substance Abuse Never Tobacco Never tobacco user Tobacco Use:. Never Smokeless Tobacco use:. Electronic Cigarette/Vaping Electronic Cigarette Use: Never. Psychosocial History No active psychosocial history has been recorded MIKEY VICTORIA : 04 Infection History Infection history negative or not recorded MIKEY VICTORIA : 04 Anesthesia and Transfusions Prior Anesthesia or Transfusion Received: Prior general anesthesia, No prior transfusion Prior Anesthesia Reaction(s): -- Prior Transfusion Reaction(s): -- Blood Transfusion Acceptable to Patient: -- MIKEY VICTORIA : 04 Plan and Patient Requests Desired Delivery Location: -- Education: -- Written Plan: -- Written Plan Location: -- Support Person/Patient Accounts Coordinator Relationship to Pt: -- Oral Intake OB: -- Labor Preferences: -- Non-Medicinal Pain Relief: -- Anesthesia/Pain Medication During Labor: -- Delivery Plan: -- Infant Feeding: -- Circumcision: -- Baby For Adoption: -- Patient Requests: -- Father of the Baby's Name: -- Lvn Selected: -- Surrogate : -- Support Person's Name: -- MIKEY VICTORIA : 04 Education Educational Materials/Leaflets Provided Title/Topic Date Provided Angie [facility] - Vaginal or Delivery Post Discharge Instructions 12/06/23 and Breast Care, [id number] 12/06/23 Influenza, Adult 11/24/23 Labor, [id number] 10/31/23 MIKEY VICTORIA : 04 Registration and Information Race: White Ethnicity: Not , , or Kittitian Origin Marital Status: Single Language(s): Libyan Evangelical Preference(s): Protestant Occupation/Education: Address, Phone, and Health Plans Home Address: [place]SE [address] [phone] (Home), , -- Health Plans: 1 - SELF PAY Member/Group: -- Deductible: $ -- Type: Self Pay Address: [facility] [address] [address] Phone: -- 2 - [place] Member/Group: [id number] Deductible: $ -- Type: Medicaid Address: [address] [id number] 3 - [place] Member/Group: [id number] Deductible: $ -- Type: Medicaid Address: [address] [id number] General Information OB Provider(s) Information: Not explicitly recorded. May be noted in encounter section below. See below for detailed information for all visits and information. Delivery Center/Hospital Information: -- [facility] Provider Information: -- Referring Provider Information: Javier [...] Clinic 12/21/2023 [facility] Pamela Hill, [facility] 12/07/2023 [facility] -- Clinic [facility] 12/03/2023 Sofia Nance MD Inpatient Inpatient 12/03/2023 Sofia Connolly MD Inpatient Inpatient 12/03/2023 4 Javier Nance MD Clinic [facility] Nance MD Outpatient 12/01/2023 4 Javier Nance MD Clinic Clinic 11/25/2023 [facility] -- Between Visit -- 11/24/2023 1 Eli Osorio, [facility] Clinic Clinic 11/24/2023 T2 Jvaier Nance MD Clinic Clinic 11/18/2023 1 Shashank Ling MD Clinic Clinic 11/09/2023 [facility] Pamela Hill, [facility] Clinic Clinic 11/04/2023 5 Javier Nance MD Clinic Clinic 11/02/2023 [facility] -- Between Visit -- 10/30/2023 Sofia Connolly MD Inpatient Inpatient 10/21/2023 [facility] Shashank Ling MD Clinic Clinic 10/06/2023 [facility] Pamela Hill, [facility] Clinic Clinic 10/06/2023 [facility] Pamela Hill, [facility] Outpatient 09/30/2023 [facility] Pamela Hill, [facility] Clinic Clinic 09/17/2023 [facility] Pamela Hill APRN Clinic Clinic 09/04/2023 [facility] -- Between Visit -- 2023 [facility] Javier Nance MD Outpatient Lab 2023 4 Javier Nance MD Clinic Clinic 08/07/2023 4 Javier Nance MD Clinic Clinic 08/06/2023 [facility] -- Between Visit -- 07/31/2023 [facility] Dillon Connolly MD Outpatient 07/10/2023 [facility] -- Between Visit -- 07/10/2023 3 Dillon Connolly MD Clinic Clinic 07/10/2023 [facility] Dillon Connolly MD Outpatient 06/11/2023 [facility] -- Between Visit -- 06/11/2023 [facility] Dillon Connolly MD Outpatient Lab 06/11/2023 T2 Dillon Connolly MD Clinic Clinic 05/14/2023 [facility] Shashank Ling MD Outpatient Lab 05/14/2023 [facility] Shashank Ling MD Outpatient Lab 05/14/2023 3 Shashank Ling MD Clinic Clinic 04/15/2023 4 Javier Nance MD Clinic Clinic MIKEY VICTORIA : 04 Visit / Encounter Location Information The following information represents known location and contact information for locations visitedduring [facility] Ambulatory [facility] Business Address: [address] [place] [address] Phone:[phone] [facility] Business Address: [address] [place] [address] Phone: No phone numbers found on file for location MIKEY VICTORIA : 04 Visit Diagnosis (Note: All [...] None Umbilical Cord Description: 3 vessel cord Infant Data Gender: Female Outcome: Live Security Tag Number: [id number] Weight: 2.620 kg Score 1 Minute: 8 Score 5 Minute: 9 Lvn: Mor Silva MD Note: Items documented with '--' had no clinical data which qualified at time of report creation END OF REPORT Physician Outpatient Note * Dillon Connolly MD: PERFORM Event Display: Office Clinic Note Physician Authored Date: [id number] MIKEY VICTORIA :2005 Age:18 years Sex:Female Visit Date:12/28/2023 Primary Care Physician: SIERRA GUAJARDO Chief Complaint Post appointment, @ [facility] 12/03/2023, some ongoing cramping, lochial flow is scant, brown in color, no concerns, would like Nexplanon for control. Additional Information Patient is taking an antibiotic for toe infection, does not know what it is. Patient is mostly breast feeding, supplementing w/formula occasionally. Does have some ongoing cramping, especially when breast feeding. History of Present Illness 18yo 001, The patient is here today for a appointment. ??She had a Spontaneous Vaginal Delivery??on 12/03/2023??at 39-5/7 weeks.?Her??labor was??induced??due to Severe Intrauterine Growth Restriction and Oligohydramnios.?? weight was 5 pounds 12 ounces. There was a small first-degreelaceration on the left side of the vagina repaired at the time of delivery. ?? Since delivery,??she has been doing well. ??She is breast- feeding??and??supplementing with formula.?? The baby is sleeping well. ??Her moods and emotions have been good. ??There is been plenty of help at home.?? Her bleeding has almost stopped.?? She plans to use Nexplanon for?control. Physical Exam Vitals & Measurements BP:??90/64?? HT:??165.1??cm?? HT:??61.06??(Percentile)?? WT:??53.1??kg?? WT:??29.68??(Percentile)?? BMI:??19.48?? BMI:??21.65??(Percentile)?? BSA:??1.56?? GENERAL: Cooperative, alert, no acute distress. HEENT: Head is normocephalic, atraumatic. PERRLA.?? HEART: Regular rate and rhythm without murmur. LUNGS: Clear to auscultation bilaterally, no wheeze, rales or rhonchi. ABDOMEN: Soft, nontender, nondistended. ??No palpable masses. EXTREMITIES: No edema or tenderness. PSYCHIATRIC: Cooperative, appropriate mood and affect ?? Vulva: No abnormal swelling.?Laceration healing well. Vagina: Lochia rubra. Perineum: Intact?? Assessment/Plan 1.??Encounter for visit??Z39.2 2.??Spontaneous vaginal delivery??O80 The patient is doing very well overall. She is physically fine with a normal cardiac exam and tapering/finished lochial flow. She and the baby are bonding well and, as expected, are having mostly good days. ??We discussed control??options and she plans to use Nexplanon. Follow Up Instructions With When Contact Information Dillon Connolly MD In 2 weeks [address] [place] [address] Additional Instructions: 6 weeks?? appointment??and Nexplanon??insertion Problem List/Past Medical History Ongoing Encounter for visit Encounter for care in third trimester of first growth restriction Oligohydramnios without rupture of membranes labor Rubella non-immune status, antepartum Spontaneous vaginal delivery Uterine size-date discrepancy, third trimester Historical Breech presentation Procedure/Surgical History ???Extraction of wisdom tooth (2021) Medications ferrous sulfate 325 mg (65 mg [...] (M) and Grandmother (P). Electronically Signed on 12/28/23 01:49 PM Dillon Connolly MD Patient Care team information Care Team Personnel Name: SIERRA GUAJARDO Position: No Access Member Role: Primary Care Physician Address: Address: [address] [address]- Care Team Related Persons Name: FLORESITA VICTORIA Address: Home [address] [place], [place] [id number] [facility]
--- OUTSIDE RECORDS SUMMARY | 2024-05-26 17:16 | XMS_ITS | Referral Summary ---
Author Organization [facility] Address [address] [place] [address] Care Team Providers Care Welding Pantograph Machine Operator Name Role Phone Unavailable Primary Care Provider Unavailabl e Social History Tobacco Use Types Packs/Day Years Used Date Smoking Tobacco: Never Assessed Interpersonal Safety Answer Date Record ed Physically Hurt Never 02/06/2021 Verbally Threaten Not on file 02/06/2021 Sex and Gender Information Value Date Recorded Sex Assigned at Not on file Gender Identity Not on file Sexual Orientation Not on file Plan of Treatment Not on file
--- OUTSIDE RECORDS SUMMARY | 2024-05-26 17:16 | XMS_ITS | Clinical Summary ---
Author Organization [facility] Address [address] [place] [address] Care Team Providers Care Endoscopy Tech Name Role Phone Unavailable Primary Care Provider [...] Orientation Not on file Plan of Treatment Health Maintenance Due Date Last Done Comments Hepatitis C Screen 2005 COVID-19 Vaccine (2022-24 season) 2023 Hepatitis B Vaccine (1 of 3 - 19+ 3-dose series) 09/03
--- OUTSIDE RECORDS SUMMARY | 2024-05-26 17:16 | XMS_ITS | Encounter Summary ---
Author Organization [facility] Address [address] [place] [address] Care Team Providers Care Html Developer Name Role Phone Unavailable Primary Care Provider Unavailabl e Encounter Details Date Type Department Care Team (Late st Contact Info) Description 02/05/2021 Lab Requisition [facility] Pathology & Laboratory Medicine - [facility] [address] [place] [address] Outr Resulting Lab, Provider Social History Tobacco [...] Priority Date/Time Associated Diagnosis Comments ZZCOVID-19 TEST [facility] PCR Today 02/04/2021 16:57 EDT COVID-19 TESTING Routine 02/04/2021 16:5 7 EDT documented in this encounter Results * COVID-19 TEST [facility] LAB PCR (02/04/2021 16:57 EDT) Swab ENTIRE NASOPHARYNX / Unknown 02/04/2021 16:57 EDT 02/05/2021 16:14 EDT Provider Outr Resulting Lab MICROBIOLOGY - GENERAL ORDERABLES [facility] [address] [place] [address] * COVID-19 TESTING (02/04/2021 16:57 EDT) COVID-19 rt-PCR Result Negative Negative 02/06/2021 20:07 EDT [facility] Comment: This test has not [...] clinical observations, patient history, and epidemiological information. Performed on the Curvesher Fusion instrument Performing Lab [facility] Lab 02/06/2021 20:07 EDT [facility] Swab 02/04/2021 16:5 7 EDT 02/05/2021 16:14 EDT Provider Outr Resulting Lab MICROBIOLOGY - GENERAL ORDERABLES [facility] [address] [place] [address] documented in this encounter Visit Diagnoses Not on filedocumented in this encounter
== END 2024-05-26 17:04 | disposition home or self-care (01) ==
LOC: LBN 17:03
PROVIDERS: PCP Nurse Practitioner Family; Visit Provider Physician Assistant Medical
DX: R30.0 Dysuria (principal); N39.0 Urinary tract infection, site not specified
CPT/HCPCS: 87077; 81015; 87086; 87186

== ENCOUNTER 2025-03-22 07:36 | Emergency (ER) | payer MEDICAID, SELFPAY ==
[2025-03-22] VITALS (29 sets, daily range): BP systolic 107–112; BP diastolic 53–74; PULSE 90–120; RESP 16–17; TEMP 36.5–36.8; O2SAT 95–100
--- NOTE | 2025-03-22 07:37 | W.ED.GENAD ---
Discharge Plan Disposition Patient Disposition: Home Discharge Details Clinical Impression: Acute UTI Primary Care Provider: Anabel Pinto ED Provider: Norbert Arrieta Home Meds and New Rx's Prescriptions: New cephalexin 250 mg capsule 250 mg PO QID 5 Days Qty: 20 0RF phenazopyridine 100 mg tablet 100 mg PO TID Qty: 10 0RF Continued multivitamin with folic acid [Tab-A-Bere] 400 mcg tablet 1 tab PO DAILY Nexplanon 68 mg implant 1 implant subdermal ONCE Rx Instructions: as a single dose Discharge Instructions Instructions: Urinary Tract Infection, Adult ED Additional Instructions: You were seen in the emergency department for your burning with urination. Your urine is concerning for urinary tract infection for which you are receiving medication to treat symptoms of dysuria. This additional medication will discolor your urine and tears. Please do not wear contact at risk for stent. For your pain please take medications as follows: 1. Take acetaminophen (Tylenol), 650 mg tabs every 6 hours [2. Take ibuprofen (Advil), 400 mg every 6 hours.] Discharge Data Discharge Date/Time-TO BE ENTERED AT DEPARTURE: 03/22/25 09:04 HPI General Date/Time Provider Initiated Documentation: 03/22/25 07:36. HPI Narrative: MDM This is an overall very well-appearing tachycardic but normothermic 19-year-old female with dysuria and hematuria most consistent with UTI for which patient will receive treatment with cephalexin. No pain out of proportion to suggest necrotizing soft tissue infection. No fevers to suggest pyelonephritis. No abnormal vaginal discharge to suggest increased risk for sexually transmitted infection. No right lower quadrant tenderness to suggest appendicitis. No left lower quadrant tenderness to suggest diverticulitis. No flank pain to suggest increased risk for ureterolithiasis. Patient is under vaccinated however I am not concerned for an atypical infection as she is not immunocompromised. Given no abnormal vaginal discharge I am not suspicious for PID. No rash to abdomen to suggest zoster. Will attempt pain control with acetaminophen and ibuprofen. Patient has not been vomiting to suggest increased risk for acute electrolyte abnormalities I do not feel that she requires IV hydration. She has been tachycardic in the past so we will monitor in the emergency department. 3:30 PM Late charting due to patient care. Patient's tachycardia resolved in the emergency department. We discussed she should return if she developed flank pain fevers or cannot eat or drink. She understood her return indications and was discharged with an empiric trial of outpatient expectant management. HPI This is a female with a history of urinary tract infections presenting with dysuria. She arrived in the ED accompanied by her mother. The patient began experiencing dysuria last night, which was sudden in onset. She also reports mild abdominal discomfort located in the lower abdomen. She describes the current symptoms as worse than her previous urinary tract infections and notes the presence of hematuria, which she has not experienced before. Her last menstrual period was last week. She is sexually active with one male partner and does not use protection. She reports no abnormal vaginal discharge and has no history of sexually transmitted infections. She has no history of kidney stones. The patient is not experiencing fevers, nausea, or vomiting. She reports mild diarrhea. She has no history of abdominal surgeries. She did not receive all her childhood vaccinations. She is not on any routine medications and has no known allergies. 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 She has an approximately [id number] baby. She typically takes ibuprofen for pain management, which she finds effective. Exam General: Well-appearing in no acute distress speaking in complete sentences. Head: Normocephalic, atraumatic. Eye: Extraocular eye movements intact. No conjunctival injection. No scleral icterus. Ear, nose, mouth, throat: Grossly normal inspection. Normal voice, handling secretions normally. Neck: Trachea midline. Cardiovascular: Well-perfused distal extremities. Respiratory: Nonlabored respiration. Gastrointestinal: Nondistended abdomen. Soft. Nontender. No rebound. No guarding. Musculoskeletal: No edema. Moving all 4 extremities spontaneously. Skin: Normal for age and race, grossly normal temperature and turgor. No acute rash. Neurologic: Alert and appropriate, no apparent acute deficits. Psychiatric: Mood and manner are appropriate. Grooming and personal hygiene are appropriate. Related Data Home Medications ?Medication ?Instructions ?Recorded ?Confirmed etonogestrel 68 mg subdermal 1 implant subdermal ONCE 03/07/24 03/22/25 implant (Nexplanon) multivitamin with folic acid 400 1 tab PO DAILY 03/07/24 03/22/25 mcg tablet (Tab-A-Bere) cephalexin 250 mg capsule 250 mg PO QID 5 days #20 caps 03/22/25 phenazopyridine 100 mg tablet 100 mg PO TID #10 tabs 03/22/25 Previous Rx's ?Medication ?Instructions ?Recorded cephalexin 250 mg capsule 250 mg PO QID 5 days #20 caps 03/22/25 phenazopyridine 100 mg tablet 100 mg PO TID #10 tabs 03/22/25 Allergies Allergy/AdvReac Type Severity Reaction Status Date / Time sulfamethoxazole (From Allergy Hives Verified 03/22/25 07:42 Bactrim) trimethoprim (From Bactrim) Allergy Hives Verified 03/22/25 07:42 General MAGDA: 4 PFSH All Active Problems (Updated 03/22/25 @ 08:29 by Norbert Arrieta MD) Acute UTI (Acute) Pain in right foot (Acute) Pain in left foot (Acute) Paronychia of great toe of right foot (Acute) Paronychia of toe of left foot (Acute) Vegetarian (Acute) Agenesis, corpus callosum (Acute) Head lice (Acute) Displaced fracture of phalanx of right great toe (Acute) Syncope and collapse (Acute) Social History Smoking/Tobacco Use Status: Never Smoking risk assessment performed?: Yes Alcohol Intake: never Drug use: Never Substance use type: does not use Housing: house Current gender identity: female Do you feel safe at home: Yes Do you feel safe in your relationship?: Yes Additional Social history: mother and daughter at side
[2025-03-22 08:02] LABS: Bilirubin Negative (Negative); Blood Large (Negative); Clarity Cloudy (Clear); Glucose Negative (Negative); Ketones Negative (Negative); Leukocyte Esterase Moderate (Negative); Nitrite Negative (Negative); Specific Gravity 1.015 (1.005-1.025); Urobilinogen 0.2 mg/dL (Up to 0.2)
[2025-03-22 08:24] LABS: Bacteria Few HPF (Negative); Casts Negative LPF (Negative); Crystals Negative HPF (Negative); Epithelial Cells Negative HPF (Negative); Mucus Negative (Negative); Other Cells Rare Transitional (Negative); RBC >50 HPF (0-2); WBC >50 HPF (0-5)
[2025-03-22] MEDS: Acetaminophen 325 MG TAB 650 MG PO (08:24)
[2025-03-22] MEDS: Ibuprofen 400 MG TAB PO (08:24)
[2025-03-22 08:30] LABS: C & S Indicated? Yes
== END 2025-03-22 09:04 | disposition home or self-care (01) ==
LOC: ER 09:01
PROVIDERS: Emergency Provider Emergency Medicine; PCP Nurse Practitioner Family
DX: N39.0 Urinary tract infection, site not specified (principal)
CPT/HCPCS: 81025; 87077; 99283; 81003; 81015; 87086; 87186

== ENCOUNTER 2025-03-30 21:36 | Outpatient (REF) | payer MEDICAID, SELFPAY ==
[2025-03-30 21:16] LABS: WBC 20-50 HPF (0-5)
[2025-04-03 11:49] LABS: Chlamydia Result Negative (Negative); GC Result Negative (Negative)
== END 2025-03-30 21:37 | disposition home or self-care (01) ==
LOC: LBN 21:36
PROVIDERS: PCP Nurse Practitioner Family; Visit Provider Physician Assistant Medical
DX: R30.0 Dysuria (principal)
CPT/HCPCS: 87077; 87491; 87591; 81015; 87086; 87186; 87480; 87510; 87660

== ENCOUNTER 2025-08-03 18:42 | Outpatient (REF) | payer MEDICAID, SELFPAY ==
[2025-08-03 21:02] LABS: WBC 0-2 HPF (0-5)
== END 2025-08-03 18:43 | disposition home or self-care (01) ==
LOC: LBN 18:42
PROVIDERS: PCP Nurse Practitioner Family; Visit Provider Physician Assistant Medical
DX: R39.15 Urgency of urination (principal)
CPT/HCPCS: 81015; 87086